=== PATIENT | male | born 1975 | race Caucasian/White ===

== ENCOUNTER 2021-11-26 07:38 | Outpatient (REF) | payer OTHER, SELFPAY ==
[2021-11-26 11:39] LABS: Appearance Urine CLEAR; Color Urine YELLOW; Glucose Urine UA NEG (NEG); Leukocyte Esterase Urine NEG (NEG); Nitrite Urine NEG (NEG); Specific Gravity - Urine 1.015 (1.005-1.025); Urine Blood 1+ (NEG); Urine Ketones NEG (NEG); Urine Protein NEG (NEG-TRACE)
[2021-11-26 11:51] LABS: Hematocrit 50.9 % (42.0-52.0); Hemoglobin 16.7 g/dl (14.0-18.0); Mean Corpuscular HGB Conc 32.8 g/dl (31.0-36.0); Mean Corpuscular Hemoglobin 29.3 pg (27.0-33.0); Mean Corpuscular Volume 89.5 fL (80.0-98.0); Mean Platelet Volume 9.4 fL (9.4-12.4); Platelet Count 309 X10*3/uL (160-400); Red Blood Count 5.69 X10*6/uL (4.60-5.80); Red Cell Distribution Width 13.2 % (11.0-16.0); White Blood Count 8.3 X10*3/uL (4.8-10.8)
[2021-11-26 11:56] LABS: Estimated Average Glucose 128 mg/dL; Hemoglobin A1c % 6.1 %
[2021-11-26 12:00] LABS: WBC Urine 0 /HPF (0-4)
[2021-11-26 12:15] LABS: Alanine Aminotransferase 37 U/L (0-40); Albumin Level 4.2 g/dL (3.5-5.0); Alkaline Phosphatase 84 U/L (39-117); Anion Gap 12 (12-20); Aspartate Amino Transferase 23 U/L (5-37); Bilirubin Total 0.4 mg/dL (0.0-1.0); Blood Urea Nitrogen 10 mg/dL (9-16); Calcium 9.5 mg/dL (8.4-10.2); Carbon Dioxide 28 mmol/L (22-29); Chloride 105 mmol/L (96-108); Cholesterol 123 mg/dL; Estimated Glomerular Filt Rate > 60; Glucose Fasting 121 mg/dL (60-99); HDL Cholesterol 37 mg/dL; LDL Cholesterol Calculated 66 mg/dl; Potassium 5.4 mmol/L (3.3-5.1); Sodium 140 mmol/L (135-145); Total Protein 7.1 g/dL (6.5-8.0); Triglycerides 104 mg/dL
[2021-11-26 12:20] LABS: Prostate Specific Antigen Scr 0.28 ng/mL (<0.05-4.0)
== END 2021-11-26 07:39 | disposition home or self-care (01) ==
LOC: HO.HMGCLDS 07:38
PROVIDERS: Visit Provider Internal Medicine
DX: Z00.00 Encounter for general adult medical examination without abnormal findings (principal)
CPT/HCPCS: 36415; 80053; 80061; 81001; 83036; 84153; 85027

== ENCOUNTER 2021-12-08 09:07 | Outpatient (REF) | payer OTHER, SELFPAY ==
[2021-12-08 11:18] LABS: Appearance Urine CLEAR; Color Urine STRAW; Glucose Urine UA NEG (NEG); Leukocyte Esterase Urine NEG (NEG); Nitrite Urine NEG (NEG); Urine Blood 2+ (NEG); Urine Ketones NEG (NEG); Urine Protein NEG (NEG-TRACE)
[2021-12-08 11:36] LABS: WBC Urine 0 /HPF (0-4)
[2021-12-08 11:37] LABS: Alanine Aminotransferase 42 U/L (0-40); Albumin Level 4.2 g/dL (3.5-5.0); Alkaline Phosphatase 86 U/L (39-117); Anion Gap 13 (12-20); Aspartate Amino Transferase 25 U/L (5-37); Bilirubin Total 0.4 mg/dL (0.0-1.0); Blood Urea Nitrogen 9 mg/dL (9-16); Calcium 10.1 mg/dL (8.4-10.2); Carbon Dioxide 26 mmol/L (22-29); Chloride 104 mmol/L (96-108); Cholesterol 134 mg/dL; Estimated Glomerular Filt Rate > 60; Glucose Fasting 99 mg/dL (60-99); HDL Cholesterol 35 mg/dL; LDL Cholesterol Calculated 69 mg/dl; Potassium 4.8 mmol/L (3.3-5.1); Sodium 138 mmol/L (135-145); Total Protein 7.1 g/dL (6.5-8.0); Triglycerides 150 mg/dL
[2021-12-08 11:47] LABS: Estimated Average Glucose 128 mg/dL; Hemoglobin A1c % 6.1 %
== END 2021-12-08 09:08 | disposition home or self-care (01) ==
LOC: HO.HMGCLDS 09:07
PROVIDERS: Visit Provider Internal Medicine
DX: Z00.00 Encounter for general adult medical examination without abnormal findings (principal); E11.9 Type 2 diabetes mellitus without complications; G56.00 Carpal tunnel syndrome, unspecified upper limb; I10 Essential (primary) hypertension; E87.5 Hyperkalemia
CPT/HCPCS: 36415; 80048; 80053; 80061; 81001; 83036

== ENCOUNTER 2021-12-14 10:57 | Emergency (ER) | payer OTHER, SELFPAY ==
--- NOTE | ~2021-12-14 | CT_ITS ---
EXAMINATION: CT ABDOMEN AND PELVIS WITHOUT CONTRAST CLINICAL INFORMATION: Right flank pain COMPARISON: None TECHNIQUE: Multidetector volumetric imaging was performed from the superior aspect of the liver through the pubic symphysis. Sagittal and coronal reformatted images were obtained on the technologist's workstation. This CT examination was performed using dose optimization techniques as appropriate, variously including the following: *Automated exposure control *Adjustment of mA and/or kV according to patient size (this includes techniques or standardized protocols for targeted exams where dose is matched to indication/reason for exam; i.e. extremities or head) *Use of iterative reconstruction technique DLP: 1254 mGy-cm FINDINGS: LUNG BASES: The visualized lung bases are unremarkable. LIVER, GALLBLADDER, AND BILIARY TREE: The liver is normal in size, shape, and attenuation. No focal hepatic lesion or biliary ductal dilatation is present. The gallbladder is unremarkable with no evidence of radiopaque gallstones, gallbladder wall thickening, or obvious pericholecystic inflammatory changes. PANCREAS: Unremarkable. SPLEEN: Unremarkable. ADRENAL GLANDS: Unremarkable. KIDNEYS AND URETERS: The kidneys are normal in size, shape, and attenuation. No hydronephrosis, hydroureter, or calculi seen. No perinephric stranding. BLADDER: Unremarkable. GASTROINTESTINAL TRACT: There is scattered stool, diverticuli and gas seen throughout the colon without distention. There is a small appendicolith within a normal caliber appendix. The stomach is nondistended and appears unremarkable. No inflammatory process seen in the abdomen. ABDOMINAL WALL: No significant hernia is appreciated. LYMPH NODES: Normal. VASCULAR: Unremarkable. PELVIC VISCERA: Unremarkable. OSSEOUS STRUCTURES: There are degenerative disc changes, vacuum disc phenomena and spinal spondylosis at the L5-S1 disc level. No aggressive lytic or sclerotic process seen. CT/CT abdomen pelvis wo con IMPRESSION: No acute intra-abdominal process seen. Scattered colonic diverticulosis without diverticulitis. Small appendicolith in a normal caliber appendix. There is no radiopaque urolith or hydroureteronephrosis in either side. Fleischner guidelines were followed.
[2021-12-14 11:03] VITALS: BP 118/59; BP 133/79; PULSE 79; PULSE 88; RESP 20; TEMP 36.8; O2SAT 95; O2SAT 97; BMI 42.3
--- NOTE | 2021-12-14 11:21 | ED_ITS ---
HPI - Male Genitourinary General Chief complaint: Urogenital-Male Stated complaint: left side pain Time Seen by Provider: 12/14/21 11:21 Source: patient and EMS Mode of arrival: EMS Limitations: no limitations History of Present Illness HPI Narrative: 46-year-old male came in for evaluation of right flank pain. Sudden onset of right flank pain started about an hour ago, the pain was described to be severe 10/10, constant, associated with nausea and diaphoresis, no aggravating factor, no relieving factor. Had a normal urination with no bloody or dark urine. Normal bowel movement. Never had this pain before. No history of kidney stones. No history of abdominal surgery. No recent back trauma or strenuous activity. Related Data Previous Rx's Medication Instructions Recorded olmesartan 20 mg tablet 20 mg PO DAILY #30 tab 12/07/20 tadalafil 20 mg tablet 20 mg PO DAILY #30 tab 01/02/21 metformin 1,000 mg tablet 1,000 mg PO BID #180 tab 07/19/21 atorvastatin 20 mg tablet 20 mg PO DAILY #90 tab 11/22/21 tamsulosin 0.4 mg capsule 0.4 mg PO BEDTIME #90 cap 11/22/21 oxycodone 5 mg tablet 5 mg PO Q8H PRN #10 tab 12/14/21 Allergies Allergy/AdvReac Type Severity Reaction Status Date / Time acetaminophen [Acetaminophen] Allergy Unknown BAD RASH Verified 12/14/21 11:08 AFTER TAKING FOR LONG TIME barium sulfate Allergy Unknown confusion Verified 12/14/21 11:08 lisinopril Allergy Cough Verified 12/14/21 11:08 Review of Systems Review of Systems: All other systems are reviewed and are negative Constitutional: Reports as per HPI and Reports no additional constitutional complaints Eyes: Reports as per HPI and Reports no additional eye complaints Reports system reviewed and no additional complaints, except as documented Cardiovascular: Reports as per HPI and Reports no additional cardiovascular complaints Respiratory: Reports as per HPI and Reports no additional respiratory complaints Gastrointestinal: Reports as per HPI and Reports no additional gastrointestinal complaints Genitourinary: Reports no additional female genitourinary complaints Musculoskeletal: Reports no additional musculoskeletal complaints Skin/Breast: Reports system reviewed and no additional complaints, except as docu Psychiatric: Reports no additional psychiatric complaints Endocrine: Reports no additional endocrine complaints Hematologic/Lymphatic: Reports no additional hematologic/lymphatic complaints Allergic/Immunologic: Reports no additional allergic/immunologic complaints Reports system reviewed and no additional complaints, except as documented and Reports Abnormal speech present [facility] Past Medical History Medical History Ankle fracture, left Annual physical exam BPH (benign prostatic hyperplasia) Carpal tunnel syndrome Cervical spine degeneration Chronic foot ulcer Hematuria Hyperkalemia Hyperlipidemia Overweight Peripheral neuropathy SVT (supraventricular tachycardia) Type 2 diabetes mellitus Family History Family History Father Lung cancer Mother No problems noted. Social History Social History Housing: House Patient Tobacco Use Status: Current everyday Tobacco user Tobacco use type: Cigarette Cigarettes Per Day: 15 e-Cigarette/Vaping Use: Never Used Advance Directives: No Advance Directives Information Provided: No Current occupational status: employed Physical Exam Vital Signs: Vital Signs: Last Vital Signs Temp 98.2 F 12/14/21 11:03 Pulse 79 12/14/21 11:03 Resp 18 12/14/21 12:06 BP 133/79 12/14/21 11:03 Pulse Ox 95 12/14/21 11:03 BMI result Body Mass Index 42.3 Vital signs have been reviewed as appeared to be correct. Blood pressure normal. Heart rate normal. Respiration rate normal. Temperature normal. Oxygen saturation normal. Appearance: Alert. Oriented X3. No acute distress. Head: Normal external exam. Normocephalic. Atraumatic. No Saenz signs noted. No raccoon eyes noted Eyes: PERRLA. EOMI. Conjunctiva and sclera normal. Eyelids normal. ENT: TM's Normal. Pharynx normal. Uvula midline. Moist mucous membranes. No trismus noted. No drooling noted. No muffled voice noted. Neck: Normal inspection. Neck supple. FROM. No adenopathy. Thyroid Normal. No meningeal signs. No neck mass noted. CVS: Normal heart rate and rhythm. Heart sound normal. No murmurs noted. Pulses normal throughout. Respiratory: No respiratory distress. Painless inspiration. Breath sounds normal. No wheezes/rales/rhonchi noted. Chest nontender. No accessory muscle usage noted or decreased air movement noted. Abdomen: Soft and nontender. Bowel sounds normal in all 4 quadrants. No distention noted. No organomegaly noted. No visible injury noted. Back: Right CVA tenderness. Full range of motion noted. Skin: Skin warm and dry. Normal skin color. Normal skin turgor. No rod hes/lesions/lacerations noted. Extremities: No lower extremity edema. Extremities exhibit normal range of motion. Extremities nontender. Neuro: Oriented X 3. Cranial nerve exam: II-XII are grossly intact No motor deficit. No sensory deficit. Reflexes normal. Course Course Course Narrative: Assessment and plan. 46-year-old male came in with sudden onset of right flank pain, CT of the abdom en showed appendicoliths with normal size appendix with leukocytosis consult from Dr. Hebert who examined the patient at the bedside appendicitis is not likely in this case Dr. Hebert's input is appreciated no CT finding of right hydronephrosis or hydroureter or obstructing stone however could have been passed. Patient's symptoms under better control with morphine in the ED will discharge the patient home with oxycodone and follow-up with urologist. [facility] - Male Genitourinary Lab Data Attestation: I reviewed the patient's lab results. Result diagrams: 12/14/21 12:17 12/14/21 12:17 Labs: Lab Results 12/14/21 12/14/21 12/14/21 Range/Units 12:17 12:17 15:14 WBC 12.1 H (4.8-10.8) X10*3/uL RBC 5.18 (4.60-5.80) X10*6/uL Hgb 15.4 (14.0-18.0) g/dl Hct 44.4 (42.0-52.0) % MCV 85.7 (80.0-98.0) fL MCH 29.7 (27.0-33.0) pg MCHC 34.7 (31.0-36.0) g/dl RDW 13.2 (11.0-16.0) % Plt Count 264 (160-400) X10*3/uL MPV 8.8 L (9.4-12.4) fL Immature Gran % (Auto) 0.3 (0.0-0.4) % Neut % (Auto) 85.3 H (45-73) % Lymph % (Auto) 8.8 L (20-40) % [place] % (Auto) 5.1 (2-11) % Eos % (Auto) 0.3 (0-4) % Baso % (Auto) 0.2 (0-2) % Lymph # (Auto) 1.1 L (1.2-4.9) X10*3/uL [place] # (Auto) 0.6 (0.1-1.2) X10*3/uL Eos # (Auto) 0.0 (0.0-0.4) X10*3/uL Baso # (Auto) 0.0 (0.0-0.2) X10*3/uL Abs Immat Gran (auto) 0.04 H (0.00-0.03) X10*3/uL Absolute Neuts (auto) 10.3 H (2.0-8.3) x10*3/uL Absolute Nucleated RBC 0.000 (0.0-0.012) X10*3/uL Nucleated RBC % (auto) 0.0 (0.0-0.2) /100WBC Sodium 137 (135-145) mmol/L Potassium 4.3 (3.3-5.1) mmol/L Chloride 104 (96-108) mmol/L Carbon Dioxide 25 (22-29) mmol/L Anion Gap 12 (12-20) BUN 8 L (9-16) mg/dL Creatinine 0.75 (0.5-1.4) mg/dL Estim Creat Clear Calc 205.8 Estimated GFR > 60 Random Glucose 140 H (60-115) mg/dL Calcium 9.2 D (8.4-10.2) mg/dL Total Bilirubin 0.4 (0.0-1.0) mg/dL Direct Bilirubin 0.2 (0.0-0.5) mg/dL AST 19 (5-37) U/L ALT 33 (0-40) U/L Alkaline Phosphatase 78 (39-117) U/L Total Protein 6.7 (6.5-8.0) g/dL Albumin 4.1 (3.5-5.0) g/dL Lipase 16 (8-78) U/L Urine Color YELLOW Urine Appearance CLEAR Urine pH 6.5 (5.0-8.0) Ur Specific [place] 1.020 (1.005-1.025) Urine Protein NEG (NEG-TRACE) MG/DL Urine Glucose (UA) NEG (NEG) MG/DL Urine Ketones NEG (NEG) MG/DL Urine Blood 1+ H (NEG) Urine Nitrite NEG (NEG) Ur Leukocyte Esterase NEG (NEG) Urine RBC 10-14 H (0) /HPF Urine WBC 0 (0-4) /HPF Ur Squamous Epith Cells NONE /LPF Urine Bacteria NONE /LPF Imaging Data CT scan - pelvis: Attestation: I personally reviewed and interpreted this imaging study as follows: Radiologist's impression: No acute intra-abdominal process seen. ?Scattered colonic diverticulosis without diverticulitis. ?Small appendicolith in a normal caliber appendix. ?There is no radiopaque urolith or hydroureteronephrosis in either side. ? ? Discharge Plan Discharge Clinical Impression: Right flank pain Patient Disposition: Home, Self-Care Instructions: Flank Pain (ED) Prescriptions: New oxycodone 5 mg tablet 5 mg PO Q8H PRN (Reason: pain) Qty: 10 0RF No Action olmesartan 20 mg tablet 20 mg PO DAILY Qty: 30 0RF tadalafil 20 mg tablet 20 mg PO DAILY Qty: 30 0RF metformin 1,000 mg tablet 1,000 mg PO BID Qty: 180 3RF atorvastatin 20 mg tablet 20 mg PO DAILY Qty: 90 3RF tamsulosin 0.4 mg capsule 0.4 mg PO BEDTIME Qty: 90 1RF Referrals: Rahul Hemphill MD [Physician] - 2 days Stand Alone Forms: Work/School Release
[2021-12-14 12:06] VITALS: RESP 18
[2021-12-14] MEDS: Ketorolac Tromethamine 30 MG/ML VIAL IVPUSH (12:06)
[2021-12-14] MEDS: Morphine Sulfate 2 MG/ML CARTRIDGE 1 MG IVPUSH (12:06)
[2021-12-14] MEDS: 0.9 % Sodium Chloride 1,000 ML 999 ML IV (12:07)
[2021-12-14 12:23] LABS: MANUAL DIFF FLAG NO
[2021-12-14 12:25] LABS: Basophils Percent Auto 0.2 % (0-2); Eosinophils Percent Auto 0.3 % (0-4); Hematocrit 44.4 % (42.0-52.0); Hemoglobin 15.4 g/dl (14.0-18.0); Imm Gran Abs Auto 0.04 X10*3/uL (0.00-0.03); Imm Gran Pct Auto 0.3 % (0.0-0.4); Lymphocytes Absolute Auto 1.1 X10*3/uL (1.2-4.9); Lymphocytes Percent Auto 8.8 % (20-40); Mean Corpuscular HGB Conc 34.7 g/dl (31.0-36.0); Mean Corpuscular Hemoglobin 29.7 pg (27.0-33.0); Mean Corpuscular Volume 85.7 fL (80.0-98.0); Mean Platelet Volume 8.8 fL (9.4-12.4); Monocytes Absolute Auto 0.6 X10*3/uL (0.1-1.2); Monocytes Percent Auto 5.1 % (2-11); Neutrophils Absolute Auto 10.3 x10*3/uL (2.0-8.3); Neutrophils Percent Auto 85.3 % (45-73); Platelet Count 264 X10*3/uL (160-400); Red Blood Count 5.18 X10*6/uL (4.60-5.80); Red Cell Distribution Width 13.2 % (11.0-16.0); White Blood Count 12.1 X10*3/uL (4.8-10.8)
[2021-12-14 12:47] LABS: Alanine Aminotransferase 33 U/L (0-40); Albumin Level 4.1 g/dL (3.5-5.0); Alkaline Phosphatase 78 U/L (39-117); Anion Gap 12 (12-20); Aspartate Amino Transferase 19 U/L (5-37); Bilirubin Direct 0.2 mg/dL (0.0-0.5); Bilirubin Total 0.4 mg/dL (0.0-1.0); Blood Urea Nitrogen 8 mg/dL (9-16); Calcium 9.2 mg/dL (8.4-10.2); Carbon Dioxide 25 mmol/L (22-29); Chloride 104 mmol/L (96-108); Creatinine Clr Calc Pharmacy 205.8; Estimated Glomerular Filt Rate > 60; Glucose Random 140 mg/dL (60-115); Lipase 16 U/L (8-78); Potassium 4.3 mmol/L (3.3-5.1); Sodium 137 mmol/L (135-145); Total Protein 6.7 g/dL (6.5-8.0)
--- NOTE | 2021-12-14 13:57 | PM.CNGS ---
History of Present Illness Consult details Consult date: 12/14/21 Requesting physician: Jolly Walker Narrative: 46-year-old male patient presenting with complaints of pain in the right flank. The pain started suddenly this morning while at work soon after going to the bathroom to urinate. Pain started in the right flank and stated in this location. He developed some nausea vomiting after the pain began. He describes the pain as sharp and nonradiating, 10/10 severity. He never had similar pain in the past. He reports 2 episodes of microscopic hematuria noted by his primary care provider. He is actually scheduled for an ultrasound 01/24/2022. He presented to the emergency department and was noted to have tenderness in the right flank. Laboratories revealed WBC of 12. A CT abdomen and pelvis was negative for nephrolithiasis. A fecalith was noted at the tip of the appendix but no inflammatory changes were found. Surgical consultation was requested for evaluation for appendicitis. Review of Systems Constitutional: Constitutional: Denies chills, Denies fever(s), Denies headache(s) and Denies poor appetite ENT: Denies dizziness and Denies headache(s) Cardiovascular: Cardiovascular: Denies chest pain, Denies rapid heart rate, Denies palpitations and Denies slow heart rate Respiratory: Respiratory: Denies chest congestion, Denies cough, Denies pain on inspiration and Denies wheezing Gastrointestinal: Gastrointestinal: Reports abdominal pain (Right flank), Denies bloating, Denies change in stool character, Denies constipation, Denies diarrhea, Reports nausea, Reports vomiting and Denies hematemesis Genitourinary: Genitourinary: Reports as per HPI and Reports difficulty urinating Musculoskeletal: Musculoskeletal: Reports back pain, Denies arthralgias, Denies joint swelling and Denies numbness Integumentary/Breasts: Skin/Breast: Denies change in pigmentation, Denies erythema and Denies rash Neurologic: Denies dizziness, Denies headache(s) and Denies numbness Psychiatric: Psychiatric: Denies anxiety and Denies depression Endocrine: Endocrine: Denies palpitations Hematologic/Lymphatic: Hematologic/Lymphatic: Denies easy bleeding, Denies easy bruising and Denies lymphadenopathy Allergic/Immunologic: Allergic/Immunologic: Denies wheezing PMFSH Past Medical History Medical History Ankle fracture, left Annual physical exam BPH (benign prostatic hyperplasia) Carpal tunnel syndrome Cervical spine degeneration Chronic foot ulcer Hematuria Hyperkalemia Hyperlipidemia Overweight Peripheral neuropathy SVT (supraventricular tachycardia) Type 2 diabetes mellitus Family History Family History Father Lung cancer Mother No problems noted. Social History Social History Housing: House Patient Tobacco Use Status: Current everyday Tobacco user Tobacco use type: Cigarette Cigarettes Per Day: 15 e-Cigarette/Vaping Use: Never Used Advance Directives: No Advance Directives Information Provided: No Current occupational status: employed Meds Allergies Allergy/AdvReac Type Severity Reaction Status Date / Time acetaminophen [Acetaminophen] Allergy Unknown BAD RASH Verified 12/14/21 11:08 AFTER TAKING FOR LONG TIME barium sulfate Allergy Unknown confusion Verified 12/14/21 11:08 lisinopril Allergy Cough Verified 12/14/21 11:08 Physical Exam Vital Signs: Vital Signs: Last Vital Signs Temp 98.2 F 12/14/21 11:03 Pulse 79 12/14/21 11:03 Resp 18 12/14/21 12:06 BP 133/79 12/14/21 11:03 Pulse Ox 95 12/14/21 11:03 BMI result Body Mass Index 42.3 Const: General: cooperative, comfortable and well developed Nutritional Appearance: well nourished Orientation/consciousness: patient oriented x3 Eyes: Sclerae: sclerae normal EOM: EOMs intact bilaterally Neck: Neck: Yes normal visual inspection Resp: Effort & Inspection: normal respiratory effort, no cough, no respiratory distress and no stridor Cardio: Jugular venous distension: no JVD GI: Other: Tenderness noted in the left flank. No anterior abdominal pain is noted in the right upper quadrant or right lower quadrant. There is no rebound, guarding, or rigidity. Inspection: Yes normal to inspection Palpation (GI): Soft to palpation, nontender, no guarding and not rigid Percussion: Yes normal to percussion Auscultation: normal bowel sounds Rectal Exam - Male: Yes deferred Skin: General skin exam: dry skin Rashes: no rashes Neuro: General: patient oriented x3 and no focal motor deficits Extrem: General: Yes full ROM and Yes no clubbing, cyanosis or edema Psych: Appearance: grossly normal Results Labs Result diagrams: 12/14/21 12:17 12/14/21 12:17 Labs: Abnormal lab results 12/14/21 12/14/21 Range/Units 12:17 12:17 WBC 12.1 H (4.8-10.8) X10*3/uL MPV 8.8 L (9.4-12.4) fL Neut % (Auto) 85.3 H (45-73) % Lymph % (Auto) 8.8 L (20-40) % Lymph # (Auto) 1.1 L (1.2-4.9) X10*3/uL Abs Immat Gran (auto) 0.04 H (0.00-0.03) X10*3/uL Absolute Neuts (auto) 10.3 H (2.0-8.3) x10*3/uL BUN 8 L (9-16) mg/dL Random Glucose 140 H (60-115) mg/dL Short CBC 12/14/21 Range/Units 12:17 WBC 12.1 H (4.8-10.8) X10*3/uL Hgb 15.4 (14.0-18.0) g/dl Hct 44.4 (42.0-52.0) % Plt Count 264 (160-400) X10*3/uL BMP 12/14/21 12:17 Sodium 137 Potassium 4.3 Chloride 104 Carbon Dioxide 25 BUN 8 L Creatinine 0.75 Calcium 9.2 D Liver Function 12/14/21 Range/Units 12:17 Total Bilirubin 0.4 (0.0-1.0) mg/dL Direct Bilirubin 0.2 (0.0-0.5) mg/dL AST 19 (5-37) U/L ALT 33 (0-40) U/L Alkaline Phosphatase 78 (39-117) U/L Albumin 4.1 (3.5-5.0) g/dL All other labs normal. Assessment and Plan (1) Right flank pain: Status: Acute (2) Hematuria: Status: Acute Plan 46-year-old male patient with a sudden onset of abdominal pain located mainly in the right flank. Pain is nonradiating and not associated with motion. Patient has a prior history of microscopic hematuria. Workup today revealed an elevated WBC and CT with a fecalith within the appendix but no inflammatory changes. No nephrolithiasis was identified as well. Abdominal examination is very benign with no right lower quadrant or right upper quadrant tenderness. There is mild CVA tenderness to palpation. Procedures Date of Service Date of Service: 12/14/21
--- NOTE | 2021-12-14 13:59 | PC.NURSE ---
patient reports feeling improved overall, but symptoms are starting to increase at this time. patient in no obvious distress, family at bedside.
[2021-12-14 15:20] LABS: Appearance Urine CLEAR; Color Urine YELLOW; Glucose Urine UA NEG (NEG); Leukocyte Esterase Urine NEG (NEG); Nitrite Urine NEG (NEG); PH 6.5 (5.0-8.0); UACC Culture Trigger NO; Urine Blood 1+ (NEG); Urine Ketones NEG (NEG); Urine Protein NEG (NEG-TRACE)
[2021-12-14 15:41] LABS: WBC Urine 0 /HPF (0-4)
== END 2021-12-14 16:06 | disposition home or self-care (01) ==
PROVIDERS: Emergency Provider Emergency Medicine; PCP Internal Medicine
DX: R10.9 Unspecified abdominal pain (principal); D72.829 Elevated white blood cell count, unspecified; E11.9 Type 2 diabetes mellitus without complications; E78.5 Hyperlipidemia, unspecified; F17.200 Nicotine dependence, unspecified, uncomplicated; Z79.02 Long term (current) use of antithrombotics/antiplatelets
CPT/HCPCS: 36415; 74176; 80048; 80076; 81001; 83690; 85025; 96361; 96374; 96375; 99283; 99284; J1885; J2270

== ENCOUNTER 2022-01-24 08:08 | Outpatient (REF) | payer OTHER, SELFPAY ==
--- NOTE | 2022-01-24 08:00 | EMG_ITS ---
Bilateral median and ulnar motor and sensory studies were performed. Bilateral radial sensory studies were performed and paraspinal muscles were tested with a needle. IMPRESSION: This study revealed [id number] bilateral median neuropathy across carpal tunnel, mild ulnar neuropathy across cubital tunnel, and underlying demyelinating and axonal sensorimotor peripheral neuropathy. MD JOEY Vega/EMILY / [id number]
== END 2022-01-24 08:09 | disposition home or self-care (01) ==
LOC: HO.NEURO 08:08
PROVIDERS: Visit Provider Internal Medicine
DX: G56.03 Carpal tunnel syndrome, bilateral upper limbs (principal)
CPT/HCPCS: 95886; 95911

== ENCOUNTER 2022-04-01 08:49 | Outpatient (REF) | payer OTHER, SELFPAY ==
--- NOTE | ~2022-04-01 | US_ITS ---
EXAMINATION: US RETROPERITONEAL COMPLETE (RENAL) CLINICAL INFORMATION: Hematuria, unspecified. COMPARISON: CT abdomen and pelvis without contrast 12/14/2021. TECHNIQUE: Real-time imaging of the kidneys and bladder. FINDINGS: RIGHT KIDNEY: 13.6 x 5.4 x 6.9 cm (SAG x AP x TRV). The kidney is normal in size, contour, and echogenicity. Renal cortical thickness is normal. No calculi or focal parenchymal lesions. No hydronephrosis. LEFT KIDNEY: 13.3 x 6.0 x 6.2 cm (SAG x AP x TRV). The kidney is normal in size, contour, and echogenicity. Renal cortical thickness is normal. No calculi or focal parenchymal lesions. No hydronephrosis. BLADDER: Well distended and normal. Bilateral ureteral jets are demonstrated. Prevoid bladder volume is 481 mL. Postvoid bladder volume is 11 mL. PROSTATE VOLUME: 23 mL. US/US retroperitoneal comp IMPRESSION: Unremarkable renal ultrasound. Tiny postvoid residual bladder volume. Normal bilateral ureteral jets.
== END 2022-04-01 08:50 | disposition home or self-care (01) ==
LOC: HO.HMGCX 08:49
PROVIDERS: Visit Provider Internal Medicine
DX: R31.9 Hematuria, unspecified (principal)
CPT/HCPCS: 76770

== ENCOUNTER → 2022-05-09 09:59 | Outpatient (BNVA) | payer OTHER, SELFPAY | PROVIDERS: PCP Internal Medicine; Visit Provider Urology | DX: N40.0 Benign prostatic hyperplasia without lower urinary tract symptoms (principal); N52.1 Erectile dysfunction due to diseases classified elsewhere; E11.69 Type 2 diabetes mellitus with other specified complication | CPT/HCPCS: 51798 ==

== ENCOUNTER 2022-08-26 06:26 | Outpatient (REF) | payer OTHER, SELFPAY ==
[2022-08-26 11:58] LABS: Hematocrit 48.1 % (42.0-52.0); Hemoglobin 16.2 g/dl (14.0-18.0); Mean Corpuscular HGB Conc 33.7 g/dl (31.0-36.0); Mean Corpuscular Hemoglobin 29.8 pg (27.0-33.0); Mean Corpuscular Volume 88.6 fL (80.0-98.0); Mean Platelet Volume 9.5 fL (9.4-12.4); Platelet Count 299 X10*3/uL (160-400); Red Blood Count 5.43 X10*6/uL (4.60-5.80); Red Cell Distribution Width 13.3 % (11.0-16.0); White Blood Count 7.8 X10*3/uL (4.8-10.8)
[2022-08-26 12:15] LABS: Alanine Aminotransferase 33 U/L (0-40); Albumin Level 4.2 g/dL (3.5-5.0); Alkaline Phosphatase 77 U/L (39-117); Anion Gap 15 (12-20); Aspartate Amino Transferase 20 U/L (5-37); Bilirubin Total 0.3 mg/dL (0.0-1.0); Blood Urea Nitrogen 9 mg/dL (9-16); Calcium 9.6 mg/dL (8.4-10.2); Carbon Dioxide 25 mmol/L (22-29); Chloride 105 mmol/L (96-108); Cholesterol 125 mg/dL; Estimated Glomerular Filt Rate > 60; Glucose Fasting 115 mg/dL (60-99); HDL Cholesterol 36 mg/dL; LDL Cholesterol Calculated 59 mg/dl; Potassium 5.1 mmol/L (3.3-5.1); Sodium 140 mmol/L (135-145); Triglycerides 150 mg/dL
[2022-08-26 12:31] LABS: Estimated Average Glucose 120 mg/dL; Hemoglobin A1c % 5.8 %
[2022-08-26 12:43] LABS: Folate 6.7 ng/mL (> or = 4.0); Vitamin B12 197 pg/mL (200-900)
== END 2022-08-26 06:27 | disposition home or self-care (01) ==
LOC: HO.HMGCLDS 06:26
PROVIDERS: PCP Internal Medicine; Visit Provider Internal Medicine
DX: E11.9 Type 2 diabetes mellitus without complications (principal); E87.5 Hyperkalemia; I10 Essential (primary) hypertension
CPT/HCPCS: 36415; 80053; 80061; 82607; 82746; 83036; 85027

== ENCOUNTER 2023-02-10 06:41 | Outpatient (REF) | payer OTHER, SELFPAY ==
[2023-02-10 12:07] LABS: Alanine Aminotransferase 35 U/L (0-40); Alkaline Phosphatase 79 U/L (39-117); Anion Gap 13 (12-20); Aspartate Amino Transferase 18 U/L (5-37); Bilirubin Total 0.4 mg/dL (0.0-1.0); Blood Urea Nitrogen 8 mg/dL (9-16); Calcium 9.1 mg/dL (8.4-10.2); Carbon Dioxide 25 mmol/L (22-29); Chloride 107 mmol/L (96-108); Cholesterol 133 mg/dL; Estimated Glomerular Filt Rate > 60; Glucose Fasting 117 mg/dL (60-99); HDL Cholesterol 34 mg/dL; LDL Cholesterol Calculated 70 mg/dl; Potassium 5.2 mmol/L (3.3-5.1); Sodium 140 mmol/L (135-145); Total Protein 6.5 g/dL (6.5-8.0); Triglycerides 146 mg/dL
[2023-02-10 12:14] LABS: Creatinine Urine 70.73 mg/dL; Microalbumin Urine < 5.0 mg/L
[2023-02-10 12:17] LABS: Estimated Average Glucose 131 mg/dL; Hemoglobin A1c % 6.2 %
[2023-02-10 12:39] LABS: Folate 4.2 ng/mL (> or = 4.0); Vitamin B12 1381 pg/mL (200-900)
== END 2023-02-10 06:42 | disposition home or self-care (01) ==
LOC: HO.HMGCLDS 06:41
PROVIDERS: PCP Internal Medicine; Visit Provider Internal Medicine
DX: E53.8 Deficiency of other specified B group vitamins (principal); I10 Essential (primary) hypertension; G56.00 Carpal tunnel syndrome, unspecified upper limb; E78.5 Hyperlipidemia, unspecified
CPT/HCPCS: 36415; 80053; 80061; 82043; 82607; 82746; 83036

== ENCOUNTER → 2023-03-26 08:12 | Outpatient (BNVA) | payer OTHER, SELFPAY | PROVIDERS: PCP Internal Medicine; Visit Provider Orthopaedic Surgery ==

== ENCOUNTER 2023-04-24 07:07 | Day surgery (SDC) | payer OTHER, SELFPAY ==
[2023-04-21 13:33] VITALS: BMI 41.1
--- NOTE | 2023-04-23 09:15 | HO.ANESPROP2 ---
Documented by User: Valery Mccall NP 04/23/23 09:16 HPI - Anesthesia Eval Consult details Narrative: 48yo M for Right Carpal Tunnel Release, Cubital Tunnel Release vs transposition PMFSH Active Problems Active Problems: All Active Problems (Updated 04/21/23 @ 13:28 by Zaira Vickers, RN) HTN (hypertension) (Acute) Male erectile dysfunction, unspecified (Acute) Right flank pain (Acute) Cervical radiculopathy (Acute) Erectile dysfunction associated with type 2 diabetes mellitus (Acute) Vitamin B12 deficiency (Acute) Carpal tunnel syndrome on both sides (Acute) Cubital tunnel syndrome, bilateral (Acute) Overweight (Acute) Hyperlipidemia (Acute) Hematuria (Acute) Hyperkalemia (Acute) BPH (benign prostatic hyperplasia) (Acute) Carpal tunnel syndrome (Acute) Type 2 diabetes mellitus (Acute) Annual physical exam (Acute) Past Medical History Medical History (Updated 04/21/23 @ 13:28 by Zaira Vickers RN) Ankle fracture, left Annual physical exam BPH (benign prostatic hyperplasia) Carpal tunnel syndrome Cervical spine degeneration Chronic foot ulcer Hematuria History of snoring Hyperkalemia Hyperlipidemia Overweight Peripheral neuropathy SVT (supraventricular tachycardia) Type 2 diabetes mellitus Family History Family History Father Lung cancer Mother No problems noted. Sister Substance use disorder Sister Substance use disorder Surgical History Surgical History (Updated 04/24/23 @ 07:52 by Isabella Back) H/O cardiac radiofrequency ablation H/O foot surgery [place] teeth extracted Social History Social History (Updated 03/26/23 @ 08:29 by DEEP Payton) Housing: House Patient Tobacco Use Status: Current everyday Tobacco user Tobacco use type: Cigarette Cigarettes Per Day: 10 Years Smoked: 32 Smoked in Last 30 Days: Yes e-Cigarette/Vaping Use: Never Used Use of substances other than those prescribed or required for medical reasons: No Are you DNR?: No Advance Directives: No Advance Directives Information Provided: Yes Current occupational status: employed 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 Cognitive needs: No Hearing needs: No Vision needs: No Meds Allergies Allergy/AdvReac Type Severity Reaction Status Date / Time acetaminophen [Acetaminophen] Allergy Unknown BAD RASH Verified 04/24/23 07:52 AFTER TAKING FOR LONG TIME lisinopril Allergy Cough Verified 04/24/23 07:52 Exam Exam Date and Time: April 23, 2023 0915 Height,Weight and Vital Signs: Height 6 ft 5 in Weight 157.397 kg Pertinent Lab Results Pertinent Lab Results: Laboratory Tests 08/26/22 02/10/23 06:30 06:46 WBC 7.8 Hgb 16.2 Hct 48.1 Plt Count 299 Sodium 140 Potassium 5.2 H Chloride 107 Carbon Dioxide 25 BUN 8 L Creatinine 0.79 Assessment and Plan Assessment Anesthesia Assessment: Chart Reviewed Documented by User: Judith Prescott MD 04/24/23 10:00 [facility] Past Medical History Medical History (Updated 04/21/23 @ 13:28 by Zaira Vickers RN) Ankle fracture, left Annual physical exam BPH (benign prostatic hyperplasia) Carpal tunnel syndrome Cervical spine degeneration Chronic foot ulcer Hematuria History of snoring Hyperkalemia Hyperlipidemia Overweight Peripheral neuropathy SVT (supraventricular tachycardia) Type 2 diabetes mellitus Family History Family History Father Lung cancer Mother No problems noted. Sister Substance use disorder Sister Substance use disorder Family history of problems with anesthesia: No Surgical History Surgical History (Updated 04/24/23 @ 07:52 by Isabella Back) H/O cardiac radiofrequency ablation H/O foot surgery [place] teeth extracted History of Problems with Anesthesia: No Social History Social History (Updated 03/26/23 @ 08:29 by DEEP Payton) Housing: House Patient Tobacco Use Status: Current everyday Tobacco user Tobacco use type: Cigarette Cigarettes Per Day: 10 Years Smoked: 32 Smoked in Last 30 Days: Yes e-Cigarette/Vaping Use: Never Used Use of substances other than those prescribed or required for medical reasons: No Are you DNR?: No Advance Directives: No Advance Directives Information Provided: Yes Current occupational status: employed 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 Cognitive needs: No Hearing needs: No Vision needs: No Meds Allergies Allergy/AdvReac Type Severity Reaction Status Date / Time acetaminophen [Acetaminophen] Allergy Unknown BAD RASH Verified 04/24/23 07:52 AFTER TAKING FOR LONG TIME lisinopril Allergy Cough Verified 04/24/23 07:52 Exam Airway Mallampati Class: II TM Dist: >3cm Neck ROM: Full Assessment and Plan Assessment Anesthesia Assessment: Anesthesia Plan Discussed Final Anesthetic Review Family History of Problems with Anesthesia: No History of Problems with Anesthesia: No NPO: Yes ASA Class: III Final Preanesthetic Review: No Changes in Pt Med Stat, Meds/Allgs Chart Reviewed, Consent Obtained/Reviewed and Anes Risks/Benef Reviewed Patient Risk: Intermediate Procedure Risk: Low Anesthetic Plan Anesthetic Plan: GA Disposition: Standard PACU
[2023-04-24] VITALS (7 sets, daily range): BP systolic 133–158; BP diastolic 83–97; PULSE 81–97; RESP 12–16; TEMP 36.6–36.8; O2SAT 94–97; BMI 39.1
[2023-04-24 08:07] LABS: Glucose, Whole Blood 134 mg/dL (60-115)
[2023-04-24] MEDS: Lactated Ringers 1,000 ML 100 ML IVCONT (08:10)
--- NOTE | 2023-04-24 09:51 | MHC.SHP ---
Pre-Procedural Eval Section A Date of Service: 04/24/23 The patient is an INPATIENT: No Changes since office visit: No Cold of Flu in the past 2 weeks, No New Medical Problems, No Changes in Medication and No Patient answered all questions The History & Physical has been completed within 30 days and I have reviewed it.: Yes Section B Chief Complaint: Lesion of ulnar nerve, right upper limb,carpal suhail Allergies: Allergies Allergy/AdvReac Type Severity Reaction Status Date / Time acetaminophen [Acetaminophen] Allergy Unknown BAD RASH Verified 04/24/23 07:52 AFTER TAKING FOR LONG TIME lisinopril Allergy Cough Verified 04/24/23 07:52 Plan I have reviewed the history and physical and performed a pertinent physical examination on my patient. No changes have occurred unless specified. Time Spent With Patient Time: Total time managing care of this patient today ____ minutes.
--- NOTE | 2023-04-24 09:51 | W.PM.OPN ---
Operative Note Operative Note Date of Service: 04/24/23 Narrative: Operative Note Narrative: Preop diagnosis: 1. Right Cubital tunnel syndrome 2. Right carpal tunnel syndrome Postop diagnosis: Same Procedure: 1. Right Cubital Tunnel Release 2. Right carpal tunnel release Surgeon: Missy Flores MD Anesthesia: General Anesthesia Findings: Thickening and fibrosis about the ulnar nerve at the cubital tunnel Implants: none Tourniquet time: 35 minutes EBL: 5.0 ml Specimen: none Drains: None Complications: None Disposition: Brought to the recovery room in stable condition Plan: Follow-up in 10-14 days for wound check, and suture removal Indications: The patient is 48 years old with right carpal tunnel syndrome and right cubital tunnel syndrome . The risks and benefits of operative treatment, including but not limited to risk of damage to blood vessels, nerves, tendons, infection, recurrence, persistent pain or numbness, incomplete resolution of preoperative symptoms, or need for further surgery were discussed with the patient and they wished to proceed with surgery. Procedure: Once consent was obtained patient was brought back to the operating suite and placed in the operating table in a supine position. Perioperative antibiotics and anesthesia was administered by the anesthesia team. The limb was prepped and draped in a standard surgical fashion, and a sterile tourniquet applied to the proximal aspect of the right upper extremity. The limb was elevated exsanguinated with Esmarch bandage and the tourniquet inflated to 250 mm of mercury for a total tourniquet time of 35 minutes. Once assured that we had a good block, a 2.0 cm longitudinal incision was made centered over the right carpal tunnel. The incision was made through the skin to the subcutaneous tissues using a #15 blade. Dissection was made down to the level of the transverse carpal ligament with care being taken to protect the palmar cutaneous nerve. Once the transverse carpal ligament was clearly visualized, a longitudinal incision was made in the transverse carpal ligament 1st using a #15 blade, then using tenotomy scissors under direct visualization. Care was taken to look for and protect the motor branch of the median nerve when seen in this area. Once satisfied with our carpal tunnel release the wound was irrigated with normal saline. A 6 cm gently curved but longitudinally oriented incision was made centered over the cubital tunnel of the right upper extremity. Incision was made through the skin to the subcutaneous tissues using a # 15 Blade. I then dissected down to the level of the medial epicondyle and the cubital tunnel using tenotomy scissors. Care was taken to protect the lateral antebrachial cutaneous nerve. The ulnar nerve was identified just posterior to the medial intermuscular septum. The ulnar nerve was released in a proximal to distal direction using tenotomy in iris scissors while directly visualizing and protecting the ulnar nerve. Thickening and fibrosis was appreciated about the ulnar nerve as it passed through the cubital tunnel. The ulnar nerve was assessed as I passed the elbow through full flexion and extension and was found to remain stable within its groove. At this point the tourniquet was deflated and hemostasis obtained with a brief period of local pressure and bipolar electrocautery. The wound was copiously irrigated with normal saline. The subcutaneous layer was closed with 4-0 Vicryl suture, and the skin edges were reapproximated using a subcuticular closure with 4-0 Monocryl suture. Mastisol and Steri-Strips were applied.. The wound was infiltrated with some 0.5% plain ropivacaine for postop pain control and sterile dressings were applied. The patient appears to have tolerated the procedure well and with no complications. All digits were well vascularized conclusion of the case.
== END 2023-04-24 12:45 | disposition home or self-care (01) ==
PROVIDERS: PCP Internal Medicine; Visit Provider Orthopaedic Surgery
PROC: (CPT 64721; principal; 2023-04-24 08:50)
PROC: (CPT 64718; 2023-04-24 08:50)
DX: G56.01 Carpal tunnel syndrome, right upper limb (principal); G56.21 Lesion of ulnar nerve, right upper limb; E11.9 Type 2 diabetes mellitus without complications
CPT/HCPCS: 64721; 64718; 82947; J0690; J1100; J2250; J2405; J2795; J3010

== ENCOUNTER 2023-05-07 13:36 | Outpatient (AMB) | payer OTHER, SELFPAY ==
--- NOTE | 2023-05-07 13:46 | A.OFFVIS_ITS ---
Intake Intake Visit Reasons: PO R Cubital & CTR 04/24/23 AR Intake Note: Woody 48 yr old male presents today for his P/O visit for his right CTS and Cubital release from 04/24/23. Sutures removed and steri strips applied. States his numbness is some what better but still has numbness. Allergies acetaminophen [Acetaminophen] Allergy (Unknown, Verified 05/07/23 14:02) BAD RASH AFTER TAKING FOR LONG TIME lisinopril Allergy (Verified 05/07/23 14:02) Cough HPI PO R Cubital & CTR 04/24/23 AR HPI Details Woody is a 48 year old right hand dominant man who presents S/P right carpal tunnel release & cubital tunnel release, DOS: 04/24/23. He says he is doing well and denies any pain. He says his sensation has sli ghtly improved but he continues to have numbness in all fingers of his right hand. He continues to have dense numbness in all digits of his left hand. He would like to schedule surgery sooner for his left side as he is remaining out of work until his surgeries are completed [facility] Medical History Ankle fracture, left Annual physical exam BPH (benign prostatic hyperplasia) Carpal tunnel syndrome Cervical spine degeneration Chronic foot ulcer Hematuria History of snoring Hyperkalemia Hyperlipidemia Overweight Peripheral neuropathy SVT (supraventricular tachycardia) Type 2 diabetes mellitus Surgical History H/O cardiac radiofrequency ablation H/O foot surgery [place] teeth extracted Family History Father Lung cancer Mother No problems noted. 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 Sutures removed and Steri-Strips applied He can make a fist and extend all his digits Sensation is slightly improved, but still with dense numbness to the tips of all digits of the right hand Cap refill is brisk Nerve Conduction Study: IMPRESSION:? This study revealed [id number] bilateral median neuropathy across carpal tunnel, mild ulnar neuropathy across cubital tunnel, and underlying demyelinating and axonal sensorimotor peripheral neuropathy. ? Adria Donahue MD 01/24/2022 Psych Appearance: grossly normal Affect: normal affect Attitude: cooperative Assessment & Plan Assessment & Plan (1) Carpal tunnel syndrome on both sides: Code(s): G56.03 - Carpal tunnel syndrome, bilateral upper limbs (2) Cubital tunnel syndrome, bilateral: Code(s): G56.23 - Lesion of ulnar nerve, bilateral upper limbs (3) Type 2 diabetes mellitus: Code(s): E11.9 - Type 2 diabetes mellitus without complications Plan Assessment & Plan: 1. Right Carpal tunnel syndrome, S/P release DOS: 04/24/23 Pre-operatively with dense numbness 2. Right Cubital tunnel syndrome, S/P release DOS: 04/24/23 Pre-operatively with dense numbness No thenar or intrinsic wasting The patient appears to be doing well post-operatively I educated him about the post-operative course I discussed activity modifications, he is to lift nothing heavier than a cellphone for the next two weeks He will perform gentle ROM exercises at home He should avoid any underwater activities for the next 5 days He should gently massage about the incision site to reduce the risk of hype rsensitivity 3. Left Carpal tunnel syndrome, mild-moderate With dense numbness 4. Left Cubital tunnel syndrome, mild With dense numbness No thenar or intrinsic wasting I educated him about this condition I discussed treatment options The patient would like to proceed with surgery The risks and benefits of operative treatment were discussed with the patient and the patient wishes to proceed with surgery. These risks include, but are not limited to risk of damage to blood vessels, nerves, tendons, infection, recurrence, incomplete relief of preoperative symptoms, persistent pain, possible need for further surgery and the risks associated with regional blocks and anesthesia. The plan is to take the patient to the operating room sometime in the next few weeks for the following procedures: 1. Left carpal tunnel release, under general 2. Left cubital tunnel release vs transposition, under general All of the preoperative paperwork including the consent was filled out today. All the patient's questions were answered. The patient understands that they will be contacted by our dental scheduler soon to schedule this procedure He denies blood thinners, asthma, heart, lung, kidney issues He says he is Diabetic, is taking metformin and his most recent HgA1c was 6.2% on 02/10/23 Scribed for Missy Flores MD by Rubio Ayala, chief medical officer, on 05/07/23 at 2:05 PM, EST. Coding Level of Care Code Est Pt Level 4 (01226) Diagnoses Carpal tunnel syndrome on both sides G56.03 Cubital tunnel syndrome, bilateral G56.23 Type 2 diabetes mellitus E11.9
== END 2023-05-07 14:15 | disposition home or self-care (01) ==
PROVIDERS: Visit Provider Orthopaedic Surgery
DX: G56.03 Carpal tunnel syndrome, bilateral upper limbs (principal); G56.23 Lesion of ulnar nerve, bilateral upper limbs; E11.9 Type 2 diabetes mellitus without complications
CPT/HCPCS: 99214

== ENCOUNTER → 2023-05-07 13:36 | Outpatient (BNVA) | payer OTHER, SELFPAY | PROVIDERS: Visit Provider Orthopaedic Surgery ==

== ENCOUNTER 2023-05-12 11:00 | Outpatient (AMB) | payer OTHER, SELFPAY ==
--- NOTE | 2023-05-12 11:21 | A.OFFVIS_ITS ---
Intake Vital Signs 05/12/23 11:23 Height 6 ft 5 in Weight 337 lb BMI 40.0 BP 119/73 Blood Pressure Location Lt brachial Position Sitting Pulse 91 Intake Visit Reasons: Colonoscopy screening Intake Note: Patient 1st pre colonoscopy screening. Patient cc: diarrhea on ad off. Denies any other GI issues. Digital Assistant Required: No Accompanied by: Spouse Allergies acetaminophen [Acetaminophen] Allergy (Unknown, Verified 05/12/23 11:21) BAD RASH AFTER TAKING FOR LONG TIME lisinopril Allergy (Verified 05/12/23 11:21) Cough Medication List - Last Reconciled 05/12/23 by Kinga Salcedo PA-C atorvastatin 20 mg PO DAILY cyanocobalamin (vitamin B-12) 1,000 mcg PO DAILY metformin 1,000 mg PO BID olmesartan 20 mg PO DAILY oxycodone-acetaminophen 5-325 mg 1 tab PO Q6H PRN tadalafil 10 mg PO DAILY 90 days tamsulosin 0.4 mg PO BEDTIME HPI HPI Comments History of Present Illness Details A 48 y/o male referred for index screening colonoscopy-he has no GI or general complaints Normal bowel pattern, good appetite No family history of GI cancer No respiratory or cardiac issues Recent carpal tunnel surgery doing well No nausea, vomiting, hematemesis, hematochezia fever or chills PFSH Medical History Ankle fracture, left Annual physical exam BPH (benign prostatic hyperplasia) Carpal tunnel syndrome Cervical spine degeneration Chronic foot ulcer Hematuria History of snoring Hyperkalemia Hyperlipidemia Overweight Peripheral neuropathy SVT (supraventricular tachycardia) Type 2 diabetes mellitus Surgical History H/O cardiac radiofrequency ablation H/O foot surgery [place] teeth extracted Family History Father Lung cancer Mother No problems noted. 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 Cognitive needs: No Hearing needs: No Vision needs: No Review of Systems Const All systems reviewed & are unremarkable except as noted in HPI and below Card Denies chest pain and Denies dyspnea Resp Denies dyspnea GI Denies abdominal pain, Denies nausea and Denies vomiting Physical Exam Vital Signs: Last Vital Signs Pulse 91 05/12/23 11:23 BP 119/73 05/12/23 11:23 BMI result Body Mass Index 40.0 Const General: cooperative, healthy appearing and comfortable Nutritional Appearance: overweight Orientation/consciousness: patient oriented x3 Limitations: no limitations Eyes Sclerae: sclerae normal Resp Effort & Inspection: normal respiratory effort and able to speak in complete sentences Auscultation: clear to auscultation bilaterally Cardio Rate: regular rate Rhythm: regular rhythm Heart sounds: S1 normal heart sound present and S2 normal heart sound present GI Palpation (GI): Soft to palpation and nontender Auscultation: normal bowel sounds Skin General skin exam: no rashes or lesions noted Neuro General: patient oriented x3 Extrem General: Yes full ROM Psych Appearance: grossly normal and well kempt Mental Status: mental status grossly normal Speech and movement: Normal speech and movement present Affect: normal affect Attitude: cooperative Thought process: Normal thought process present Thought content: Normal thought content present Insight: Good insight present (Psych) Judgement: Good judgement present (Psych) Assessment & Plan Assessment & Plan (1) Encounter for screening colonoscopy: Comment: Shanika Orourke index screening colonoscopy-no GI complaints Code(s): Z12.11 - Encounter for screening for malignant neoplasm of colon Plan Index screening colonoscopy MG omit metformin tatiana before as well morning of Bariatric bed Orders: Orders Colonoscopy - GI Use Only Today Z12.11 - Encounter for screening for malignant neoplasm of colon Medications: New bisacodyl (Dulcolax (bisacodyl)) Take 4 tablets by mouth at 12:00pm the day before your procedure. 20 mg (4 x 5 mg) PO ONCE 4 tabs 0RF colonoscopy prep 1 day Z12.11 - Encounter for screening for malignant neoplasm of colon polyethylene glycol 3350 (Miralax) Take as directed by mouth the day before your procedure. 238 grams PO ONCE PRN 238 grams 0RF laxative effect 1 day Patient Instructions: A 48 y/o male index screening colonoscopy no GI complaint Discussed procedure, risks, need for escorted due to anesthesia MiraLax Gatorade split prep Omit metformin evening before as well as morning of procedure Literature given Encouraged to call questions or concerns Appreciate the opportunity assist in the care the patient Coding Level of Care Code New Pt Level 3 (26215) Diagnoses Encounter for screening colonoscopy Z12.11 Time Spent (min) 25
[2023-05-12 11:23] VITALS: BP 119/73; PULSE 91; BMI 40.0
== END 2023-05-12 13:00 | disposition home or self-care (01) ==
PROVIDERS: PCP Internal Medicine; Visit Provider Physician Assistant
DX: Z01.818 Encounter for other preprocedural examination (principal); Z12.11 Encounter for screening for malignant neoplasm of colon
CPT/HCPCS: 99203

== ENCOUNTER → 2023-05-12 11:00 | Outpatient (BNVA) | payer OTHER, SELFPAY | PROVIDERS: PCP Internal Medicine; Visit Provider Physician Assistant ==

== ENCOUNTER 2023-06-04 12:51 | Outpatient (AMB) | payer OTHER, SELFPAY ==
--- NOTE | 2023-06-04 12:58 | MHC.OFFVIS ---
Intake Vital Signs 06/04/23 13:03 Height 7 ft 5 in Weight 337 lb BMI 29.9 Handedness Right Intake Visit Reasons: Postop-R Cubital & CTR 04/24/23 AR Follow up Intake Note: Woody is a 48 year old right hand dominant male presents today for his P/O visit for his right CTS and Cubital release from 04/24/23. Patient reports strength is feeling a little bit better than before. He states that his numbness is a little bit better after the surgery. Allergies acetaminophen [Acetaminophen] Allergy (Unknown, Verified 06/04/23 13:02) BAD RASH AFTER TAKING FOR LONG TIME lisinopril Allergy (Verified 06/04/23 13:02) Cough HPI Postop-R Cubital & CTR 04/24/23 AR Follow up HPI Details Woody is a 48 year old right hand dominant man who presents to discuss his left carpal & cubital tunnel syndrome. He is scheduled for surgery on 06/16/23 In regards to his right hand he says his sensation has improved more since his last appointment, but he continues to have numbness in all fingers of his right hand. He continues to have dense numbness in all digits of his left hand. [facility] Medical History Ankle fracture, left Annual physical exam BPH (benign prostatic hyperplasia) Carpal tunnel syndrome Cervical spine degeneration Chronic foot ulcer Hematuria History of snoring Hyperkalemia Hyperlipidemia Overweight Peripheral neuropathy SVT (supraventricular tachycardia) Type 2 diabetes mellitus Surgical History H/O cardiac radiofrequency ablation H/O foot surgery [place] teeth extracted Family History Father Lung cancer Mother No problems noted. 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 Cognitive needs: No Hearing needs: No Vision needs: No Physical Exam Vital Signs: BMI result Body Mass Index 29.9 Const General: no acute distress and alert Orientation/consciousness: patient oriented x3 Neuro General: patient oriented x3 Extrem Other: The patient was alert oriented and in no acute distress He can make a fist and extend all his digits Sensation is slightly improved compared to last appointment, but still with dense numbness to the tips of all digits of the right hand Dense numbness to the tips of all digits of the left hand Cap refill is brisk Nerve Conduction Study: IMPRESSION:? This study revealed [id number] bilateral median neuropathy across carpal tunnel, mild ulnar neuropathy across cubital tunnel, and underlying demyelinating and axonal sensorimotor peripheral neuropathy. ? Adria Donahue MD 01/24/2022 Psych Appearance: grossly normal Affect: normal affect Attitude: cooperative Assessment & Plan Assessment & Plan (1) Carpal tunnel syndrome on both sides: Code(s): G56.03 - Carpal tunnel syndrome, bilateral upper limbs (2) Cubital tunnel syndrome, bilateral: Code(s): G56.23 - Lesion of ulnar nerve, bilateral upper limbs (3) Type 2 diabetes mellitus: Code(s): E11.9 - Type 2 diabetes mellitus without complications Plan Assessment & Plan: 1. Left Carpal tunnel syndrome, mild-moderate With dense numbness 2. Left Cubital tunnel syndrome, mild With dense numbness No thenar or intrinsic wasting I educated him about this condition I discussed treatment options The patient would like to proceed with surgery The risks and benefits of operative treatment were discussed with the patient and the patient wishes to proceed with surgery. These risks include, but are not limited to risk of damage to blood vessels, nerves, tendons, infection, recurrence, incomplete relief of preoperative symptoms, persistent pain, possible need for further surgery and the risks associated with regional blocks and anesthesia. The plan is to take the patient to the operating room sometime on 06/16/23 for the following procedures: 1. Left carpal tunnel release, under general 2. Left cubital tunnel release vs transposition, under general All of the preoperative paperwork including the consent was filled out today. All the patient's questions were answered. He denies blood thinners, asthma, heart, lung, kidney issues He says he is Diabetic, is taking metformin and his most recent HgA1c was 6.2% on 02/10/23 3. Right Carpal tunnel syndrome, S/P release DOS: 04/24/23 Pre-operatively with dense numbness Now with improved but not normal sensation 4. Right Cubital tunnel syndrome, S/P release DOS: 04/24/23 Pre-operatively with dense numbness No thenar or intrinsic wasting Now with improved but not normal sensation Scribed for Missy Flores MD by Rubio Ayala, medical lab technician, on 06/04/23 at 2:00 PM, EST. Coding Level of Care Code Est Pt Level 3 (39800) Diagnoses Carpal tunnel syndrome on both sides G56.03 Cubital tunnel syndrome, bilateral G56.23 Type 2 diabetes mellitus E11.9
[2023-06-04 13:03] VITALS: BMI 29.9
== END 2023-06-04 14:02 | disposition home or self-care (01) ==
PROVIDERS: PCP Internal Medicine; Visit Provider Orthopaedic Surgery
DX: G56.03 Carpal tunnel syndrome, bilateral upper limbs (principal); G56.23 Lesion of ulnar nerve, bilateral upper limbs
CPT/HCPCS: 99214

== ENCOUNTER → 2023-06-04 12:51 | Outpatient (BNVA) | payer OTHER, SELFPAY | PROVIDERS: PCP Internal Medicine; Visit Provider Orthopaedic Surgery ==

== ENCOUNTER 2023-06-16 06:01 | Day surgery (SDC) | payer OTHER, SELFPAY ==
[2023-06-11 14:53] VITALS: BMI 40.0
--- NOTE | 2023-06-12 12:13 | HO.ANESPROP2 ---
Documented by User: Valery Mccall NP 06/12/23 12:14 HPI - Anesthesia Eval Consult details Narrative: 48yo M for Left Cubital Tunnel Release VS Transposition, Left Carpal Tunnel Release s/p right side 03/2023 with GA-LMA 5 PMFSH Active Problems Active Problems: All Active Problems (Updated 05/12/23 @ 13:02 by Kinga Salcedo PA-C) HTN (hypertension) (Acute) Male erectile dysfunction, unspecified (Acute) Right flank pain (Acute) Cervical radiculopathy (Acute) Erectile dysfunction associated with type 2 diabetes mellitus (Acute) Vitamin B12 deficiency (Acute) Carpal tunnel syndrome on both sides (Acute) Cubital tunnel syndrome, bilateral (Acute) Encounter for screening colonoscopy (Acute) Overweight (Acute) Hyperlipidemia (Acute) Hematuria (Acute) Hyperkalemia (Acute) BPH (benign prostatic hyperplasia) (Acute) Carpal tunnel syndrome (Acute) Type 2 diabetes mellitus (Acute) Annual physical exam (Acute) Past Medical History Medical History Ankle fracture, left Annual physical exam BPH (benign prostatic hyperplasia) Carpal tunnel syndrome Cervical spine degeneration Chronic foot ulcer Hematuria History of snoring Hyperkalemia Hyperlipidemia Overweight Peripheral neuropathy SVT (supraventricular tachycardia) Type 2 diabetes mellitus Family History Family History Father Lung cancer Mother No problems noted. 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 Cognitive needs: No Hearing needs: No Vision needs: No Meds Allergies Allergy/AdvReac Type Severity Reaction Status Date / Time acetaminophen [Acetaminophen] Allergy Intermediate rash from Verified 06/16/23 06:34 liquid form after prolonged use lisinopril AdvReac Intermediate Cough Verified 06/16/23 06:34 Exam Exam Date and Time: June 12, 2023 1213 Height,Weight and Vital Signs: Height 6 ft 5 in Weight 152.861 kg Pertinent Lab Results Pertinent Lab Results: Laboratory Tests 08/26/22 02/10/23 06:30 06:46 WBC 7.8 Hgb 16.2 Hct 48.1 Plt Count 299 Sodium 140 Potassium 5.2 H Chloride 107 Carbon Dioxide 25 BUN 8 L Creatinine 0.79 Assessment and Plan Assessment Anesthesia Assessment: Chart Reviewed Final Anesthetic Review Family History of Problems with Anesthesia: No History of Problems with Anesthesia: No Documented by User: Hussein Argueta MD 06/16/23 18:10 HPI - Anesthesia Eval Consult details Narrative: 48yo M for Left Cubital Tunnel Release VS Transposition, Left Carpal Tunnel Release h/o SVT s/p ablation s/p right side 03/2023 with GA-LMA 5 PMFSH Past Medical History Medical History Ankle fracture, left Annual physical exam BPH (benign prostatic hyperplasia) Carpal tunnel syndrome Cervical spine degeneration Chronic foot ulcer Hematuria History of snoring Hyperkalemia Hyperlipidemia Overweight Peripheral neuropathy SVT (supraventricular tachycardia) Type 2 diabetes mellitus Functional capacity: independent ambulation Family History Family History Father Lung cancer Mother No problems noted. 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 Cognitive needs: No Hearing needs: No Vision needs: No Meds Allergies Allergy/AdvReac Type Severity Reaction Status Date / Time acetaminophen [Acetaminophen] Allergy Intermediate rash from Verified 06/16/23 06:34 liquid form after prolonged use lisinopril AdvReac Intermediate Cough Verified 06/16/23 06:34 Exam Airway Mallampati Class: III Neck ROM: Limited Loose/Missing/Broken Teeth: Yes (poor dentition ) Assessment and Plan Assessment Anesthesia Assessment: Anesthesia Plan Discussed Final Anesthetic Review NPO: Yes ASA Class: III Final Preanesthetic Review: Meds/Allgs Chart Reviewed, Consent Obtained/Reviewed and Anes Risks/Benef Reviewed Patient Risk: Intermediate Procedure Risk: Intermediate Anesthetic Plan Anesthetic Plan: GA Disposition: Standard PACU
[2023-06-16 06:33] VITALS: BP 160/92; PULSE 86; RESP 16; TEMP 36.6; O2SAT 95
[2023-06-16] MEDS: Lactated Ringers 1,000 ML 100 ML IVCONT (06:35)
[2023-06-16 06:36] LABS: Glucose, Whole Blood 117 mg/dL (60-115)
--- NOTE | 2023-06-16 07:55 | MHC.SHP ---
Pre-Procedural Eval Section A Date of Service: 06/16/23 The patient is an INPATIENT: No Changes since office visit: No Cold of Flu in the past 2 weeks, No New Medical Problems, No Changes in Medication and No Patient answered all questions The History & Physical has been completed within 30 days and I have reviewed it.: Yes Section B Chief Complaint: Carpal tunnel syndrome,Lesion of ulnar nerve Allergies: Allergies Allergy/AdvReac Type Severity Reaction Status Date / Time acetaminophen [Acetaminophen] Allergy Intermediate rash from Verified 06/16/23 06:34 liquid form after prolonged use lisinopril AdvReac Intermediate Cough Verified 06/16/23 06:34 Plan I have reviewed the history and physical and performed a pertinent physical examination on my patient. No changes have occurred unless specified. Time Spent With Patient Time: Total time managing care of this patient today ____ minutes.
--- NOTE | 2023-06-16 08:03 | P.OP_ITS ---
Operative Note Operative Note Date of Service: 06/16/23 Narrative: Operative Note Narrative: Preop diagnosis: 1. left Cubital tunnel syndrome 2. Left carpal tunnel syndrome Postop diagnosis: Same Procedure: 1. left Cubital Tunnel Release 2. Left carpal tunnel release Surgeon: Missy Flores MD Anesthesia: General Anesthesia Findings: Thickening and fibrosis about the ulnar nerve at the cubital tunnel Implants: none Tourniquet time: 33 minutes EBL: 5.0 ml Specimen: none Drains: None Complications: None Disposition: Brought to the recovery room in stable condition Plan: Follow-up in 10-14 days for wound check, and suture removal Indications: The patient is 48 years old with left cubital tunnel syndrome and left carpal tunnel syndrome . The risks and benefits of operative treatment, including but not limited to risk of damage to blood vessels, nerves, tendons, infection, recurrence, persistent pain or numbness, incomplete resolution of preoperative symptoms, or need for further surgery were discussed with the patient and they wished to proceed with surgery. Procedure: Once consent was obtained patient was brought back to the operating suite and placed in the operating table in a supine position. Perioperative antibiotics and anesthesia was administered by the anesthesia team. The limb was prepped and draped in a standard surgical fashion, and a sterile tourniquet applied to the proximal aspect of the left upper extremity. The limb was elevated exsanguinated with Esmarch bandage and the tourniquet inflated to 250 mm of mercury for a total tourniquet time of 33 minutes. el syndrome Once assured that we had a good block, a 2.0 cm longitudinal incision was made centered over the left carpal tunnel. The incision was made through the skin to the subcutaneous tissues using a #15 blade. Dissection was made down to the level of the transverse carpal ligament with care being taken to protect the palmar cutaneous nerve. Once the transverse carpal ligament was clearly visualized, a longitudinal incision was made in the transverse carpal ligament 1st using a #15 blade, then using tenotomy scissors under direct visualization. Care was taken to look for and protect the motor branch of the median nerve when seen in this area. Once satisfied with our carpal tunnel release the wound was irrigated with normal saline. A 6 cm gently curved but longitudinally oriented incision was made centered over the cubital tunnel of the left upper extremity. Incision was made through the skin to the subcutaneous tissues using a # 15 Blade. I then dissected down to the level of the medial epicondyle and the cubital tunnel using tenotomy scissors. Care was taken to protect the lateral antebrachial cutaneous nerve. The ulnar nerve was identified just posterior to the medial intermuscular s eptum. The ulnar nerve was released in a proximal to distal direction using tenotomy in iris scissors while directly visualizing and protecting the ulnar nerve. Thickening and fibrosis was appreciated about the ulnar nerve as it passed through the cubital tunnel. The ulnar nerve was assessed as I passed the elbow through full flexion and extension and was found to remain stable within its groove. At this point the tourniquet was deflated and hemostasis obtained with a brief period of local pressure and bipolar electrocautery. The wound was copiously irrigated with normal saline. The subcutaneous layer was closed with 4-0 Vicryl suture, and the skin edges were reapproximated with 5-0 nylon suture. The wound was infiltrated with some 0.25% plain Marcaine for postop pain control and sterile dressings and a posterior splint was applied. The patient appears to have tolerated the procedure well and with no complications. All digits were well vascularized conclusion of the case.
[2023-06-16 09:45] VITALS: BP 130/81; PULSE 103; RESP 17; TEMP 36.1; O2SAT 94
[2023-06-16 09:50] VITALS: BP 129/81; PULSE 98; RESP 18; O2SAT 93
[2023-06-16 09:55] VITALS: BP 127/73; PULSE 103; RESP 18; O2SAT 93
[2023-06-16 10:00] VITALS: BP 120/60; PULSE 101; RESP 18; O2SAT 94
[2023-06-16 10:15] VITALS: BP 128/77; PULSE 91; RESP 18; O2SAT 94
== END 2023-06-16 11:12 | disposition home or self-care (01) ==
PROVIDERS: PCP Internal Medicine; Visit Provider Orthopaedic Surgery
PROC: (CPT 64718; principal; 2023-06-16 07:30)
PROC: (CPT 64721; 2023-06-16 07:30)
DX: G56.02 Carpal tunnel syndrome, left upper limb (principal); G56.22 Lesion of ulnar nerve, left upper limb; R20.0 Anesthesia of skin; E11.9 Type 2 diabetes mellitus without complications; E87.5 Hyperkalemia; E78.5 Hyperlipidemia, unspecified; F17.210 Nicotine dependence, cigarettes, uncomplicated; Z88.8 Allergy status to other drugs, medicaments and biological substances
CPT/HCPCS: 64721; 64718; 82947; J0690; J1100; J2250; J2371; J2405; J3010

== ENCOUNTER → 2023-06-16 06:01 | Outpatient (BNV) | payer OTHER, SELFPAY | PROVIDERS: PCP Internal Medicine; Visit Provider Orthopaedic Surgery | DX: G56.22 Lesion of ulnar nerve, left upper limb (principal); G56.02 Carpal tunnel syndrome, left upper limb | CPT/HCPCS: 64718; 64721 ==

== ENCOUNTER 2023-06-19 07:31 | Outpatient (AMB) | payer OTHER, SELFPAY ==
[2023-06-19 07:35] VITALS: BP 122/76; PULSE 75; O2SAT 97; BMI 40.3
--- NOTE | 2023-06-19 07:35 | MHC.PC.OV ---
Vital Signs 06/19/23 07:35 Height 6 ft 5 in Weight 340 lb BMI 40.3 BP 122/76 Blood Pressure Location Rt brachial Position Sitting Pulse 75 Pulse Source Pulse Oximeter Pulse Oximetry (%) 97 Oxygen Delivery Method Room Air Intake Visit Reasons: 4 month follow up DM Intake Note: Pt is here today for 4 months follow up visit. Allergies acetaminophen [Acetaminophen] Allergy (Intermediate, Verified 06/19/23 07:38) rash from liquid form after prolonged use lisinopril Adverse Reaction (Intermediate, Verified 06/19/23 07:38) Cough Medication List - Last Reconciled 06/19/23 by Leonarda Gandhi MD atorvastatin 20 mg PO DAILY bisacodyl (Dulcolax (bisacodyl)) 20 mg (4 x 5 mg) PO ONCE 1 day cyanocobalamin (vitamin B-12) 1,000 mcg PO DAILY metformin 1,000 mg PO BID olmesartan 20 mg PO DAILY oxycodone-acetaminophen 5-325 mg 1 tab PO Q6H PRN polyethylene glycol 3350 (Miralax) 238 grams PO ONCE PRN 1 day tadalafil 10 mg PO DAILY 90 days tamsulosin 0.4 mg PO BEDTIME Tobacco use date assessed: 06/19/23 Dental Screening Dental Screen Date: 06/19/23 Did you have a dental visit in the last 12 months?: No Did you have a dental problem in the last 6 months where you did not have access to dental care?: No Was dental information given to patient?: Patient declined HPI 4 month follow up DM HPI Details Patient presents for the follow-up of hypertension hyperlipidemia type 2 diabetes. Patient had left elbow and wrist surgery 4 days ago and is recovering. FOR[facility]LY [facility] Medical History Ankle fracture, left Annual physical exam BPH (benign prostatic hyperplasia) Carpal tunnel syndrome Cervical spine degeneration Chronic foot ulcer Hematuria History of snoring Hyperkalemia Hyperlipidemia Overweight Peripheral neuropathy SVT (supraventricular tachycardia) Type 2 diabetes mellitus Surgical History H/O cardiac radiofrequency ablation H/O foot surgery History of carpal tunnel surgery of right wrist [place] teeth extracted Family History Father Lung cancer Mother No problems noted. 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 How often do you have a drink containing alcohol?: Monthly or less 2. How many drinks containing alcohol do you have on a typical day when you are drinking?: 1 or 2 3. How often do you have six or more drinks on one occasion?: Less than monthly Total Score: 2 HAIDER-7 AMB Questionnaire HAIDER-7 Date HAIDER - 7 assessed: 02/17/23 Feeling nervous, anxious, or on edge: 0 = Not at all Not being able to stop or control worryin = Not at all Worrying too much about different things: 0 = Not at all Trouble relaxin = Not at all Being so restless that it is hard to sit still: 0 = Not at all Becoming easily annoyed or irritable: 0 = Not at all Feeling afraid as if something awful might happen: 0 = Not at all Total HAIDER-7 score (0-4 normal; 5-9 mild; 10-14 moderate; 15-21 severe): 0 Source: Developed by Drs. Woody Rocha, Franny Pruitt, Luis Christianson and colleagues, with an educational cathleen from [employer]. Review of Systems Const All systems reviewed & are unremarkable except as noted in HPI and below Reports no additional complaints ENT Reports no additional complaints Card Reports no additional complaints Resp Reports no additional complaints GI Reports no additional complaints Physical exam (Primary Care) Vital Signs: Last Vital Signs Pulse 75 06/19/23 07:35 BP 122/76 06/19/23 07:35 Pulse Ox 97 06/19/23 07:35 Oxygen Delivery Method Room Air 06/19/23 07:35 BMI result Body Mass Index 40.3 Tobacco/Smoking Status: Tobacco use Status Tobacco use date assessed 06/19/23 06/19/23 07:41 Patient Tobacco Use Status Current everyday Tobacco 06/19/23 07:36 Tobacco use type Cigarette 06/19/23 07:36 e-Cigarette/Vaping Use Never Used 06/19/23 07:36 Thrive Assessment: Date of Thrive Assessment Date Thrive assessed 02/17/23 06/19/23 07:36 Const General: no acute distress HENMT Head: Yes normal to inspection Ears: hearing grossly normal bilaterally General nose exam: Normal external nose present Neck Neck: Yes supple Resp Effort & Inspection: normal respiratory effort Auscultation: clear to auscultation bilaterally Cardio Rhythm: regular rhythm Heart sounds: S1 normal heart sound present and S2 normal heart sound present Assessment and Plan Assessment & Plan (1) Type 2 diabetes mellitus: Code(s): E11.9 - Type 2 diabetes mellitus without complications Plan: Patient have a labs today including A1c. ADA diet increase exercise weight loss discussed with the patient. If A1c is more than 6 Ozempic will be added. (2) Annual physical exam: Code(s): Z00.00 - Encounter for general adult medical examination without abnormal findings (3) Hyperlipidemia: Code(s): E78.5 - Hyperlipidemia, unspecified Plan: Continue statin (4) HTN (hypertension): Code(s): I10 - Essential (primary) hypertension Plan: Continue olmesartan, follow-up in 4 months with a fasting labs before Orders: Orders Comprehensive [place]. Panel Fast 4 Months E11.9 - Type 2 diabetes mellitus without complications, E78.5 - Hyperlipidemia, unspecified, I10 - Essential (primary) hypertension Hemoglobin A1c 4 Months E11.9 - Type 2 diabetes mellitus without complications, E78.5 - Hyperlipidemia, unspecified, I10 - Essential (primary) hypertension Microalbumin, Random (w Creat) 4 Months E11.9 - Type 2 diabetes mellitus without complications, E78.5 - Hyperlipidemia, unspecified, I10 - Essential (primary) hypertension Complete Blood Count Auto Diff 4 Months E11.9 - Type 2 diabetes mellitus without complications, E78.5 - Hyperlipidemia, unspecified, I10 - Essential (primary) hypertension Referrals Podiatry Referral E11.9 - Type 2 diabetes mellitus without complications, E78.5 - Hyperlipidemia, unspecified, Z00.00 - Encounter for general adult medical examination without abnormal findings Coding Level of Care Code Est Pt Level 4 (46396) Diagnoses Type 2 diabetes mellitus E11.9 Annual physical exam Z00.00 Hyperlipidemia E78.5 HTN (hypertension) I10
== END 2023-06-19 08:15 | disposition home or self-care (01) ==
PROVIDERS: PCP Internal Medicine; Visit Provider Internal Medicine
DX: E11.9 Type 2 diabetes mellitus without complications (principal); Z00.00 Encounter for general adult medical examination without abnormal findings; E78.5 Hyperlipidemia, unspecified; I10 Essential (primary) hypertension
CPT/HCPCS: 99214

== ENCOUNTER 2023-06-19 08:07 | Outpatient (REF) | payer OTHER, SELFPAY ==
[2023-06-19 11:25] LABS: MANUAL DIFF FLAG NO
[2023-06-19 11:46] LABS: Basophils Absolute Auto 0.1 X10*3/uL (0.0-0.2); Basophils Percent Auto 0.7 % (0-2); Eosinophils Absolute Auto 0.4 X10*3/uL (0.0-0.4); Eosinophils Percent Auto 4.3 % (0-4); Hematocrit 47.7 % (42.0-52.0); Hemoglobin 16.3 g/dl (14.0-18.0); Imm Gran Abs Auto 0.04 X10*3/uL (0.00-0.03); Imm Gran Pct Auto 0.4 % (0.0-0.4); Lymphocytes Absolute Auto 2.4 X10*3/uL (1.2-4.9); Lymphocytes Percent Auto 27.2 % (20-40); Mean Corpuscular HGB Conc 34.2 g/dl (31.0-36.0); Mean Corpuscular Hemoglobin 29.9 pg (27.0-33.0); Mean Corpuscular Volume 87.5 fL (80.0-98.0); Mean Platelet Volume 9.2 fL (9.4-12.4); Monocytes Absolute Auto 0.6 X10*3/uL (0.1-1.2); Monocytes Percent Auto 6.7 % (2-11); Neutrophils Absolute Auto 5.4 x10*3/uL (2.0-8.3); Neutrophils Percent Auto 60.7 % (45-73); Platelet Count 311 X10*3/uL (160-400); Red Blood Count 5.45 X10*6/uL (4.60-5.80); Red Cell Distribution Width 13.5 % (11.0-16.0)
[2023-06-19 12:00] LABS: Alanine Aminotransferase 35 U/L (0-40); Albumin Level 4.2 g/dL (3.5-5.0); Alkaline Phosphatase 69 U/L (39-117); Anion Gap 11 (12-20); Aspartate Amino Transferase 20 U/L (5-37); Bilirubin Total 0.4 mg/dL (0.0-1.0); Blood Urea Nitrogen 11 mg/dL (9-16); Calcium 9.6 mg/dL (8.4-10.2); Carbon Dioxide 27 mmol/L (22-29); Chloride 105 mmol/L (96-108); Cholesterol 141 mg/dL (<200); Estimated Average Glucose 114 mg/dL; Estimated Glomerular Filt Rate > 60; Glucose Fasting 107 mg/dL (60-99); Glucose Random 107 mg/dL (60-115); HDL Cholesterol 41 mg/dL (>40); Hemoglobin A1c % 5.6 % (<6.0); LDL Cholesterol Calculated 72 mg/dL (<100); Potassium 4.5 mmol/L (3.3-5.1); Sodium 138 mmol/L (135-145); Total Protein 7.2 g/dL (6.5-8.0); Triglycerides 143 mg/dL (<150)
[2023-06-19 13:09] LABS: Creatinine Urine 81.21 mg/dL; Microalbumin Urine < 5.0 mg/L
== END 2023-06-19 08:08 | disposition home or self-care (01) ==
LOC: HO.HMGCLDS 08:07
PROVIDERS: PCP Internal Medicine; Visit Provider Internal Medicine
DX: E11.9 Type 2 diabetes mellitus without complications (principal); I10 Essential (primary) hypertension; E66.3 Overweight
CPT/HCPCS: 36415; 80048; 80053; 80061; 82043; 83036; 85025

== ENCOUNTER 2023-07-01 09:18 | Outpatient (AMB) | payer OTHER, SELFPAY ==
--- NOTE | 2023-07-01 09:34 | A.OFFVIS_ITS ---
Intake Vital Signs 07/01/23 09:35 Height 6 ft 5 in Weight 340 lb BMI 40.3 Intake Visit Reasons: PO LT Cubital TR vs. trans, DIRECTOR OF OUTPATIENT SERVICES 06/16/23AR Intake Note: Woody 48 yr old male presents today for his P/O left hand cubital tunnel release from 06/16/[address] Flores. States he cont's to have numbness in his index finger. Sutures removed and steri strips applied. Allergies acetaminophen [Acetaminophen] Allergy (Intermediate, Verified 07/01/23 09:44) rash from liquid form after prolonged use lisinopril Adverse Reaction (Intermediate, Verified 07/01/23 09:44) Cough HPI PO LT Cubital TR vs. trans, DIRECTOR OF OUTPATIENT SERVICES 06/16/23AR HPI Details Woody is a 48 year old right hand dominant man who presents S/P left carpal & cubital tunnel release, DOS 06/16/23. He is S/P right carpal & cubital tunnel release, DOS: 04/24/23. In regards to his left hand he says his sensation has started to improve in his thumb, middle, ring, and small finger. He still has numbness in his index finger, unchanged from prior. In regards to his right hand he says his sensation has improved more since his last appointment. He says he now has normal sensation in his thumb, middle, ring, and small fingers. He continues to have numbness to the tip of his index finger. He reports having dense numbness in his feet and had questions about Tarsal tunnel vs neuropathy. 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 He has been shooting since surgery on his right hand, but before the surgery on his left hand, and says this went well. He says he is out of work until 07/27/23, and will need clearance to return to work. [facility]LY [facility] Medical History Ankle fracture, left Annual physical exam BPH (benign prostatic hyperplasia) Carpal tunnel syndrome Cervical spine degeneration Chronic foot ulcer Hematuria History of snoring Hyperkalemia Hyperlipidemia Overweight Peripheral neuropathy SVT (supraventricular tachycardia) Type 2 diabetes mellitus Surgical History H/O cardiac radiofrequency ablation H/O foot surgery History of carpal tunnel surgery of right wrist [place] teeth extracted Family History Father Lung cancer Mother No problems noted. 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 Sutures removed and Steri-Strips applied He can make a fist and extend all his digits He has normal sensation to the thumb, and improved but not yet normal sensation to the middle, ring, and small fingers of the left hand. He continues to have numbness to the tip of the index finger Sensation is improved compared to last appointment and now feels normal in the thumb, middle, ring and small fingers, but still with dense numbness to the tips of the index finger of the right hand Cap refill is brisk Nerve Conduction Study: IMPRESSION:? This study revealed [id number] bilateral median neuropathy across carpal tunnel, mild ulnar neuropathy across cubital tunnel, and underlying demyelinating and axonal sensorimotor peripheral neuropathy. ? Adria Donahue MD 01/24/2022 Psych Appearance: grossly normal Affect: normal affect Attitude: cooperative Assessment & Plan Assessment & Plan (1) Carpal tunnel syndrome on both sides: Code(s): G56.03 - Carpal tunnel syndrome, bilateral upper limbs (2) Cubital tunnel syndrome, bilateral: Code(s): G56.23 - Lesion of ulnar nerve, bilateral upper limbs (3) Type 2 diabetes mellitus: Code(s): E11.9 - Type 2 diabetes mellitus without complications Plan Assessment & Plan: 1. Left Carpal tunnel syndrome, S/P release Pre-operatively with dense numbness 2. Left Cubital tunnel syndrome, S/P release Pre-operatively with dense numbness He now has normal sensation to the thumb, and improved sensation to the middle, ring, and small fingers He still has dense numbness to the index finger The patient appears to be doing well post-operatively I educated him about the post-operative course I discussed activity modifications, he is to lift nothing heavier than a cellphone for the next two weeks He will perform gentle ROM exercises at home He should avoid any underwater activities for the next 5 days He should gently massage about the incision site to reduce the risk of hypersensitivity 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 He has already been to a firing range and was able to use a firearm with his right, dominant, hand. However he is not able to perform all functions with his left hand at this time. He will follow up in 3 weeks to discuss his RTW status, this can be with me or a PA. 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 Right Carpal tunnel syndrome, S/P release DOS: 04/24/23 Pre-operatively with dense numbness 4. Right Cubital tunnel syndrome, S/P release DOS: 04/24/23 Pre-operatively with dense numbness He now has normal sensation to his thumb, middle, ring, and small fingers He continues to have numbness to the tip of the index finger Scribed for Missy Flores MD by Rubio Ayala, medical laboratory technologist, on 07/01/23 at 10:00 AM, EST. Coding Level of Care Code Global (78222) Diagnoses Carpal tunnel syndrome on both sides G56.03 Cubital tunnel syndrome, bilateral G56.23 Type 2 diabetes mellitus E11.9
[2023-07-01 09:35] VITALS: BMI 40.3
== END 2023-07-01 10:08 | disposition home or self-care (01) ==
PROVIDERS: PCP Internal Medicine; Visit Provider Orthopaedic Surgery
DX: G56.03 Carpal tunnel syndrome, bilateral upper limbs (principal); G56.23 Lesion of ulnar nerve, bilateral upper limbs; E11.9 Type 2 diabetes mellitus without complications
CPT/HCPCS: 99024

== ENCOUNTER → 2023-07-01 09:18 | Outpatient (BNVA) | payer OTHER, SELFPAY | PROVIDERS: PCP Internal Medicine; Visit Provider Orthopaedic Surgery ==

== ENCOUNTER 2023-07-22 11:18 | Outpatient (AMB) | payer OTHER, SELFPAY ==
--- NOTE | 2023-07-22 11:24 | MHC.OFFVIS ---
Intake Vital Signs 07/22/23 11:27 Height 6 ft 5 in Weight 340 lb BMI 40.3 Handedness Right Intake Visit Reasons: PO LT Cubital TR vs. 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 Flores. Patient reports still having pain. He states that he was playing tug a war with his dog and he thinks it made it worse. Patient informs me that his sensation is coming back and feeling better than before. Allergies acetaminophen [Acetaminophen] Allergy (Intermediate, Verified 07/22/23 11:24) rash from liquid form after prolonged use lisinopril Adverse Reaction (Intermediate, Verified 07/22/23 11:24) Cough HPI PO LT Cubital TR vs. 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 Flores. The patient reports no pain while in the office today. He confirms he was playing tug of war with his dog which he feel caused him some increased pain. He states he had dense numbness along the radial and ulnar digital nerve in the index finger at the last appointment, which has since resolved. However, he reports numbness in the tips of all his digits. He claims when he bends or straighten his arm he feels something ?slip off? in the left elbow. He states he feels he is 100% with his right hand and can make a full fist. He works for [email or web address] and states he might have to ?grapple? with someone. [facility], LATER [facility] Medical History History of snoring Hematuria Hyperkalemia BPH (benign prostatic hyperplasia) Carpal tunnel syndrome Annual physical exam Type 2 diabetes mellitus Cervical spine degeneration Hyperlipidemia Overweight Ankle fracture, left SVT (supraventricular tachycardia) Peripheral neuropathy Chronic foot ulcer Surgical History History of carpal tunnel surgery of right wrist H/O cardiac radiofrequency ablation H/O foot surgery [place] teeth extracted Family History Father Lung cancer Mother No problems noted. 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 No signs of infection. Full ROM. Left hand: Carpal tunnel incision sites is clean, dry, and intact. Able to perform full finger flexion, extension, abduction, adduction, finger cross, okay sign, and thumbs up without deficit. Able to make a closed fist. He reports dense numbness along the radial and ulnar digital nerve in the index finger at the last appointment, which has since resolved. However, he reports numbness in the tips of all his digits. Capillary refill is brisk. Radial pulse intact. Assessment & Plan Assessment & Plan (1) Carpal tunnel syndrome on both sides: Code(s): G56.03 - Carpal tunnel syndrome, bilateral upper limbs (2) Cubital tunnel syndrome, bilateral: Code(s): G56.23 - Lesion of ulnar nerve, bilateral upper limbs (3) Type 2 diabetes mellitus: Code(s): E11.9 - Type 2 diabetes mellitus without complications Plan Mr. Davila is a 48-year-old right hand dominant male who presents in the office today 1 month status post left cubital tunnel and left carpal tunnel release, which was performed on 06/16/[address] Flores. The patient reports no pain while in the office today. He confirms he was playing tug of war with his dog which he feel caused him some increased pain. He states he had dense numbness along the radial and ulnar digital nerve in the index finger at the last appointment, which has since resolved. However, he reports numbness in the tips of all his digits. He claims when he bends or straighten his arm he feels something ?slip off? in the left elbow. He states he feels he is 100% with his right hand and can make a full fist. He works for [email or web address] and states he might have to ?grapple? with someone. The patient will be referred for occupational therapy to work on ROM and strengthening of the left upper extremity. He would like a note stating he will remain out of work until follow up. He stated he might send [facility] paperwork to the office through the portal. Follow up will be in 4-6 weeks, or sooner if needed. Orders: Orders OT Evaluation and Treatment Today G56.03 - Carpal tunnel syndrome, bilateral upper limbs, G56.23 - Lesion of ulnar nerve, bilateral upper limbs Patient Instructions: Scribed for Dionne Cortes PA-C by Jenn Rollins medical referral coordinator, on 07/22/2023 at 11:21 am, EST. Coding Level of Care Code Global (13993) Diagnoses Carpal tunnel syndrome on both sides G56.03 Cubital tunnel syndrome, bilateral G56.23 Type 2 diabetes mellitus E11.9
[2023-07-22 11:27] VITALS: BMI 40.3
== END 2023-07-22 11:42 | disposition home or self-care (01) ==
PROVIDERS: PCP Internal Medicine; Visit Provider Physician Assistant
DX: G56.03 Carpal tunnel syndrome, bilateral upper limbs (principal); G56.23 Lesion of ulnar nerve, bilateral upper limbs; E11.9 Type 2 diabetes mellitus without complications
CPT/HCPCS: 99024

== ENCOUNTER → 2023-07-22 11:18 | Outpatient (BNVA) | payer OTHER, SELFPAY | PROVIDERS: PCP Internal Medicine; Visit Provider Physician Assistant ==

== ENCOUNTER 2023-08-12 08:30 | Outpatient (RCR) | payer OTHER, SELFPAY ==
--- NOTE | 2023-07-30 10:40 | MHC.OT.EP ---
[address] [phone] Occupational Therapy Plan of Care Patient Name: Woody Davila Date of Evaluation: 07/30/23 Diagnosis: Left cubital tunnel transposition and carpal tunnel release Pain Location: Pain bilateral elbows 0/10 Primary c/o is numbness in fingertips Pain Score: 0 Pain Scale Used: Numeric (0 - 10) Aggravating Factors: Full elbow extension, feels as though the tendon is slipping on the bone Alleviating Factors: Stretching, ice Assessment: Pt is a 48 y/o male referred to OT following left ulnar nerve transposition and carpal tunnel release by Dr. Flores on 06/16/23. Pt reports decreased supervisor rides and digit strength is his primary concern, as well as decreased sensation in all fingertips. 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 Pt denies pain. Demonstrated understanding of scar massage and ulnar nerve glides this visit. Woody would benefit from short term skilled OT to address noted barriers and assist in return to full duty at work. 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 Thank you once again for your referral.
--- NOTE | 2023-08-12 09:15 | MHC.OT.DC ---
[address] [phone] F: [phone] Occupational Therapy Discharge Note Patient Name: Woody Davila Provider: Dionne Cortes Diagnosis: Left cubital tunnel transposition and carpal tunnel release Date of Surgery: 06/16/23 Date of Evaluation: 07/30/23 Date of Discharge: 08/12/23 Treatments to Date: 3 Discharge Status: Achieved Goals Improved Function Independent with HEP Discharge Summary: Woody is approx 8 weeks s/p L cubital tunnel transposition and CTR. He is pain free with ADL's/IADL's and demonstrates IND with progression of HEP and scar management. Gross grasp strength improved on the left from 50# to 92#. No limitations in elbow or wrist ROM. At this time, pt. has met all goals set on admission and is in agreement with d/c. Electronically Signed By: Lizy Portillo, OTR/L Reviewed/agree with student documentation: Therapist: Please Sign and return to therapist, thank you for your referral.
== END 2023-08-12 09:16 | disposition home or self-care (01) ==
LOC: HO.OT 08:30
PROVIDERS: PCP Internal Medicine; Visit Provider Physician Assistant
DX: G56.03 Carpal tunnel syndrome, bilateral upper limbs (principal); G56.23 Lesion of ulnar nerve, bilateral upper limbs
CPT/HCPCS: 97110; 97140; 97165

== ENCOUNTER 2023-08-19 13:02 | Outpatient (AMB) | payer OTHER, SELFPAY ==
[2023-08-19 13:07] VITALS: BMI 40.3
--- NOTE | 2023-08-19 13:07 | A.OFFVIS_ITS ---
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 Flores. Patient reports he is doing great. He states that he finished his sessions with OT and that he exceeded his goals. Allergies acetaminophen [Acetaminophen] Allergy (Intermediate, Verified 08/19/23 13:07) rash from liquid form after prolonged use lisinopril Adverse Reaction (Intermediate, Verified 08/19/23 13:07) Cough HPI PO LT Cubital TR vs. 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 Flores. The patient reports he is doing great. He confirms completion of occupational therapy and states he has exceeded his goals. [facility] Medical History History of snoring Hematuria Hyperkalemia BPH (benign prostatic hyperplasia) Carpal tunnel syndrome Annual physical exam Type 2 diabetes mellitus Cervical spine degeneration Hyperlipidemia Overweight Ankle fracture, left SVT (supraventricular tachycardia) Peripheral neuropathy Chronic foot ulcer Surgical History History of carpal tunnel surgery of right wrist H/O cardiac radiofrequency ablation H/O foot surgery [place] teeth extracted Family History Father Lung cancer Mother No problems noted. 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 No signs of infection. Full ROM. Left hand: Carpal tunnel incision sites is clean, dry, and intact. Able to perform full finger flexion, extension, abduction, adduction, finger cross, okay sign, and thumbs up without deficit. Able to make a closed fist. He reports dense numbness along the radial and ulnar digital nerve in the index finger at the last appointment, which has since resolved. He reports mild numbness and tingling in the index and middle fingers. Capillary refill is brisk. Radial pulse intact. Assessment & Plan Assessment & Plan (1) Carpal tunnel syndrome on both sides: Code(s): G56.03 - Carpal tunnel syndrome, bilateral upper limbs (2) Cubital tunnel syndrome, bilateral: Code(s): G56.23 - Lesion of ulnar nerve, bilateral upper limbs (3) Type 2 diabetes mellitus: Code(s): E11.9 - Type 2 diabetes mellitus without complications Plan Mr. Davila is a 48-year-old right hand dominant male who presents in the office today 2 month status post left cubital tunnel and left carpal tunnel release, which was performed on 06/16/[address] Flores. The patient reports he is doing great. He confirms completion of occupational therapy and states he has exceeded his goals. 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 He was given a note excusing him from push ups and sit-ups for his fitness test. He is able run for his fitness test. Follow up will be PRN, or sooner if needed. Patient Instructions: Scribed for Dionne Cortes PA-C by Jenn Rollins medical equipment repair technician, on 08/19/2023 at 1:10 pm, EST. Coding Level of Care Code Global (57249) Diagnoses Carpal tunnel syndrome on both sides G56.03 Cubital tunnel syndrome, bilateral G56.23 Type 2 diabetes mellitus E11.9
== END 2023-08-19 13:22 | disposition home or self-care (01) ==
PROVIDERS: PCP Internal Medicine; Visit Provider Physician Assistant
DX: G56.03 Carpal tunnel syndrome, bilateral upper limbs (principal); G56.23 Lesion of ulnar nerve, bilateral upper limbs; E11.9 Type 2 diabetes mellitus without complications
CPT/HCPCS: 99024

== ENCOUNTER → 2023-08-19 13:02 | Outpatient (BNVA) | payer OTHER, SELFPAY | PROVIDERS: PCP Internal Medicine; Visit Provider Physician Assistant ==

== ENCOUNTER 2023-10-11 06:32 | Outpatient (REF) | payer OTHER, SELFPAY ==
[2023-10-11 11:01] LABS: MANUAL DIFF FLAG NO
[2023-10-11 11:03] LABS: Basophils Percent Auto 0.5 % (0-2); Eosinophils Absolute Auto 0.2 X10*3/uL (0.0-0.4); Eosinophils Percent Auto 2.7 % (0-4); Hematocrit 47.9 % (42.0-52.0); Hemoglobin 16.5 g/dl (14.0-18.0); Imm Gran Abs Auto 0.03 X10*3/uL (0.00-0.03); Imm Gran Pct Auto 0.4 % (0.0-0.4); Lymphocytes Absolute Auto 1.9 X10*3/uL (1.2-4.9); Lymphocytes Percent Auto 23.4 % (20-40); Mean Corpuscular HGB Conc 34.4 g/dl (31.0-36.0); Mean Corpuscular Hemoglobin 30.2 pg (27.0-33.0); Mean Corpuscular Volume 87.6 fL (80.0-98.0); Mean Platelet Volume 9.4 fL (9.4-12.4); Monocytes Absolute Auto 0.7 X10*3/uL (0.1-1.2); Monocytes Percent Auto 8.2 % (2-11); Neutrophils Absolute Auto 5.1 x10*3/uL (2.0-8.3); Neutrophils Percent Auto 64.8 % (45-73); Platelet Count 300 X10*3/uL (160-400); Red Blood Count 5.47 X10*6/uL (4.60-5.80); Red Cell Distribution Width 13.3 % (11.0-16.0); White Blood Count 7.9 X10*3/uL (4.8-10.8)
[2023-10-11 11:16] LABS: Estimated Average Glucose 114 mg/dL; Hemoglobin A1c % 5.6 % (<6.0)
[2023-10-11 11:19] LABS: Alanine Aminotransferase 23 U/L (0-40); Albumin Level 4.1 g/dL (3.5-5.0); Alkaline Phosphatase 81 U/L (39-117); Anion Gap 16 (12-20); Aspartate Amino Transferase 20 U/L (5-37); Bilirubin Total 0.4 mg/dL (0.0-1.0); Blood Urea Nitrogen 9 mg/dL (9-16); Calcium 9.3 mg/dL (8.4-10.2); Carbon Dioxide 23 mmol/L (22-29); Chloride 105 mmol/L (96-108); Estimated Glomerular Filt Rate > 60; Glucose Fasting 116 mg/dL (60-99); Potassium 4.7 mmol/L (3.3-5.1); Sodium 139 mmol/L (135-145); Total Protein 7.2 g/dL (6.5-8.0)
[2023-10-11 12:13] LABS: Creatinine Urine 30.75 mg/dL; Microalbumin Urine < 5.0 mg/L
== END 2023-10-11 06:33 | disposition home or self-care (01) ==
LOC: HO.HMGCLDS 06:32
PROVIDERS: PCP Internal Medicine; Visit Provider Internal Medicine
DX: I10 Essential (primary) hypertension (principal); E78.5 Hyperlipidemia, unspecified; E11.9 Type 2 diabetes mellitus without complications
CPT/HCPCS: 36415; 80053; 82043; 82570; 83036; 85025

== ENCOUNTER 2023-10-13 12:22 | Outpatient (AMB) | payer OTHER, SELFPAY ==
--- NOTE | 2023-10-13 12:23 | MHC.PC.OV ---
Vital Signs 10/13/23 12:25 Height 6 ft 5 in Weight 334 lb BMI 39.6 BP 118/64 Blood Pressure Location Rt brachial Position Sitting Pulse 99 Pulse Source Pulse Oximeter Pulse Oximetry (%) 97 Oxygen Delivery Method Room Air Intake Visit Reasons: 4 month fu Allergies acetaminophen [Acetaminophen] Allergy (Intermediate, Verified 10/13/23 12:25) rash from liquid form after prolonged use lisinopril Adverse Reaction (Intermediate, Verified 10/13/23 12:25) Cough Tobacco use date assessed: 06/19/23 HPI 4 month fu HPI Details Patient presents for the follow-up of hypertension hyperlipidemia type 2 diabetes controlled on current medications. [facility] Medical History History of snoring Hematuria Hyperkalemia BPH (benign prostatic hyperplasia) Carpal tunnel syndrome Annual physical exam Type 2 diabetes mellitus Cervical spine degeneration Hyperlipidemia Overweight Ankle fracture, left SVT (supraventricular tachycardia) Peripheral neuropathy Chronic foot ulcer Surgical History History of carpal tunnel surgery of right wrist H/O cardiac radiofrequency ablation H/O foot surgery [place] teeth extracted Family History Father Lung cancer Mother No problems noted. 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 Woody Rocha, Franny Pruitt, Luis Christianson and colleagues, with an educational cathleen from [employer]. Review of Systems Const All systems reviewed & are unremarkable except as noted in HPI and below Reports no additional complaints Eyes Reports no additional complaints ENT Reports no additional complaints Card Reports no additional complaints Resp Reports no additional complaints GI Reports no additional complaints Physical exam (Primary Care) Vital Signs: Last Vital Signs Pulse 99 10/13/23 12:25 BP 118/64 10/13/23 12:25 Pulse Ox 97 10/13/23 12:25 Oxygen Delivery Method Room Air 10/13/23 12:25 BMI result Body Mass Index 39.6 Tobacco/Smoking Status: Tobacco use Status Tobacco use date assessed 06/19/23 10/13/23 12:24 Patient Tobacco Use Status Current everyday Tobacco 10/13/23 12:24 Tobacco use type Cigarette 10/13/23 12:24 e-Cigarette/Vaping Use Never Used 10/13/23 12:24 Thrive Assessment: Date of Thrive Assessment Date Thrive assessed 02/17/23 10/13/23 12:24 Const General: no acute distress HENMT Head: Yes normal to inspection Eyes General: appearance normal, both eyes and all related structures Resp Effort & Inspection: normal respiratory effort Auscultation: clear to auscultation bilaterally Cardio Rhythm: regular rhythm Heart sounds: S1 normal heart sound present and S2 normal heart sound present GI Inspection: Yes normal to inspection Palpation (GI): Soft to palpation Percussion: Yes normal to percussion Assessment and Plan Assessment & Plan (1) HTN (hypertension): Code(s): I10 - Essential (primary) hypertension Plan: Continue olmesartan (2) Hyperlipidemia: Code(s): E78.5 - Hyperlipidemia, unspecified Plan: Continue statin (3) Type 2 diabetes mellitus: Code(s): E11.9 - Type 2 diabetes mellitus without complications Plan: A1c is 5.6 continue ADA diet regular exercise weight loss discussed with the patient, he will continue metformin Orders: Orders Comprehensive [place]. Panel Fast 4 Months E11.9 - Type 2 diabetes mellitus without complications, E78.5 - Hyperlipidemia, unspecified, I10 - Essential (primary) hypertension Hemoglobin A1c 4 Months E11.9 - Type 2 diabetes mellitus without complications, E78.5 - Hyperlipidemia, unspecified, I10 - Essential (primary) hypertension Lipid Panel 4 Months E11.9 - Type 2 diabetes mellitus without complications, E78.5 - Hyperlipidemia, unspecified, I10 - Essential (primary) hypertension Complete Blood Count Auto Diff 4 Months E11.9 - Type 2 diabetes mellitus without complications, E78.5 - Hyperlipidemia, unspecified, I10 - Essential (primary) hypertension Vitamin B12 and Folate 4 Months E11.9 - Type 2 diabetes mellitus without complications, E78.5 - Hyperlipidemia, unspecified, I10 - Essential (primary) hypertension Microalbumin, Random (w Creat) 4 Months E11.9 - Type 2 diabetes mellitus without complications, E78.5 - Hyperlipidemia, unspecified, I10 - Essential (primary) hypertension Coding Level of Care Code Est Pt Level 4 (42908) Diagnoses HTN (hypertension) I10 Hyperlipidemia E78.5 Type 2 diabetes mellitus E11.9
[2023-10-13 12:25] VITALS: BP 118/64; PULSE 99; O2SAT 97; BMI 39.6
== END 2023-10-13 13:35 | disposition home or self-care (01) ==
PROVIDERS: PCP Internal Medicine; Visit Provider Internal Medicine
DX: I10 Essential (primary) hypertension (principal); E78.5 Hyperlipidemia, unspecified; E11.9 Type 2 diabetes mellitus without complications
CPT/HCPCS: 99214

== ENCOUNTER 2023-11-10 06:52 | Day surgery (SDC) | payer OTHER, SELFPAY ==
[2023-11-06 07:40] VITALS: BMI 39.6
--- NOTE | 2023-11-07 09:28 | HO.ANESPROP2 ---
Documented by User: Valery Mccall NP 11/07/23 09:42 HPI - Anesthesia Eval Consult details Narrative: 48yo M for Colonoscopy s/p carpal tunnel 05/2023 with [facility] PMFSH Active Problems Active Problems: All Active Problems (Updated 05/12/23 @ 13:02 by Kinga Salcedo PA-C) Encounter for screening colonoscopy (Acute) Cubital tunnel syndrome, bilateral (Acute) Carpal tunnel syndrome on both sides (Acute) Vitamin B12 deficiency (Acute) Erectile dysfunction associated with type 2 diabetes mellitus (Acute) Cervical radiculopathy (Acute) Right flank pain (Acute) Male erectile dysfunction, unspecified (Acute) HTN (hypertension) (Acute) Overweight (Acute) Hyperlipidemia (Acute) Hematuria (Acute) Hyperkalemia (Acute) BPH (benign prostatic hyperplasia) (Acute) Carpal tunnel syndrome (Acute) Type 2 diabetes mellitus (Acute) Annual physical exam (Acute) Past Medical History Medical History History of snoring Hematuria Hyperkalemia BPH (benign prostatic hyperplasia) Carpal tunnel syndrome Annual physical exam Type 2 diabetes mellitus Cervical spine degeneration Hyperlipidemia Overweight Ankle fracture, left SVT (supraventricular tachycardia) Peripheral neuropathy Chronic foot ulcer Family History Family History Father Lung cancer Mother No problems noted. Sister Substance use disorder Sister Substance use disorder Family history of problems with anesthesia: No Surgical History Surgical History History of carpal tunnel surgery of right wrist H/O cardiac radiofrequency ablation H/O foot surgery [place] teeth extracted History of Problems with Anesthesia: No Social History Social History Housing: House Patient Tobacco Use Status: Current everyday Tobacco user Tobacco use type: Cigarette Cigarettes Per Day: 15 Years Smoked: 32 e-Cigarette/Vaping Use: Never Used Use of substances other than those prescribed or required for medical reasons: No Are you DNR?: No Advance Directives: No Advance Directives Information Provided: Yes Current occupational status: employed 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 needs: No Hearing needs: No Vision needs: No Meds Allergies Allergy/AdvReac Type Severity Reaction Status Date / Time acetaminophen [Acetaminophen] Allergy Intermediate rash from Verified 11/10/23 07:05 liquid form after prolonged use lisinopril AdvReac Intermediate Cough Verified 11/10/23 07:05 Exam Height,Weight and Vital Signs: Height 6 ft 5 in Weight 151.5 kg Pertinent Lab Results Pertinent Lab Results: Laboratory Tests 10/11/23 06:43 WBC 7.9 Hgb 16.5 Hct 47.9 Plt Count 300 Sodium 139 Potassium 4.7 Chloride 105 Carbon Dioxide 23 BUN 9 Creatinine 0.77 Assessment and Plan Assessment Anesthesia Assessment: Chart Reviewed Final Anesthetic Review Family History of Problems with Anesthesia: No History of Problems with Anesthesia: No Documented by User: Demetra Matthews MD 11/10/23 07:56 PMFSH Past Medical History Medical History History of snoring Hematuria Hyperkalemia BPH (benign prostatic hyperplasia) Carpal tunnel syndrome Annual physical exam Type 2 diabetes mellitus Cervical spine degeneration Hyperlipidemia Overweight Ankle fracture, left SVT (supraventricular tachycardia) Peripheral neuropathy Chronic foot ulcer Family History Family History Father Lung cancer Mother No problems noted. Sister Substance use disorder Sister Substance use disorder Surgical History Surgical History History of carpal tunnel surgery of right wrist H/O cardiac radiofrequency ablation H/O foot surgery [place] teeth extracted Social History Social History Housing: House Patient Tobacco Use Status: Current everyday Tobacco user Tobacco use type: Cigarette Cigarettes Per Day: 15 Years Smoked: 32 e-Cigarette/Vaping Use: Never Used Use of substances other than those prescribed or required for medical reasons: No Are you DNR?: No Advance Directives: No Advance Directives Information Provided: Yes Current occupational status: employed 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 needs: No Hearing needs: No Vision needs: No Meds Allergies Allergy/AdvReac Type Severity Reaction Status Date / Time acetaminophen [Acetaminophen] Allergy Intermediate rash from Verified 11/10/23 07:05 liquid form after prolonged use lisinopril AdvReac Intermediate Cough Verified 11/10/23 07:05 Exam Airway Mallampati Class: II Neck ROM: Full Heart: rrr Lungs: cta Assessment and Plan Assessment Anesthesia Assessment: Anesthesia Plan Discussed Final Anesthetic Review NPO: Yes ASA Class: III Final Preanesthetic Review: No Changes in Pt Med Stat, Meds/Allgs Chart Reviewed, Consent Obtained/Reviewed and Anes Risks/Benef Reviewed Patient Risk: Intermediate Procedure Risk: Low Anesthetic Plan Anesthetic Plan: MAC: Disposition: Standard PACU
[2023-11-10 06:57] VITALS: BMI 39.1
[2023-11-10 07:18] VITALS: BP 167/100; PULSE 83; RESP 16; TEMP 36.1; O2SAT 96
[2023-11-10] MEDS: Lactated Ringers 1,000 ML 100 ML IVCONT (07:20)
[2023-11-10 07:42] LABS: Glucose, Whole Blood 116 mg/dL (60-115)
--- NOTE | 2023-11-10 07:51 | P.HPSUR_ITS ---
Pre-Procedural Eval Section A Date of Service: 11/10/23 The patient is an INPATIENT: No The History & Physical has been completed within 30 days and I have reviewed it.: No Section B Chief Complaint: Colon cancer screening Relevant Family History (Specify if Yes): No Relevant Social History: Tobacco Use Present Medications: see Short Stay Collaborative assessment Medical History: Significant History (BPH (benign prostatic hyperplasia) Carpal tunnel syndrome Cervical spine degeneration Chronic foot ulcer Hematuria History of snoring Hyperkalemia Hyperlipidemia Overweight Peripheral neuropathy SVT (supraventricular tachycardia) Type 2 diabetes mellitus) History of Previous Operations: Relevant previous surgery/procedure and date(s) (H/O cardiac radiofrequency ablation H/O foot surgery [place] teeth extracted) Allergies: Allergies Allergy/AdvReac Type Severity Reaction Status Date / Time acetaminophen [Acetaminophen] Allergy Intermediate rash from Verified 11/10/23 07:05 liquid form after prolonged use lisinopril AdvReac Intermediate Cough Verified 11/10/23 07:05 Review of Systems Sugical H&P ROS: Negative: Constitution, Cardiovascular, Respiratory and Gastrointestinal Exam Surgical H&P Exam: Normal: Heart, Normal: Lungs, Normal: Extremities and Normal: Abdomen Plan Diagnosis/Plan: Unchanged I have reviewed the history and physical and performed a pertinent physical examination on my patient. No changes have occurred unless specified. Time Spent With Patient Time: Total time managing care of this patient today ____ minutes.
--- NOTE | 2023-11-10 09:09 | W.PM.OPN ---
Operative Note Operative Note Date of Service: 11/10/23 Narrative: COLONOSCOPY TILL CECUM WITH BIOPSIES Pre-op diagnosis: Colon cancer screening (1st colonoscopy), intermittent diarrhea Post-op diagnosis:? Colon polyp, diverticulosis, hemorrhoids Endoscopist:? Torie Potts MD Anesthesia:?MAC Consent: Indications for the procedure and potential complications of bleeding, perforation, reaction to medications and missed diagnosis were discussed with the patient and informed consent was obtained. Instrument: Olympus CF H 190 L variable stiffness adult colonoscope Monitoring: Vital signs and clinical assessment, intermittent blood pressure monitoring, continuous EKG monitoring, Pulse oximetry and Carbon Dioxide monitoring were done throughout the procedure. Please see anesthesia flowsheet. Colon withdrawl time was 15 minutes. Procedure: The patient was placed in the left lateral decubitis position and pre-procedure medications were administered. After a digital rectal examination of the ano-rectum, the video colonoscope was inserted into the rectum and advanced through the colon to the cecum. The colonoscope was slowly withdrawn in a retrograde panoramic fashion and the colon mucosa was carefully examined including a retroflexed view of the rectum. Findings and interventions are described below. Procedure Difficulty: Without difficulty Findings: Terminal Ileum: Not evaluated Cecum: Normal Ascending Colon: Normal Transverse Colon: Normal Descending Colon: Normal Sigmoid Colon: A 4-5 mm diminutive appearing polyp - removed with a cold biopsy. Moderate diverticulosis Rectum: Normal Ano-rectum: Small internal hemorrhoids Colon preparation: Good after some irrigation [place] Bowel Preparation Scale Right colon; 2 Transverse colon: 2 Left colon; 2 (0 = Unprepared colon segment with mucosa not seen due to solid stool that cannot be cleared. 1 = Portion of mucosa of the colon segment seen, but other areas of the colon segment not well seen due to staining, residual stool and/or opaque liquid. 2 = Minor amount of residual staining, small fragments of stool and/or opaque liquid, but mucosa of colon segment seen well. 3 = Entire mucosa of colon segment seen well with no residual staining, small fragments of stool or opaque liquid) Impression and Post Procedure Diagnosis: Colonoscopy Findings: One small polyp removed Random biopsies were obtained from the colon to check for microscopic colitis Moderate diverticulosis seen in the sigmoid colon Small hemorrhoids on retroflexed exam. Plan: Await pathology results Patient has an appointment on 12/03/23 in the GI Clinic with BRANDI Price. Repeat Colonoscopy interval based on path results - in 5 years if polyps are adenomatous and 10 years if polyps are hyperplastic. Above findings were reviewed with the patient and colon polyps and diverticulosis handouts were given in the discharge area
[2023-11-10 09:10] VITALS: BP 115/56; PULSE 76; RESP 16; TEMP 36.1; O2SAT 93
[2023-11-10 09:25] VITALS: BP 129/89; PULSE 82; RESP 18; TEMP 36.2; O2SAT 97
== END 2023-11-10 10:05 | disposition home or self-care (01) ==
PROVIDERS: PCP Internal Medicine; Visit Provider Internal Medicine Gastroenterology
PROC: 0DJD8ZZ Inspection of Lower Intestinal Tract, Via Natural or Artificial Opening Endoscopic (ICD-10-PCS; CPT 45378; principal; 2023-11-10 08:30)
DX: Z12.11 Encounter for screening for malignant neoplasm of colon (principal); K63.5 Polyp of colon; K57.30 Diverticulosis of large intestine without perforation or abscess without bleeding; K64.8 Other hemorrhoids; R19.7 Diarrhea, unspecified; E78.5 Hyperlipidemia, unspecified; E11.9 Type 2 diabetes mellitus without complications; G62.9 Polyneuropathy, unspecified; Z79.84 Long term (current) use of oral hypoglycemic drugs; Z79.899 Other long term (current) drug therapy; Z88.8 Allergy status to other drugs, medicaments and biological substances
CPT/HCPCS: 45380; 82947; 88305; J2704

== ENCOUNTER → 2023-11-10 06:52 | Outpatient (BNV) | payer OTHER, SELFPAY | PROVIDERS: PCP Internal Medicine; Visit Provider Internal Medicine Gastroenterology | DX: Z12.11 Encounter for screening for malignant neoplasm of colon (principal); R19.7 Diarrhea, unspecified; K63.5 Polyp of colon; K57.30 Diverticulosis of large intestine without perforation or abscess without bleeding | CPT/HCPCS: 45380 ==

== ENCOUNTER 2023-12-03 08:15 | Outpatient (AMB) | payer OTHER, SELFPAY ==
[2023-12-03 08:32] VITALS: BP 141/84; PULSE 80; O2SAT 95; BMI 39.6
--- NOTE | 2023-12-03 08:32 | A.OFFVIS_ITS ---
Intake Vital Signs 12/03/23 08:32 Height 6 ft 5 in Weight 333 lb 12.478 oz BMI 39.6 BP 141/84 H Blood Pressure Location Lt brachial Position Sitting Pulse 80 Pulse Oximetry (%) 95 Intake Visit Reasons: S/P [place]; Intake Note: Patient is seen in office for post op assessment post colonoscopy. Pt c/o: denies any concerns at the time of visit Op:11/10/23 [employer] Operator Required: No Accompanied by: Spouse Allergies acetaminophen [Acetaminophen] Allergy (Intermediate, Verified 12/03/23 08:34) rash from liquid form after prolonged use lisinopril Adverse Reaction (Intermediate, Verified 12/03/23 08:34) Cough Medication List - Last Reconciled 12/03/23 by Kinga Salcedo PA-C atorvastatin 20 mg PO DAILY cyanocobalamin (vitamin B-12) 1,000 mcg PO DAILY metformin 1,000 mg PO BID olmesartan 20 mg PO DAILY tadalafil 10 mg PO DAILY 90 days HPI HPI Comments History of Present Illness Details A 48 y/o male f/u after index screening colonoscopy- Bowels alternate-he is stressed out-he is going to school, as well as working. He says he has not complaining because he is going to be graduating college this spring he is very happy about. Appetite is good no issues there He is here today with his , very pleasant Reviewed procedure, pathology and recommendations- Opportunity for questions No nausea, vomiting, hematemesis, hematochezia fever chills PFSH Medical History (Updated 12/03/23 @ 09:09 by Kinga Salcedo PA-C) History of snoring Hematuria Hyperkalemia BPH (benign prostatic hyperplasia) Carpal tunnel syndrome Annual physical exam Type 2 diabetes mellitus Cervical spine degeneration Hyperlipidemia Overweight Ankle fracture, left SVT (supraventricular tachycardia) Peripheral neuropathy Chronic foot ulcer Surgical History Hx of colonoscopy History of carpal tunnel surgery of right wrist H/O cardiac radiofrequency ablation H/O foot surgery [place] teeth extracted Family History Father Lung cancer Mother No problems noted. 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 Cognitive needs: No Hearing needs: No Vision needs: No Review of Systems Const Details: Alternating stool pattern,-associates with stress All systems reviewed & are unremarkable except as noted in HPI and below Card Denies chest pain and Denies dyspnea Resp Denies dyspnea GI Denies abdominal pain Psych Reports anxiety Physical Exam Vital Signs: Last Vital Signs Pulse 80 12/03/23 08:32 BP 141/84 H 12/03/23 08:32 Pulse Ox 95 12/03/23 08:32 BMI result Body Mass Index 39.6 Const General: cooperative, healthy appearing, comfortable and no acute distress Orientation/consciousness: patient oriented x3 Limitations: no limitations Eyes Conjunctivae: conjunctivae normal Sclerae: sclerae normal Resp Effort & Inspection: normal respiratory effort and able to speak in complete sentences Skin General skin exam: no rashes or lesions noted Neuro General: patient oriented x3 Extrem General: Yes full ROM Psych Appearance: grossly normal and well kempt Mental Status: mental status grossly normal Speech and movement: Normal speech and movement present and Clear speech present Affect: normal affect Attitude: cooperative Thought process: Normal thought process present Thought content: Normal thought content present Insight: Good insight present (Psych) Judgement: Good judgement present (Psych) Results Reviewed Results Reviewed: Findings: Terminal Ileum: Not evaluated Cecum: Normal Ascending Colon: Normal Transverse Colon: Normal Descending Colon: Normal Sigmoid Colon: A 4-5 mm diminutive appearing polyp - removed with a cold biopsy. Moderate diverticulosis Rectum: Normal Ano-rectum: Small internal hemorrhoids marely: Woody Davila Age/Sex: 48/M Attending: Torie Potts MD : 1975 Submitted by: Torie Potts MD Copies to: Leonarda Gandhi MD MR #: [id number] Status: [facility] Collected: 11/10/23 Location: [facility] Received: 11/10/23 Diagnosis A. Colon, random, biopsy: Colonic mucosa within normal limits; negative for microscopic colitis. B. Colon, sigmoid, polypectomy: Colonic mucosa with mild surface hyperplastic changes; multiple additional levels examined. Clinical History Pre-Op Dx: Screening Post-Op Dx: Colon polyps, diverticulosis, hemorrhoids Microscopic Description A, B. Microscopic sections reviewed. Material Received A. Bx random colon (r/o microscopic colitis) B. Polyp sigmoid colon Gross Description Received in 2 parts. Part A: Received in formalin labeled ?bx random colon, rule out microscopic colitis? are 6 keyes irregular and rectangular tissue fragments ranging from 0.1-0.35 cm, submitted in toto in a cassette labeled A. Part B: Received in formalin labeled ?polyp sigmoid colon? is a 0.25 cm keyes-pink papular tissue fragment, submitted in toto in a cassette labeled B. CEDS Copies To Leonarda Gandhi MD [address] [place] [address] [place] [address] Torie Potts MD [address] [place] [address] [place] [address] Patient: Woody Davila Age/Sex: 48/M MR#: [id number] Page 1 of 2 Assessment & Plan Assessment & Plan (1) Diverticulosis of colon: Comment: Very pleasant Gent-alternating stool pattern most likely cause IBS-discussed stress reduction Code(s): K57.30 - Diverticulosis of large intestine without perforation or abscess without bleeding Plan: Maintain high-fiber diet fiber supplements Diverticulosis/diverticulitis ER protocol (2) Hyperplastic colon polyp: Comment: Benign Code(s): K63.5 - Polyp of colon Plan: Repeat asymptomatic colonoscopy 10 years (3) Hemorrhoids: Code(s): K64.9 - Unspecified hemorrhoids Plan: Avoid straining Maintain high-fiber diet Plan 10 year asymptomatic colonoscopy please place reminder Patient Instructions: Very pleasant 48-year-old Gent follows up after index screening colonoscopy Alternating stool pattern likely IBS he will increase fiber-stress reduction 10 year asymptomatic screening colonoscopy Diverticulosis/diverticulitis ER protocol review Reviewed dietary modifications/foods to avoid Maintain high-fiber diet Encouraged to call with any questions or concerns Coding Level of Care Code Est Pt Level 3 (66938) Diagnoses Diverticulosis of colon K57.30 Hyperplastic colon polyp K63.5 Hemorrhoids K64.9 Time Spent (min) 20
== END 2023-12-03 09:45 | disposition home or self-care (01) ==
PROVIDERS: PCP Internal Medicine; Visit Provider Physician Assistant
DX: K57.30 Diverticulosis of large intestine without perforation or abscess without bleeding (principal); K63.5 Polyp of colon; K64.9 Unspecified hemorrhoids
CPT/HCPCS: 99213

== ENCOUNTER → 2023-12-03 08:15 | Outpatient (BNVA) | payer OTHER, SELFPAY | PROVIDERS: PCP Internal Medicine; Visit Provider Physician Assistant ==

== ENCOUNTER 2024-02-16 07:42 | Outpatient (REF) | payer SELFPAY ==
[2024-02-16 10:26] LABS: MANUAL DIFF FLAG NO
[2024-02-16 10:31] LABS: Basophils Percent Auto 0.4 % (0-2); Eosinophils Absolute Auto 0.3 X10*3/uL (0.0-0.4); Hematocrit 49.7 % (42.0-52.0); Hemoglobin 16.8 g/dl (14.0-18.0); Imm Gran Abs Auto 0.05 X10*3/uL (0.00-0.03); Imm Gran Pct Auto 0.6 % (0.0-0.4); Lymphocytes Absolute Auto 2.1 X10*3/uL (1.2-4.9); Lymphocytes Percent Auto 23.4 % (20-40); Mean Corpuscular HGB Conc 33.8 g/dl (31.0-36.0); Mean Corpuscular Hemoglobin 29.5 pg (27.0-33.0); Mean Corpuscular Volume 87.3 fL (80.0-98.0); Mean Platelet Volume 9.3 fL (9.4-12.4); Monocytes Absolute Auto 0.6 X10*3/uL (0.1-1.2); Monocytes Percent Auto 6.8 % (2-11); Neutrophils Absolute Auto 5.9 x10*3/uL (2.0-8.3); Neutrophils Percent Auto 65.8 % (45-73); Platelet Count 312 X10*3/uL (160-400); Red Blood Count 5.69 X10*6/uL (4.60-5.80); Red Cell Distribution Width 13.6 % (11.0-16.0)
[2024-02-16 10:36] LABS: Estimated Average Glucose 123 mg/dL; Hemoglobin A1c % 5.9 % (<6.0)
[2024-02-16 10:52] LABS: Alanine Aminotransferase 32 U/L (0-40); Albumin Level 4.2 g/dL (3.5-5.0); Alkaline Phosphatase 89 U/L (39-117); Anion Gap 10 (12-20); Aspartate Amino Transferase 19 U/L (5-37); Bilirubin Total 0.3 mg/dL (0.0-1.0); Blood Urea Nitrogen 8 mg/dL (9-16); Calcium 9.6 mg/dL (8.4-10.2); Carbon Dioxide 28 mmol/L (22-29); Chloride 106 mmol/L (96-108); Cholesterol 129 mg/dL (<200); Estimated Glomerular Filt Rate > 60; Glucose Fasting 118 mg/dL (60-99); HDL Cholesterol 35 mg/dL (>40); LDL Cholesterol Calculated 71 mg/dL (<100); Potassium 4.8 mmol/L (3.3-5.1); Sodium 139 mmol/L (135-145); Total Protein 7.3 g/dL (6.5-8.0); Triglycerides 116 mg/dL (<150)
[2024-02-16 10:59] LABS: Creatinine Urine 93.47 mg/dL; Microalbumin Urine < 5.0 mg/L
[2024-02-16 11:17] LABS: Folate 4.2 ng/mL (> or = 4.0); Vitamin B12 538 pg/mL (200-900)
== END 2024-02-16 07:43 | disposition home or self-care (01) ==
LOC: HO.HMGCLDS 07:42
PROVIDERS: PCP Internal Medicine; Visit Provider Internal Medicine
DX: E78.5 Hyperlipidemia, unspecified (principal); E11.9 Type 2 diabetes mellitus without complications; I10 Essential (primary) hypertension
CPT/HCPCS: 36415; 80053; 80061; 82570; 82607; 82746; 83036; 85025

== ENCOUNTER 2024-02-19 11:15 | Outpatient (AMB) | payer OTHER, SELFPAY ==
[2024-02-19 11:46] VITALS: BP 120/74; PULSE 82; O2SAT 95; BMI 39.4
--- NOTE | 2024-02-19 11:46 | A.OFFPC_ITS ---
Vital Signs 02/19/24 11:46 Height 6 ft 5 in Weight 332 lb BMI 39.4 BP 120/74 Blood Pressure Location Rt brachial Position Sitting Pulse 82 Pulse Source Pulse Oximeter Pulse Oximetry (%) 95 Oxygen Delivery Method Room Air Intake Visit Reasons: Annual PE Intake Note: Pt is here today for PE. Allergies acetaminophen [Acetaminophen] Allergy (Intermediate, Verified 02/19/24 11:59) rash from liquid form after prolonged use lisinopril Adverse Reaction (Intermediate, Verified 02/19/24 11:59) Cough Medication List - Last Reconciled 02/19/24 by Leonarda Gandhi MD atorvastatin 20 mg PO DAILY cyanocobalamin (vitamin B-12) 1,000 mcg PO DAILY metformin ER 2,000 mg (2 x 1,000 mg) PO DAILY olmesartan 20 mg PO DAILY tadalafil 10 mg PO DAILY 90 days Tobacco use date assessed: 02/19/24 Dental Screening Dental Screen Date: 02/19/24 Did you have a dental visit in the last 12 months?: Yes Did you have a dental problem in the last 6 months where you did not have access to dental care?: No Was dental information given to patient?: Patient has dentist HPI Annual PE HPI Details Patient presents for physical PFSH Medical History (Updated 02/19/24 @ 15:16 by Leonarda Gandhi MD) History of snoring Hematuria Hyperkalemia BPH (benign prostatic hyperplasia) Carpal tunnel syndrome Annual physical exam Type 2 diabetes mellitus Cervical spine degeneration Hyperlipidemia Overweight Ankle fracture, left SVT (supraventricular tachycardia) Peripheral neuropathy Chronic foot ulcer Surgical History Hx of colonoscopy History of carpal tunnel surgery of right wrist H/O cardiac radiofrequency ablation H/O foot surgery [place] teeth extracted Family History Father Lung cancer Mother No problems noted. 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 1. Little interest or pleasure in doing things: not at all 2. Feeling down, depressed, or hopeless: not at all 3. Trouble falling or staying asleep, or sleeping too much: not at all 4. Feeling tired or having little energy: several days 5. Poor appetite or overeating: several days 6. Feeling bad about yourself - or that you are a failure or have let yourself or your family down: not at all 7. Trouble concentrating on things, such as reading the newspaper or watching television: not at all 8. Moving or speaking so slowly that other people could have noticed. Or the opposite - being so fidgety or restless that you have been moving around a lot more than usual: not at all 9. Thoughts that you would be better off or of hurting yourself in some way: not at all Total score: 2 Depression Screening Interpretation: Negative Depression Screening Done: Yes Source: Developed by Drs. Woody Rocha, Franny Pruitt, Luis Christianson and colleagues, with an educational cathleen from [employer]. Thrive Questionnaire Date Thrive assessed: 02/19/24 I am a: Patient What is your living situation today?: I have a steady place to live Within the past 12 months, did the food you bought not last and you didn't have the money to get more?: Sometimes True Within the past 12 months, did you worry whether your food would run out before you got money to buy more?: Sometimes True THRIVE Score: 2 AUDIT C Alcohol Use Questionnaire (AUDIT-C) 1. How often do you have a drink containing alcohol?: Monthly or less 2. How many drinks containing alcohol do you have on a typical day when you are drinking?: 1 or 2 3. How often do you have six or more drinks on one occasion?: Never Total Score: 1 HAIDER-7 AMB Questionnaire HAIDER-7 Date HAIDER - 7 assessed: 02/19/24 Feeling nervous, anxious, or on edge: 0 = Not at all Not being able to stop or control worryin = Not at all Worrying too much about different things: 0 = Not at all Trouble relaxin = Several days Being so restless that it is hard to sit still: 0 = Not at all Becoming easily annoyed or irritable: 0 = Not at all Feeling afraid as if something awful might happen: 0 = Not at all Total HAIDER-7 score (0-4 normal; 5-9 mild; 10-14 moderate; 15-21 severe): 1 Source: Developed by Drs. Woody Rocha, Franny Pruitt, Luis Christianson and colleagues, with an educational cathleen from [employer]. Review of Systems Const All systems reviewed & are unremarkable except as noted in HPI and below Eyes Reports no additional complaints ENT Reports no additional complaints Card Reports no additional complaints Resp Reports no additional complaints GI Reports no additional complaints Reports no additional complaints Physical exam (Primary Care) Vital Signs: Last Vital Signs Pulse 82 02/19/24 11:46 BP 120/74 02/19/24 11:46 Pulse Ox 95 02/19/24 11:46 Oxygen Delivery Method Room Air 02/19/24 11:46 BMI result Body Mass Index 39.4 Tobacco/Smoking Status: Tobacco use Status Tobacco use date assessed 02/19/24 02/19/24 12:00 Patient Tobacco Use Status Current everyday Tobacco 02/19/24 11:47 Tobacco use type Cigarette 02/19/24 11:47 e-Cigarette/Vaping Use Never Used 02/19/24 11:47 PHQ-9: PHQ-9 Score PHQ-9: Total score 2 02/19/24 12:15 Depression Screening Interpretation: Negative Thrive Assessment: Date of Thrive Assessment Date Thrive assessed 02/19/24 02/19/24 12:02 Const General: no acute distress HENMT Head: Yes normal to inspection Ears: hearing grossly normal bilaterally Mouth: Normal oral and palatal mucosa present Eyes General: appearance normal, both eyes and all related structures Neck Neck: Yes no lymphadenopathy and Yes supple Resp Effort & Inspection: normal respiratory effort Auscultation: clear to auscultation bilaterally Cardio Rhythm: regular rhythm Heart sounds: S1 normal heart sound present and S2 normal heart sound present GI Inspection: Yes normal to inspection Palpation (GI): Soft to palpation Percussion: Yes normal to percussion Auscultation: normal bowel sounds Assessment and Plan Assessment & Plan (1) HTN (hypertension): Code(s): I10 - Essential (primary) hypertension Plan: Continue olmesartan (2) Type 2 diabetes mellitus: Code(s): E11.9 - Type 2 diabetes mellitus without complications Plan: A1c is 5.9, ADA diet regular physical activity weight loss discussed with the patient continue metformin follow-up in 6 months with a fasting labs before (3) Annual physical exam: Code(s): Z00.00 - Encounter for general adult medical examination without abnormal findings Plan: Well-balanced diet regular exercise weight loss discussed with the patient he is up-to-date with colonoscopy (4) Overweight: Code(s): E66.3 - Overweight (5) Hyperlipidemia: Code(s): E78.5 - Hyperlipidemia, unspecified Plan: Continue statin Orders: Orders Hemoglobin A1c 6 Months E11.9 - Type 2 diabetes mellitus without complications, I10 - Essential (primary) hypertension, Z00.00 - Encounter for general adult medical examination without abnormal findings Comprehensive [place]. Panel Fast 6 Months E11.9 - Type 2 diabetes mellitus without complications, I10 - Essential (primary) hypertension, Z00.00 - Encounter for general adult medical examination without abnormal findings Complete Blood Count Auto Diff 6 Months E11.9 - Type 2 diabetes mellitus without complications, I10 - Essential (primary) hypertension, Z00.00 - Encounter for general adult medical examination without abnormal findings Microalbumin, Random (w Creat) 6 Months E11.9 - Type 2 diabetes mellitus without complications, I10 - Essential (primary) hypertension, Z00.00 - Encounter for general adult medical examination without abnormal findings Lipid Panel 6 Months E11.9 - Type 2 diabetes mellitus without complications, I10 - Essential (primary) hypertension, Z00.00 - Encounter for general adult medical examination without abnormal findings Medications: New metformin ER 2,000 mg (2 x 1,000 mg) PO DAILY 180 tabs 3RF Discontinued metformin Discontinued Reason: Doctor's Order 1,000 mg PO BID 180 tabs 3RF Coding Level of Care Code Est Pt Prev Care 40-64y(62991) Diagnoses HTN (hypertension) I10 Type 2 diabetes mellitus E11.9 Annual physical exam Z00.00 Overweight E66.3 Hyperlipidemia E78.5
== END 2024-02-19 13:09 | disposition home or self-care (01) ==
PROVIDERS: Visit Provider Internal Medicine
DX: I10 Essential (primary) hypertension (principal); E11.9 Type 2 diabetes mellitus without complications; Z00.00 Encounter for general adult medical examination without abnormal findings; E66.3 Overweight; E78.5 Hyperlipidemia, unspecified
CPT/HCPCS: 99396

== ENCOUNTER 2024-07-26 10:08 | Outpatient (AMB) | payer OTHER, SELFPAY ==
--- NOTE | 2024-07-26 10:14 | A.OFFPC_ITS ---
Vital Signs 07/26/24 10:22 Height 6 ft 5 in Weight 330 lb BMI 39.1 BP 118/74 Blood Pressure Location Rt brachial Position Sitting Pulse 81 Pulse Source Pulse Oximeter Pulse Oximetry (%) 96 Oxygen Delivery Method Room Air Intake Visit Reasons: ER follow up Intake Note: Pt is here today for ER follow up visit. Allergies acetaminophen [Acetaminophen] Allergy (Intermediate, Verified 07/26/24 10:25) rash from liquid form after prolonged use lisinopril Adverse Reaction (Intermediate, Verified 07/26/24 10:25) Cough Medication List - Last Reconciled 07/26/24 by Leonarda Gandhi MD atorvastatin 20 mg PO DAILY cyanocobalamin (vitamin B-12) 1,000 mcg PO DAILY metformin ER 2,000 mg (2 x 1,000 mg) PO DAILY olmesartan 20 mg PO DAILY tadalafil 10 mg PO DAILY 90 days Tobacco use date assessed: 07/26/24 Dental Screening Dental Screen Date: 07/26/24 Did you have a dental visit in the last 12 months?: Yes Did you have a dental problem in the last 6 months where you did not have access to dental care?: No Was dental information given to patient?: Patient has dentist HPI ER follow up HPI Details Patient presents for the follow-up visit after ER visit for right lower extremity cellulitis after a bug bite. Patient completed course of doxycycline and the infection resolved. Patient has not been taking metformin for 1 month because did not refill it at the pharmacy. He has not been monitoring his blood glucose. Hypertension and hyperlipidemia are stable on current medications. [facility] Medical History (Updated 02/19/24 @ 15:16 by Leonarda Gandhi MD) History of snoring Hematuria Hyperkalemia BPH (benign prostatic hyperplasia) Carpal tunnel syndrome Annual physical exam Type 2 diabetes mellitus Cervical spine degeneration Hyperlipidemia Overweight Ankle fracture, left SVT (supraventricular tachycardia) Peripheral neuropathy Chronic foot ulcer Surgical History Hx of colonoscopy History of carpal tunnel surgery of right wrist H/O cardiac radiofrequency ablation H/O foot surgery [place] teeth extracted Family History Father Lung cancer Mother No problems noted. 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 How often do you have a drink containing alcohol?: Monthly or less 2. How many drinks containing alcohol do you have on a typical day when you are drinking?: 1 or 2 3. How often do you have six or more drinks on one occasion?: Never Total Score: 1 HAIDER-7 AMB Questionnaire HAIDER-7 Date HAIDER - 7 assessed: 02/19/24 Source: Developed by Drs. Woody Rocha, Franny Pruitt, Luis Christianson and colleagues, with an educational cathleen from [employer]. Review of Systems Const All systems reviewed & are unremarkable except as noted in HPI and below Card Reports no additional complaints Resp Reports no additional complaints GI Reports no additional complaints Reports no additional complaints Physical exam (Primary Care) Vital Signs: Last Vital Signs Pulse 81 07/26/24 10:22 BP 118/74 07/26/24 10:22 Pulse Ox 96 07/26/24 10:22 Oxygen Delivery Method Room Air 07/26/24 10:22 BMI result Body Mass Index 39.1 Tobacco/Smoking Status: Tobacco use Status Tobacco use date assessed 07/26/24 07/26/24 10:26 Patient Tobacco Use Status Current everyday Tobacco 07/26/24 10:15 Tobacco use type Cigarette 07/26/24 10:15 e-Cigarette/Vaping Use Never Used 07/26/24 10:15 Thrive Assessment: Date of Thrive Assessment Date Thrive assessed 02/19/24 07/26/24 10:15 Const General: no acute distress HENMT Face and sinus: Yes normal facial exam Resp Effort & Inspection: normal respiratory effort Auscultation: clear to auscultation bilaterally Cardio Rhythm: regular rhythm Heart sounds: S1 normal heart sound present and S2 normal heart sound present GI Palpation (GI): Soft to palpation Extrem Other: 1+ pitting edema and chronic venous stasis change in both lower extremities. No erythema warmth and skin is inact Assessment and Plan Assessment & Plan (1) HTN (hypertension): Code(s): I10 - Essential (primary) hypertension Plan: Continue current medications (2) Hyperlipidemia: Code(s): E78.5 - Hyperlipidemia, unspecified Plan: Continue statin (3) Type 2 diabetes mellitus: Code(s): E11.9 - Type 2 diabetes mellitus without complications Plan: A1c diet and medication compliance discussed with the patient. He will restart metformin and follow-up in 2 months with a fasting labs before Medications: Refilled metformin ER 2,000 mg (2 x 1,000 mg) PO DAILY 180 tabs 3RF Coding Level of Care Code Est Pt Level 4 (68381) Diagnoses HTN (hypertension) I10 Hyperlipidemia E78.5 Type 2 diabetes mellitus E11.9
[2024-07-26 10:22] VITALS: BP 118/74; PULSE 81; O2SAT 96; BMI 39.1
== END 2024-07-26 15:11 | disposition home or self-care (01) ==
PROVIDERS: PCP Internal Medicine; Visit Provider Internal Medicine
DX: I10 Essential (primary) hypertension (principal); E78.5 Hyperlipidemia, unspecified; E11.9 Type 2 diabetes mellitus without complications

== ENCOUNTER → 2024-07-26 10:08 | Outpatient (BNVA) | payer OTHER, SELFPAY | PROVIDERS: PCP Internal Medicine; Visit Provider Internal Medicine ==

== ENCOUNTER 2024-09-13 09:12 | Outpatient (AMB) | payer OTHER, SELFPAY ==
[2024-09-13 09:29] VITALS: BP 110/70; PULSE 87; O2SAT 95; BMI 39.7
--- NOTE | 2024-09-13 09:29 | MHC.PC.OV ---
Vital Signs 09/13/24 09:29 Height 6 ft 5 in Weight 335 lb BMI 39.7 BP 110/70 Blood Pressure Location Rt brachial Position Sitting Pulse 87 Pulse Source Pulse Oximeter Pulse Oximetry (%) 95 Oxygen Delivery Method Room Air Intake Visit Reasons: 6M F/U Intake Note: Pt is here today for 6 months follow up visit on HTN and DM. Allergies acetaminophen [Acetaminophen] Allergy (Intermediate, Verified 09/13/24 09:30) rash from liquid form after prolonged use lisinopril Adverse Reaction (Intermediate, Verified 09/13/24 09:30) Cough Medication List - Last Reconciled 09/13/24 by Leonarda Gandhi MD atorvastatin 20 mg PO DAILY cyanocobalamin (vitamin B-12) 1,000 mcg PO DAILY metformin ER 2,000 mg (2 x 1,000 mg) PO DAILY olmesartan 20 mg PO DAILY tadalafil 10 mg PO DAILY 90 days Tobacco use date assessed: 09/13/24 Dental Screening Dental Screen Date: 07/26/24 HPI 6M F/U HPI Details Patient presents for the follow-up of hypertension hyperlipidemia type 2 diabetes. He has not been taking metformin for few months because metformin 1000 mg slow-release is not covered by his insurance. Patient has been follow ADA diet and being physically active. He does not check his glucose level regularly [facility] Medical History History of snoring Hematuria Hyperkalemia BPH (benign prostatic hyperplasia) Carpal tunnel syndrome Annual physical exam Type 2 diabetes mellitus Cervical spine degeneration Hyperlipidemia Overweight Ankle fracture, left SVT (supraventricular tachycardia) Peripheral neuropathy Chronic foot ulcer Surgical History Hx of colonoscopy History of carpal tunnel surgery of right wrist H/O cardiac radiofrequency ablation H/O foot surgery [place] teeth extracted Family History Father Lung cancer Mother No problems noted. 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 1. Little interest or pleasure in doing things: not at all 2. Feeling down, depressed, or hopeless: not at all 3. Trouble falling or staying asleep, or sleeping too much: not at all 4. Feeling tired or having little energy: not at all 5. Poor appetite or overeating: not at all 6. Feeling bad about yourself - or that you are a failure or have let yourself or your family down: not at all 7. Trouble concentrating on things, such as reading the newspaper or watching television: not at all 8. Moving or speaking so slowly that other people could have noticed. Or the opposite - being so fidgety or restless that you have been moving around a lot more than usual: not at all 9. Thoughts that you would be better off or of hurting yourself in some way: not at all Total score: 0 Depression Screening Interpretation: Negative Depression Screening Done: Yes 17518 - PHQ-9 Billing: Yes Source: Developed by Drs. Woody Rocha, Franny Pruitt, Luis Christianson and colleagues, with an educational cathleen from [email or web address]. Thrive Questionnaire Date Thrive assessed: 09/06/24 I am a: Patient What is your living situation today?: I have a steady place to live Within the past 12 months, did the food you bought not last and you didn't have the money to get more?: Never true Within the past 12 months, did you worry whether your food would run out before you got money to buy more?: Never true Do you have trouble paying for medicines?: No Do you have trouble getting transportation to medical appointments?: No Do you have trouble paying your heating and electricity bill?: No Do you have trouble taking care of your child, family member or friend?: No Do you have trouble with day-to-day activities such as bathing, preparing meals, shopping, managing finances, etc.?: No Are you currently unemployed and looking for a job?: No Are you interested in more education?: No Please select the resources that you would like help with: None Currently or been in a relationship where the following occur: No concerns reported THRIVE Score: 0 AUDIT C Alcohol Use Questionnaire (AUDIT-C) 1. How often do you have a drink containing alcohol?: Monthly or less Total Score: 1 HAIDER-7 AMB Questionnaire HAIDER-7 Date HAIDER - 7 assessed: 02/19/24 Feeling nervous, anxious, or on edge: 0 = Not at all Not being able to stop or control worryin = Not at all Worrying too much about different things: 0 = Not at all Trouble relaxin = Not at all Being so restless that it is hard to sit still: 0 = Not at all Becoming easily annoyed or irritable: 0 = Not at all Feeling afraid as if something awful might happen: 0 = Not at all Total HAIDER-7 score (0-4 normal; 5-9 mild; 10-14 moderate; 15-21 severe): 0 Source: Developed by Drs. Woody Rocha, Franny Pruitt, Luis Christianson and colleagues, with an educational cathleen from [email or web address]. Review of Systems Const All systems reviewed & are unremarkable except as noted in HPI and below ENT Reports no additional complaints Card Reports no additional complaints Resp Reports no additional complaints GI Reports no additional complaints Reports no additional complaints Physical exam (Primary Care) Vital Signs: Last Vital Signs Pulse 87 09/13/24 09:29 BP 110/70 09/13/24 09:29 Pulse Ox 95 09/13/24 09:29 Oxygen Delivery Method Room Air 09/13/24 09:29 BMI result Body Mass Index 39.7 Tobacco/Smoking Status: Tobacco use Status Tobacco use date assessed 09/13/24 09/13/24 09:30 Patient Tobacco Use Status Current everyday Tobacco 09/13/24 09:29 Tobacco use type Cigarette 09/13/24 09:29 e-Cigarette/Vaping Use Never Used 09/13/24 09:29 PHQ-9: PHQ-9 Score PHQ-9: Total score 0 09/13/24 09:30 Depression Screening Interpretation: Negative Thrive Assessment: Date of Thrive Assessment Date Thrive assessed 09/06/24 09/13/24 09:29 Currently or been in a relationship where the following occur: No concerns reported Const General: no acute distress HENMT Mouth: Normal oral and palatal mucosa present Eyes General: appearance normal, both eyes and all related structures Resp Effort & Inspection: normal respiratory effort Auscultation: clear to auscultation bilaterally Cardio Rhythm: regular rhythm Heart sounds: S1 normal heart sound present and S2 normal heart sound present GI Inspection: Yes normal to inspection Palpation (GI): Soft to palpation Coding Level of Care Code Est Pt Level 4 (13166) Diagnoses Vitamin B12 deficiency E53.8 HTN (hypertension) I10 Hyperlipidemia E78.5 Type 2 diabetes mellitus E11.9 Additional Codes PHQ-9 - 32136 - PHQ-9 Billing: Yes ([id number]) Assessment & Plan Assessment & Plan (1) Vitamin B12 deficiency: Comment: po 2 x a week Code(s): E53.8 - Deficiency of other specified B group vitamins Category: Medical Plan: Check B12 level (2) HTN (hypertension): Code(s): I10 - Essential (primary) hypertension Category: Medical Plan: Continue olmesartan (3) Hyperlipidemia: Code(s): E78.5 - Hyperlipidemia, unspecified Category: Medical Plan: Continue atorvastatin (4) Type 2 diabetes mellitus: Code(s): E11.9 - Type 2 diabetes mellitus without complications Category: Medical Plan: Patient has been off metformin for few months check A1c today if it is elevated metformin 500 mg ER WILL BE RESTARTED FOLLOW-UP IN 6 MONTHS WITH A FASTING LABS BEFORE Orders: Orders Vitamin B12 and Folate Today E53.8 - Deficiency of other specified B group vitamins Lipid Panel 6 Months E11.9 - Type 2 diabetes mellitus without complications, E78.5 - Hyperlipidemia, unspecified, I10 - Essential (primary) hypertension Hemoglobin A1c 6 Months E11.9 - Type 2 diabetes mellitus without complications, E78.5 - Hyperlipidemia, unspecified, I10 - Essential (primary) hypertension Hemoglobin A1c Today E11.9 - Type 2 diabetes mellitus without complications Comprehensive [place]. Panel Fast 6 Months E11.9 - Type 2 diabetes mellitus without complications, E78.5 - Hyperlipidemia, unspecified, I10 - Essential (primary) hypertension Complete Blood Count Auto Diff 6 Months E11.9 - Type 2 diabetes mellitus without complications, E78.5 - Hyperlipidemia, unspecified, I10 - Essential (primary) hypertension Microalbumin, Random (w Creat) 6 Months E11.9 - Type 2 diabetes mellitus without complications, E78.5 - Hyperlipidemia, unspecified, I10 - Essential (primary) hypertension Medications: Refilled atorvastatin 20 mg PO DAILY 90 tabs 3RF olmesartan 20 mg PO DAILY 90 tabs 3RF I10 - Essential (primary) hypertension Discontinued tadalafil Discontinued Reason: Doctor's Order 10 mg PO DAILY 90 days 90 tabs 0RF N52.9 - Male erectile dysfunction, unspecified metformin ER Discontinued Reason: Doctor's Order 2,000 mg (2 x 1,000 mg) PO DAILY 180 tabs 3RF
== END 2024-09-13 10:47 | disposition home or self-care (01) ==
PROVIDERS: PCP Internal Medicine; Visit Provider Internal Medicine
DX: E53.8 Deficiency of other specified B group vitamins (principal); I10 Essential (primary) hypertension; E78.5 Hyperlipidemia, unspecified; E11.9 Type 2 diabetes mellitus without complications

== ENCOUNTER 2024-09-13 09:12 | Outpatient (REF) | payer OTHER, SELFPAY ==
[2024-09-13 13:17] LABS: MANUAL DIFF FLAG NO
[2024-09-13 13:34] LABS: Basophils Percent Auto 0.4 % (0-2); Eosinophils Absolute Auto 0.2 X10*3/uL (0.0-0.4); Eosinophils Percent Auto 2.3 % (0-4); Hemoglobin 16.8 g/dl (14.0-18.0); Imm Gran Abs Auto 0.04 X10*3/uL (0.00-0.03); Imm Gran Pct Auto 0.4 % (0.0-0.4); Lymphocytes Absolute Auto 2.5 X10*3/uL (1.2-4.9); Lymphocytes Percent Auto 24.9 % (20-40); Mean Corpuscular Hemoglobin 30.4 pg (27.0-33.0); Mean Corpuscular Volume 86.8 fL (80.0-98.0); Mean Platelet Volume 9.1 fL (9.4-12.4); Monocytes Absolute Auto 0.6 X10*3/uL (0.1-1.2); Monocytes Percent Auto 6.1 % (2-11); Neutrophils Absolute Auto 6.6 x10*3/uL (2.0-8.3); Neutrophils Percent Auto 65.9 % (45-73); Platelet Count 310 X10*3/uL (160-400); Red Blood Count 5.53 X10*6/uL (4.60-5.80); Red Cell Distribution Width 13.3 % (11.0-16.0)
[2024-09-13 13:40] LABS: Estimated Average Glucose 131 mg/dL; Hemoglobin A1C 188.9154 umol/L; Hemoglobin A1c % 6.2 % (<6.0); Total Hemoglobin (HGBA1C) 4274.6739 umol/L
[2024-09-13 14:08] LABS: Creatinine Urine 86.63 mg/dL; Microalbumin Urine < 5.0 mg/L
[2024-09-13 14:17] LABS: Alanine Aminotransferase 34 U/L (0-40); Albumin Level 4.3 g/dL (3.5-5.0); Alkaline Phosphatase 79 U/L (39-117); Anion Gap 10 (12-20); Aspartate Amino Transferase 24 U/L (5-37); Bilirubin Total 0.5 mg/dL (0.0-1.0); Blood Urea Nitrogen 10 mg/dL (9-16); Calcium 9.7 mg/dL (8.4-10.2); Carbon Dioxide 29 mmol/L (22-29); Chloride 106 mmol/L (96-108); Cholesterol 134 mg/dL (<200); Estimated Glomerular Filt Rate > 60; Glucose Fasting 119 mg/dL (60-99); HDL Cholesterol 37 mg/dL (>40); LDL Cholesterol Calculated 76 mg/dL (<100); Potassium 4.8 mmol/L (3.3-5.1); Sodium 140 mmol/L (135-145); Total Protein 7.5 g/dL (6.5-8.0); Triglycerides 106 mg/dL (<150)
[2024-09-13 14:39] LABS: Folate 7.4 ng/mL (> or = 4.0); Vitamin B12 403 pg/mL (200-900)
== END 2024-09-13 09:13 | disposition home or self-care (01) ==
LOC: HO.HMGCLDS 09:12
PROVIDERS: PCP Internal Medicine; Visit Provider Internal Medicine
DX: Z00.00 Encounter for general adult medical examination without abnormal findings (principal); E11.9 Type 2 diabetes mellitus without complications; I10 Essential (primary) hypertension; E53.8 Deficiency of other specified B group vitamins
CPT/HCPCS: 36415; 80053; 80061; 82043; 82570; 82607; 82746; 83036; 85025; 96127

== ENCOUNTER 2024-12-29 08:24 | Outpatient (AMB) | payer OTHER, SELFPAY ==
--- NOTE | 2024-12-29 08:25 | MHC.OFFVIS ---
Intake Visit Reasons: Night time bladder issues, ED.(set) Intake Note: Patient presents or night time bladder issues/ED Urology Medication: none Antibiotic Allergy: none Allergies acetaminophen [Acetaminophen] Allergy (Intermediate, Verified 12/29/24 08:26) rash from liquid form after prolonged use lisinopril Adverse Reaction (Intermediate, Verified 12/29/24 08:26) Cough HPI Comments Details: Woody is a pleasant male. He is a patient of Dr. Gandhi. He is seen for the following urologic conditions - erectile dysfunction - lower urinary tract symptoms Has not been seen for proximally 3 years Current HbA1c 6.2 Diabetes managed with metformin Discussed weight loss and use of Tirzepatide Urinary Symptoms Review - Nocturia with frequent nighttime urination, occurring sometimes several times in succession. - No significant issues with the force of the urinary stream reported. - Symptoms have been persistent for an unspecified duration. Previous treatment with Tamsulosin was ineffective. Erectile dysfunction related diabetes Has some urgency frequency Nocturia progressive Erectile dysfunction Has heartburn with high-dose tadalafil Trial of daily 5 mg tadalafil [facility] Medical History History of snoring Hematuria Hyperkalemia BPH (benign prostatic hyperplasia) Carpal tunnel syndrome Annual physical exam Type 2 diabetes mellitus Cervical spine degeneration Hyperlipidemia Overweight Ankle fracture, left SVT (supraventricular tachycardia) Peripheral neuropathy Chronic foot ulcer Surgical History Hx of colonoscopy History of carpal tunnel surgery of right wrist H/O cardiac radiofrequency ablation H/O foot surgery [place] teeth extracted Family History Father Lung cancer Mother No problems noted. 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 Cognitive needs: No Hearing needs: No Vision needs: No Review of Systems Const Denies chills and Denies fever(s) Card Reports no additional complaints and Denies syncope Resp Denies cough GI Denies abdominal pain and Denies heartburn Reports as per HPI and Denies change in libido Neuro Denies syncope Psych Denies change in libido Endo Denies change in libido Physical Exam Const General: cooperative, healthy appearing, comfortable and no acute distress Orientation/consciousness: patient oriented x3 HEENT Face and sinus: Yes normal facial exam Mouth: moist mucous membranes Neck Neck: Yes normal visual inspection, Yes full ROM and Yes trachea midline Chest Chest palpation & inspection: normal inspection of the chest Resp Effort & Inspection: normal respiratory effort, able to speak in complete sentences and no respiratory distress GI Inspection: Yes normal to inspection Back/Spine/Pelvis Cervical Spine: normal cervical lordosis Thoracic/Lumbar Spine: thoracic and lumbar spine normal to inspection Skin General skin exam: no rashes or lesions noted Neuro General: patient oriented x3, gait normal, tone normal and moves all extremities Extrem General: Yes normal to inspection and Yes capillary refill normal Results AMB Urinalysis, Automated UA Leukoctes 0 [place]/uL Last Edit by Jenniffer Thomas on 12/29/24 08:38 UA Nitrite Negative Last Edit by Jenniffer Thomas on 12/29/24 08:38 UA Urobilinogen 3.5 mg/dL Last Edit by Jenniffer Thomas on 12/29/24 08:38 UA Protein 1 mg/dL Last Edit by Jenniffer Thomas on 12/29/24 08:38 UA pH 6.0 Last Edit by Jenniffer Thomas on 12/29/24 08:38 UA Blood 80 [place]/uL Last Edit by Jenniffer Thomas on 12/29/24 08:38 UA Specific [place] 1.015 Last Edit by Jenniffer Thomas on 12/29/24 08:38 UA Ketone Negative Last Edit by Jenniffer Thomas on 12/29/24 08:38 UA Bilirubin 0 mg/dL Last Edit by Jenniffer Thomas on 12/29/24 08:38 UA Glucose 0 mg/dL Last Edit by Jenniffer Thomas on 12/29/24 08:38 Assessment & Plan Assessment & Plan (1) Erectile dysfunction associated with type 2 diabetes mellitus: Code(s): E11.69 - Type 2 diabetes mellitus with other specified complication; N52.1 - Erectile dysfunction due to diseases classified elsewhere Category: Medical (2) Nocturia associated with benign prostatic hyperplasia: Code(s): N40.1 - Benign prostatic hyperplasia with lower urinary tract symptoms; R35.1 - Nocturia Category: Medical Plan Trial low-dose tadalafil On demand sildenafil Three-month follow-up Plan Tadalafil 5 mg daily prescribed with instructions to use Sildenafil as needed for erectile dysfunction. Discussion of Ozempic or Mounjaro for diabetes and weight management. Emphasis on low-carbohydrate diet and protein breakfast. Advisement to consult primary care for potential new medication for diabetes. Monitor symptoms and adjust treatment as necessary. Discussion Notes During today's discussion, I emphasized the reduction of Tadalafil dosage to 5 mg to alleviate heartburn and improve tolerability for erectile dysfunction. Alternatives including Sildenafil were considered and prescriptions provided. I introduced the potential use of injectable medications Ozempic or Mounjaro, highlighting their benefits in aiding weight and glucose control in diabetics. The importance of a low 60g carbohydrate diet with a protein-focused breakfast was discussed to facilitate weight management and potentially improve nocturia symptoms. Risks of rapid weight loss and metabolism changes were thoroughly covered. Consent to these plans was given verbally by the patient, and he agreed to consult further with his primary care provider for diabetes-specific advice. Patient Instructions - Take Tadalafil 5 mg daily as prescribed. - Use Sildenafil as needed for erectile dysfunction management. - Discuss the potential use of Ozempic or Mounjaro with your primary care provider. - Follow a diet low in carbohydrates (60g per day) and start your day with a protein-rich breakfast. - Monitor symptoms and report any significant changes or concerns. - Contact the office if you have any new or worsening symptoms or if you need further clarification on medication use. - Schedule a follow-up with your primary care provider to discuss diabetes management options. Orders: Orders AMB Urinalysis Automated Today Z13.9 - Encounter for screening, unspecified Medications: New [facility]afil [facility] DR33 [id number] 5 mg PO DAILY 90 days 90 tabs 0RF sexual activity E11.69 - Type 2 diabetes mellitus with other specified complication, N52.1 - Erectile dysfunction due to diseases classified elsewhere sildenafil administer 60 minutes before intended activity [facility] [address]33 [id number] 100 mg PO ONCE 30 days PRN 30 tabs 1RF sexual activity E11.69 - Type 2 diabetes mellitus with other specified complication, N52.1 - Erectile dysfunction due to diseases classified elsewhere Patient Instructions: This note is constructed using voice recognition software. While every effort has been made to ensure accuracy doctor of medicine errors may have been included. Imaging studies, laboratory and physical exam results were discussed and reviewed in detail. No major barriers to patient understanding were identified. An opportunity to ask questions regarding the treatment plan was provided. All questions were answered. The patient expressed understanding and agreement with the above treatment plan. The patient is aware they should contact our office by phone for worsening of their current condition or the appearance of new urologic symptoms. Compliance is encouraged with any medications and followup testing that is ordered. It is a privilege to participate in the urologic care of your patient. If you have any questions or concerns regarding treatment for the above conditions, or other urologic issues, please do not hesitate to contact me. The office telephone contact is [phone]. Sincerely, Dr Rahul Hemphill MD, [facility] - Urology Compassionate Specialist Care for the Genitourinary System Coding Level of Care Code Est Pt Level 4 (63283) Diagnoses Erectile dysfunction associated with type 2 diabetes mellitus E11.69; N52.1 Nocturia associated with benign prostatic hyperplasia N40.1; R35.1
--- OUTSIDE RECORDS SUMMARY | 2024-12-29 08:55 | XMS_ITS | Patient Health Record ---
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 Name Role Phone Leonarda Gandhi MD Primary Care Provider Unavaila karen Black, Arlene Unavailable [phone] Allergies Allergen (clinical drug ingredient) Drug/Non Drug Allergy documented on EMR Reaction Allergy Type Onset Date Status acetaminophen Tylenol only liquid form, rash Drug Allergy Active lisinopril Lisinopril Unknown Drug Allergy Activ e Results Component Value Reference Range Notes HEMOGLOBIN A1C (GLYCOHEMOGLO BIN) Reviewed date:04/09/2024 08:24:53 AM Interpretation: Performing Lab: Notes/Report: TOTAL HEMOGLOBIN (HGBA1C) 5.9 HEMOGLOBIN A1C (GLYCOHEMOGLO BIN) Reviewed date:09/14/2024 09:32:56 AM Interpretation: Performing Lab: Notes/Report: TOTAL HEMOGLOBIN (HGBA1C) 6.2 HEMOGLOBIN A1C (GLYCOHEMOGLO BIN) Reviewed date:11/30/2024 08:54:12 AM Interpretation: Performing Lab: Notes/Report: HEMOGLOBIN A1C % (HH) 5.9 Reason For Referral No Information Medications Medication SIG (Take, Route, Frequency, Duration) Notes Start Date End Date Status Ciprofloxacin HCl 500 MG 1 tablet Orally every 12 hrs for 7 days 06/18/2024 Not-Taking Cephalexin 500 MG 1 capsule Orally tatiana ry 8 hrs for 10 days Not-Taking Extra Depth Orthopedic Shoes (1 Pair) with Customized Heat Molded Multidensity Innersoles (3 Pair) as directed Dx: NIDDM/Polyneuropathy (E11.42), Hammertoe Foot Deformity (M20.41,M20.42), Preulcerative Skin Lesion(s) (L85.1 06/29/2024 Active Olmesartan Medoxomil 20 MG 1 tablet Orally Once a day Active Ammonium Lactate 12 % 1 application Exte rnally Twice a day for 30 days Active metFORMIN HCl ER 750 MG Oral for 90 Days Active metFORMIN HCl 1000 MG 1 tablet with a me al Orally Once a day Not-Taking Atorvastatin Calcium 20 MG 1 tablet Orally Once a day Active Immunizations Vaccine Route Administration Date Status Comme nts Influenza Unknown 01/21/2024 Refused Social History Tobacco Use: Social History Observation Description Date Details (start date - stop date) Current Smoker NA - NA Tobacco use other than smoking: Question Answer Notes Are you an other tobacco user? No Tobacco Control (Standard) Question Answer Notes Tobacco use: Current smoker How often do you smoke cigarettes? Every day How many cigarettes a day do you smoke? 6-10 How soon after you wake up d o you smoke your first cigarette? 6-30 minutes Are you interested in quitting? Thinking about q uitting AUDIT-C (Standard) Question Answer Notes Did you have a drink contain ing alcohol in the past year? Yes How often did you have a dri nk containing alcohol in the past year? Monthly or less (1 point) How many drinks did you have on a typical day when you were drinking in the past year? Declined to specify (0 point) How often did you have six o r more drinks on one occasion in the past year? Less than monthly (1 point) Points 2 Interpretation Negative Problems Problem Type SNOMED Code ICD Code Onset Dates Problem Status W/U Status Risk Notes Problem Polyneuropathy due to type 2 diabetes mellitus (049462035) Type 2 diabetes mellitus with diabetic polyneuropathy (E11.42) Active confirmed Problem 129291561 Hammer toe of left foot (M20.42) Active confirmed Problem Localized, primary osteoarthritis of the ankle and/or foot (732542520) Osteoarthritis of left ankle and foot (M19.072) Active confirmed Problem 074357150 Hammertoe of right foot (M20.41) Active confirmed Problem 42217409420202412 Skin ulcer of toe of right foot, limited to breakdown of skin (L97.511) Active confirmed Problem Osteoarthritis of midtarsal joint of right foot (7584668934704241) Osteoarthritis of midtarsal joint of right foot (M19.071) Active confirmed Problem Neuropathic ulcer of left heel, limited to breakdown of skin (L97.421) Active confirmed Response to treatment Problem 46789974422710129 Neuropathic ulcer of left foot, limited to breakdown of skin (L97.521) Active confirmed Response to treatment, Nonapplica ble Vital Signs Blood pressure diastolic 71 mm Hg 11/30/2024 Height 6ft 5in in 11/30/2024 Blood pressure systolic 110 mm Hg 11/30/2024 Weight 320 lbs 11/30/2024 BMI 37.94 kg/m2 11/30/2024 Procedures Procedure Date Ordered Date Performed Result Body Sit e 37344-IQWVQOP NAIL, 6 OR MORE 01/21/2024 N/A 78164-FMKT SKIN LESIONS, OVER 4 01/21/2024 N/A 35687-JCDHWGL NAIL, 6 OR MORE 04/09/2024 N/A 85984-IJWN SKIN LESIONS, OVER 4 04/09/2024 N/A 09211-GSVKOQU NAIL, 6 OR MORE 06/15/2024 N/A 14668 I&D ABSCESS- SIMPLE,SINGLE 06/15/2024 N/A 97543-OXGR SKIN LESIONS, OVER 4 06/15/2024 N/A 82289- Debride <25 sq cm 06/29/2024 N/A 16109-MJOEAPY NAIL, 6 OR MORE 09/14/2024 N/A 68423-VEEK SKIN LESIONS, OVER 4 09/14/2024 N/A 30963-HAVCWXJ NAIL, 6 OR MORE 11/30/2024 N/A 70506-ZPQI SKIN LESIONS, OVER 4 11/30/2024 N/A Encounters Encounter Location Date Provider Diagnosis [facility] [address] [place] [address] 01/21/2024 Arlene Black Type 2 diabetes mellitus with diabetic polyneuropathy E11.42 ; Pain in left foot M79.672 ; Osteoarthritis of midtarsal joint of left foot M19.072 ; Pain in right foot M79.671 ; Osteoarthritis of midtarsal joint of right foot M19.071 ; Osteoarthritis of left ankle and foot M19.072 ; Hx of fracture Z87.81 ; Neuritis M79.2 and Tinea unguium B35.[address] [place] [address] 04/09/2024 Arlene Black Type 2 diabetes mellitus with diabetic polyneuropathy E11.42 and Tinea unguium B35.[address] [address] 06/15/2024 Arlene Black Type 2 diabetes mellitus with diabetic polyneuropathy E11.42 ; Tinea unguium B35.1 ; Cellulitis of toe of right foot L03.031 ; Cutaneous abscess of right foot L02.611 ; Hammertoe of right foot M20.41 and Medial crossover toe, right foot M20.5X1 [address] [address] 06/29/2024 Arlene Black Type 2 diabetes mellitus with diabetic polyneuropathy E11.42 ; Hammertoe of right foot M20.41 ; Cellulitis of toe of right foot L03.031 ; Cutaneous abscess of right foot L02.611 ; Medial crossover toe, right foot M20.5X1 ; Hammer toe of left foot M20.42 and Skin ulcer of toe of right foot, limited to breakdown of skin L97.[address] [address] 09/14/2024 Arlene Black Type 2 diabetes mellitus with diabetic polyneuropathy E11.42 and Tinea unguium B35.[address] [address] 11/30/2024 Arlene Black Type 2 diabetes mellitus with diabetic polyneuropathy E11.42 ; Tinea unguium B35.1 and Xerosis of skin L85.3 [facility] [address] [facility] [address] [place] [address] 06/15/2024 [facility] Jelani [address] [address] 06/15/2024 Arlene Jelani [address] [address] 06/18/2024 Arlene Palomares Assessments Encounter Date Diagnosis (ICD Code) Assessment Notes Treatment Notes Treatment Clinical Notes Section Notes 01/21/2024 Type 2 diabetes mellitus with diabetic polyneuropathy (ICD-10 - E11.42) 04/09/2024 Type 2 diabetes mellitus with diabetic polyneuropathy (ICD-10 - E11.42) 04/09/2024 Tinea unguium (ICD-10 - B35.1) 06/15/2024 Type 2 diabetes mellitus with diabetic polyneuropathy (ICD-10 - E11.42) 06/15/2024 Tinea unguium (ICD-10 - B35.1) 06/29/2024 Type 2 diabetes mellitus with diabetic polyneuropathy (ICD-10 - E11.42) 06/29/2024 Hammertoe of right foot (ICD-10 - M20.41) 09/14/2024 Type 2 diabetes mellitus with diabetic polyneuropathy (ICD-10 - E11.42) 09/14/2024 Tinea unguium (ICD-10 - B35.1) 11/30/2024 Type 2 diabetes mellitus with diabetic polyneuropathy (ICD-10 - E11.42) 11/30/2024 Tinea unguium (ICD-10 - B35.1) 06/29/2024 Cellulitis of toe of right foot (ICD-10 - L03.031) Resolved 06/15/2024 Cellulitis of toe of right foot (ICD-10 - L03.031) 01/21/2024 Pain in left foot (ICD-10 - M79.672) 01/21/2024 Osteoarthritis of midtarsal joint of left foot (ICD-10 - M19.072) 06/15/2024 Cutaneous abscess of right foot (ICD-10 - L02.611) 11/30/2024 Xerosis of skin (ICD-10 - L85.3) 06/29/2024 Cutaneous abscess of right foot (ICD-10 - L02.611) Resolved 06/29/2024 Medial crossover toe, right foot (ICD-10 - M20.5X1) 06/15/2024 Hammertoe of right foot (ICD-10 - M20.41) 01/21/2024 Pain in right foot (ICD-10 - M79.671) 06/15/2024 Medial crossover toe, right foot (ICD-10 - M20.5X1) 01/21/2024 Osteoarthritis of midtarsal joint of right foot (ICD-10 - M19.071) 06/29/2024 Hammer toe of left foot (ICD-10 - M20.42) 06/29/2024 Skin ulcer of toe of right foot, limited to breakdown of skin (ICD-10 - L97.511) 01/21/2024 Osteoarthritis of left ankle and foot (ICD-10 - M19.072) 01/21/2024 Hx of fracture (ICD-10 - Z87.81) 01/21/2024 Neuritis (ICD-10 - M79.2) 01/21/2024 Tinea unguium (ICD-10 - B35.1) Plan Of Treatment Pending Test Test Name Order Date *Wound Culture 06/15/2024 02591-MUCLCPJ NAIL, 6 OR MORE 06/15/2024 92641-PACWHKM NAIL, 6 OR MORE 09/14/2024 85172-TIMUVAS NAIL, 6 OR MORE 11/30/2024 37704-HBNQBBB NAIL, 6 OR MORE 09/02/2023 97116-PGYUBZI NAIL, 6 OR MORE 10/28/2023 19491-GZKMAYL NAIL, 6 OR MORE 01/21/2024 96363-FCRQSHD NAIL, 6 OR MORE 04/09/2024 06230- Debride <25 sq cm 10/28/2023 07641- Debride <25 sq cm 06/29/2024 60320 I&D ABSCESS- SIMPLE,SINGLE 024 19827-WCYA SKIN LESIONS, OVER 4 09/14/20 24 56990-FXBJ SKIN LESIONS, OVER 4 09/02/20 23 49150-LZXT SKIN LESIONS, OVER 4 11/30/19 25 60357-KKQO SKIN LESIONS, OVER 4 10/28/19 24 57026-MLNQ SKIN LESIONS, OVER 4 01/21/20 24 85874-UTSY SKIN LESIONS, OVER 4 06/15/20 24 34060-KZYW SKIN LESIONS, OVER 4 04/09/20 24 Next Appt Details Provider Name:Arlene Palomares , 02/09/2025 09:00:00 AM, [address] [facility], [place], [address], Insurance Providers Payer Name Payer Address Payer Phone Subscriber Number Group Number Insured Name Patient Relationship to Insured Coverage Start Date Coverage End Date [facility] [address] [place] [address] [phone] [id number] Woody Davila Self - patient is the insured Medical (General) History Medical History History ICD Code covid-19 Broken bones CAD (Cholesterol) Chicken pox High blood pressure Numbness Lyme disease ulcer Supraventricular tachycardia type 2 diabetic Surgical History Surgery Date(Month/Year) foot surgery 2018 neck surgery 2019 carpal tunnel surgery 2022 Left/Right Cabital 2022
--- OUTSIDE RECORDS SUMMARY | 2024-12-29 08:55 | XMS_ITS ---
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 Name Role Phone Leonarda Gandhi MD Primary Care Provider Unavaila ble Black, Arlene Unavailable [phone] Allergies Allergen (clinical drug ingredient) Drug/Non Drug Allergy documented on EMR Reaction Allergy Type Onset Date Status acetaminophen Tylenol only liquid form, rash Drug Allergy Active lisinopril Lisinopril Unknown Drug Allergy Activ e REASON FOR VISIT At Risk Footcare, Skin problem(s) Medications Medication SIG (Take, Route, Frequency, Duration) Notes Start Date End Date Status metFORMIN HCl 1000 MG 1 tablet with a me al Orally Once a day Not-Taking Extra Depth Orthopedic Shoes (1 Pair) with Customized Heat Molded Multidensity Innersoles (3 Pair) as directed Dx: NIDDM/Polyneuropathy (E11.42), Hammertoe Foot Deformity (M20.41,M20.42), Preulcerative Skin Lesion(s) (L85.1 06/29/2024 Active Ciprofloxacin HCl 500 MG 1 tablet Orally every 12 hrs for 7 days 06/18/2024 Not-Taking Cephalexin 500 MG 1 capsule Orally tatiana ry 8 hrs for 10 days Not-Taking Olmesartan Medoxomil 20 MG 1 tablet Orally Once a day Active Atorvastatin Calcium 20 MG 1 tablet Orally Once a day Active Social History Tobacco Use: Social History Observation Description Date Details (start date - stop date) Current Smoker NA - NA Tobacco Use/Smoking Question Answer Notes Are you a: current smoker How often do you smoke cigarettes? every day How many cigarettes a day do you smoke? 11-20 Alcohol Screen Question Answer Notes Did you have a drink containing alcohol in the p ast year? Yes Points 0 Interpretation Negative Tobacco use other than smoking: Question Answer Notes Are you an other tobacco user? No Problems Problem Type SNOMED Code ICD Code Onset Dates Problem Status W/U Status Risk Notes Problem [id number] Hammer toe of left foot (M20.42) Active confirmed Vital Signs Height 6ft 5 in in 06/29/2024 Weight 320 lbs 06/29/2024 BMI 37.94 kg/m2 06/29/2024 Procedures Procedure Date Ordered Date Performed Result Body Sit e 33516- Debride <25 sq cm 06/29/2024 N/A Encounters Encounter Location Date Provider Diagnosis [facility] [address] [address] 06/29/2024 Arlene Black Type 2 diabetes helen itus with diabetic polyneuropathy E11.42 ; Hammertoe of right foot M20.41 ; Cellulitis of toe of right foot L03.031 ; Cutaneous abscess of right foot L02.611 ; Medial crossover toe, right foot M20.5X1 ; Hammer toe of left foot M20.42 and Skin ulcer of toe of right foot, limited to breakdown of skin L97.511 Assessments Encounter Date Diagnosis (ICD Code) Assessment Notes Treatment Notes Treatment Clinical Notes Section Notes 06/29/2024 Type 2 diabetes mellitus with diabetic polyneuropathy (ICD-10 - E11.42) 06/29/2024 Hammertoe of right foot (ICD-10 - M20.41) 06/29/2024 Cellulitis of toe of right foot (ICD-10 - L03.031) Resolved 06/29/2024 Cutaneous abscess of right foot (ICD-10 - L02.611) Resolved 06/29/2024 Medial crossover toe, right foot (ICD-10 - M20.5X1) 06/29/2024 Hammer toe of left foot (ICD-10 - M20.42) 06/29/2024 Skin ulcer of toe of right foot, limited to breakdown of skin (ICD-10 - L97.511) Plan Of Treatment Medication Medication Name Sig Start Date Stop Date Notes Extra Depth Orthopedic Shoes (1 Pair) with Customized Heat Molded Multidensity Innersoles (3 Pair) as directed Dx: NIDDM/Polyneuropathy (E11.42), Hammertoe Foot Deformity (M20.41,M20.42), Preulcerative Skin Lesion(s) (L85.1 06/29/2024 Pending Test Test Name Order Date 67004- Debride <25 sq cm 06/29/2024 Next Appt Details Follow Up: 3 Weeks, Reason: Provider Name:Arlene Palomares , 02/09/2025 09:00:00 AM, [address] [facility], [place], [address], Procedure Notes * Category Sub-Category Detail Notes Debride skin< 25 sq cm Open wound NEUROPATH Y: Physician of record performed open wound selective debridement of first 25 sq cm or less, of devitilized necrotic/nonviable soft tissue, fibrin, and exudate extending from the epidermis through the dermis, utilizing sharp dissection with sterile 15 blade, and/or tissue nippers. Hemostasis was controlled through direct pressure. Sterile antibiotic dressing applied, ANESTHESIA was not required due to presence of NEUROPATHY. Post debridement measurements: 4 mm x 3_ mm x 1-2mm Progress Notes * Woody JORDANDOB:1975 (49 yo M)Acc No.[id number]:06/29/2024 Progress Notes Patient:?Woody JORDAN Provider:?Arlene KAREL Palomares :1975???Age:49 Y???Sex:Male Derian e:06/29/2024 Address:[address] [place], [place] [id number] Pcp:Leonarda Gandhi MD Subjective: * Chief Complaints: * ???At Risk FootcareSkin prob heike(s) * HPI: ???At Risk footcare:?Pt States Last PCP Visit:?Date?02/11/2024 ???Skin problems:?Nature:?redness, swelling , tender.?Location:?2nd , Right.?Duration:?, a few weeks.?Onset/Cause:?wearing dress shoes for his fathers .?Course:?, improved.?Treatments:?I&D, wound culture? and woundcare.? * ROS:?General/Constitutional:?Nausea?denies.?Vomiting?denies.?Hunger Thirst?denies.?Loss appetite?denies.?Chills?denies.?Fatigue?denies.?Fever?denies.?Night Sweats?denies.?Unexplained weight loss?denies.?Unexplained weight gain?denies.?HEENTM:?Dentures?denies.?Dizziness?denies.?Glasses/contacts?admits.?Retinopathy?de nies.?Blurred/double vision?denies.?TMJ?denies.?Discharge/drainage?denies.?Implants?denies.?Sore throat?denies.?Dental implants?denies.?Hard of hearing ?denies.?Difficulty chewing/swallowing/speaking?denies.?Nose bleeds?denies.?Sore mouth?denies.?Respiratory:?On Oxygen?denies.?Pneumonia/pleurisy?denies.?Bronchitis?denies.?Emphysema?denies.?C oughing?denies.?Cough blood?denies.?Shortness of breath?denies.?Wheezing?denies.?Cardiovascular:?Pacemaker?denies.?MVP?denies.?WPW?denies.?CHF?denies.?Heart attack?denies.?Septal defect?denies.?Rapid beat?denies.?Chest pain ?denies.?Atrial Fib.?denies.?Murmur/Palpitations?denies.?Gastrointestinal:?Hemorrhoids?denies.?Stomach/Abdominal pain?denies.?Dark blood stool?denies.?Irritable bowel ?denies.?Constipation?denies.?Diarrhea?admits.?Hematology:?Swelling?denies.?Clots?denies.?Varicose Veins?admits.?Bruising?denies.?Bleeding problem?denies.?Genitourinary:?Blood urine?denies.?Frequent/Painfu/urination/bladder control?denies.?Kidney stones?admits.?Infection (UTI)?denies.?Nephropathy?admits.?sex trans dis (STD)?denies.?Prostate?denies.?Musculoskeletal:?Hammertoes?denies.?Bunions?denies.?Back Pain?denies.?Muscle Cramps/ Resting?denies.?Muscle cramps / walking?denies.?Generalized aches and pains?denies.?Weakness?denies.?Integ.:?Molina?denies.?Scars?denies.?Corns/calluses?admits.?Ingrown nails?denies.?Painful nails?denies.?Open Sores?denies.?Rashes?denies.?Neurologic:?Difficulty sleeping?denies.?Brain disorder?denies.?Numbness?admits.?Balance trouble?denies.?Confusion?denies.?Fainting/blackouts?denies.?Tingling?denies.?Tr emors?denies.? * Medical History:? * Surgical History:?foot surge ry 2018neck surgery 2019carpal tunnel surgery 2022Left/Right Cabital 2022 * Hospitalization/Major Diagno stic Procedure:?No Hospitalization History. * Family History:?Mother: aliv e, stroke, heart attack, diagnosed with Family history of arthritis.?Father: alive, cancer.?Paternal Grand Father: cancer.?Maternal Grand Mother: heart attack.?Maternal Grand Father: cancer, heart attack.?Spouse: alive.? * Social History:?Tobacco Use:?Tobacco Use/Smoking?Are you a:?current smoker ?How often do you smoke cigarettes??every day ?How many cigarettes a day do you smoke??11-20 ?Tobacco use other than smoking?Are you an other tobacco user??No ???Drugs/Alcohol:?Drugs?Have you used drugs other than those for medical reasons in the past 12 months??No ?Alcohol Screen?Did you have a drink containing alcohol in the past year??Yes ?Points?0 ?Interpretation?Negative ???Miscellaneous:?Caffeine: yes, 3-5 cups per day. ?Exercise: yes, hunting, fishing, hiking. ?Marital status: . 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 * Medications:?TakingAtorvasta tin Calcium 20 MG Tablet 1 tablet Orally Once a day Olmesartan Medoxomil 20 MG Tablet 1 tablet Orally Once a day Taking Atorvastatin Calcium 20 MG Tablet 1 tablet Orally Once a day Taking Olmesartan Medoxomil 20 MG Tablet 1 tablet Orally Once a day Not-Taking/PRNCephalexin 500 MG Capsule 1 capsule Orally every 8 hrs Ciprofloxacin HCl 500 MG Tablet 1 tablet Orally every 12 hrs metFORMIN HCl 1000 MG Tablet 1 tablet with a meal Orally Once a day Medication List reviewed and reconciled with the patientNot-Taking/PRN Cephalexin 500 MG Capsule 1 capsule Orally every 8 hrs Not-Taking/PRN Ciprofloxacin HCl 500 MG Tablet 1 tablet Orally every 12 hrs Not-Taking/PRN metFORMIN HCl 1000 MG Tablet 1 tablet with a meal Orally Once a day Medication List reviewed and reconciled with the patient * Allergies:?Tylenol: only liq uid form, Chuckyyes[Allergies Verified] Objective: * Vitals:?Ht:6ft 5 in, Wt:320, BMI:37.94, Shoe size:13, BS:Doesn't test, Ht-cm: 195.58 cm, Wt-k.15 kg. * Examination: ???Ophthalmology Referral: ?DIABETES EYE EXAM?Diabetic Retinopathy Screening:?No?General Examination: ?GENERAL APPEARANCE:?Reveals a pleasant, alert, well nourished, well- developed, well hydrated individual, who demonstrates proper attention to hygiene/body habitus, and is in no acute distress, Pt serves as own historian for office visit today , Denies fever, chills, malaise, lymphadenopathy.?ORIENTED:?person, place, and time.?Neurological: ?SENSORY:? Neurological exam demonstrates, reduced light touch sensation, reduced sharp/dull pin prick discrimination , B/L, 5.07 monofilament test performed at plantar aspects of 5 varied sites per foot shows sensation, reduced , B/L.?Vascular: ?DP PULSES (B):?2/4, B/L.?PT PULSES (B):?2/4, B/L.?Dermatologic: ?SKIN FINDINGS:?Skin exam reveals Keratotic lesion(s) located at , Plantar , IPJ , T5 , Midfoot , B/L , SUB MTH (s) , 5 , Left , Skin shows sign(s) of, RESOLVED loccalized cellulitis without lymphangitis extending proximally to the level of the MPJ T6 , Skin shows sign(s) of ,resolved??abscess dorsal PIPJ T6.?ULCER:?Dorsal , T6 , LOCATION, SIZE, 3mm X 3mm X 2mm, BASE, granular, RIM, hyperkeratotic, UNDERMINING, absent, TRACKING, Full thickness breakdown of skin, DRAINAGE, serosanguineous, mild, NECROTIC TISSUE, loosely-adherent, yellow slough, MALODOR, absent, CALOR, absent, ERYTHEMA, absent, PAIN ON PALPATION, absent.?Orthopedic: ?DIGITAL DEFORMITIES:?Digital contracture, PIPJ, 2-right, non-reducible with WB or to push-up test, medial cross over onto T5 , Reveals swelling/redness/enlargement of PIPJ T6,T7,T8.? Assessment: * Assessment: 1.?Type 2 diabetes mellitus with diabetic polyneuropathy - E11.42???2.?Hammertoe of right foot - M20.41 (Primary)???3.?Cellulitis of toe of right foot - L03.031???Notes :Resolved???4.?Cutaneous abscess of right foot - L02.611???Notes :Resolved???5.?Medial crossover toe, right foot - M20.5X1???6.?Hammer toe of left foot - M20.42???7.?Skin ulcer of toe of right foot, limited to breakdown of skin - L97.511??? Plan: * Treatment: 2.?Skin ulcer of toe of righ t foot, limited to breakdown of skin?Procedure: 24194- Debride <25 sq cm * Procedures:?Debride skin< 25 sq cm:?Open wound?NEUROPATHY: Physician of record performed open wound selective debridement of first 25 sq cm or less, of devitilized necrotic/nonviable soft tissue, fibrin, and exudate extending from the epidermis through the dermis, utilizing sharp dissection with sterile 15 blade, and/or tissue nippers. Hemostasis was controlled through direct pressure. Sterile antibiotic dressing applied, ANESTHESIA was not required due to presence of NEUROPATHY. Post debridement measurements: 4 mm x 3_ mm x 1-2mm.? * Procedure Codes:?37876 ACTIV E WOUND CARE/20 CM OR <, Modifiers: XS * Preventive Medicine:? ??Counseling:?Tobacco use:?Type of Tobacco Use Cessation Counseling provided?Smoking cessation education ?Patient counseled on the dangers of smoking and urged to quit:?06/29/2024 ?Discussion:?-14: Office or other outpatient visit for the evaluation and management of an established patient, which required a medically appropriate history and/or examination and MODERATE level of DECISION MAKING for: 1 OR MORE CHRONIC PROBLEM(S) THATS WORSENING, 2 STABLE CHRONIC PROBLEMS, A NEWLY DIAGNOSED PROBLEM WITH UNCERTAIN PROGNOSIS, AN ACUTE COMPLICATED INJURY WITH MULTIPLE TREATMENT OPTIONS, OR AN ACUTE PROBLEM WITH ACCOMPANYING SYSTEMIC SYMPTOMS, THAT POSE(S) A MODERATE RISK OF MORBIDITY. THIS CONDITION MAY ALSO INCLUDE RX DRUG MANAGEMENT, OR A DECISON FOR MINOR SURGERY. The visit on the day of the encounter encompassed interpreting the data and educating the patient as to the nature of their condition, treatment options available according to their individual PMH, meds, allergies, and overall health/living conditions, as well as any potential risks or complications that may occur from a failure to adhere to, and participate in, the recommended course of therapy. The discussion included a complete verbal, and/or written explanation of the examination results, any x-rays taken, the proposed diagnosis, and outline of the treatment plan. A schedule for future care needs was also explained. The patient verbalized an understanding of the instructions at this time and agreed to be an active participant in their treatment. If the patient should think of any questions or concerns after the visit, I have encouraged the patient to call the office.?Cellulitis/Lymphangitis?Given recent successful results to treatment, The patient is to continue the plan as directed.?Digital Surgery:?Digital surgery was discussed with the patient, including the risks of surgery(below), vs not having surgery (persistent pain, deformity, risk for skin ulceration/infection, loss of toe), the potential surg complications, the anesthesia, and the usual post-op course. No guarentees were given. We discussed the potential procedure complications including, but not limited to: pain, swelling, bleeding, scarring, numbness, infection, delayed/non healing, floppy/unstable/shorthened toe, recurrence, failure of the procedure, overcorrection leading to plantarflexed/downward positioned toe, recurrence, need for further surgery, as well as the possibility for loss of the toe itself. We discussed the use of local anesthesia, and the usual post-op course for healing. No guarentees were given. The patient verbally indicated a full understanding of the above conversation, and any other of their questions were answered to their satisfaction. Alternatives to the procedure were also discussed, including conservative care. I also discussed the usual post-operative course and gave no guarantees regarding outcome, We elected to try conservative treatment at the present time.?Digital Treatment:?HT- I explained to the patient the possible etiologies of Hammertoes, including genetics/foot type/shoegear/activity level/exercise routine and the risks/benefits of all the different treatment options for their pain including: No treatment at all, Rest, Ice, New/supportive/wider/deeper Shoegear, Digital Padding/Strapping/Taping/Bracing/Gel protective sleeves, Foot/Ankle AFO Bracing, Stretching exercises, Deep Tissue Massage, Arch support/shoe inserts with splay metatarsal padding, and Custom orthoses. I insisted that any digital devices be removed daily and not worn overnight for safety. The patient is to carefully examine the toes daily for any skin irritation while using any splinting or padding device. The advantages and disadvantages of each option were discussed and the patients questions re: shoegear, padding, custom vs prefabricated inserts, activity level, and consistency in home treatment regimens for optimal success were answered to their verbally confirmed satisfaction, Rx: Extra Depth Diabetic Shoes with 3 pair of custom heat-molded inserts.?Ulcer:?A detailed plan of care was reviewed with the patient. We emphasized the fact that the patient takes on an active participating role in the treatment process and emphasized to them that they are an included, valued, and important member of the wound healing team in order to reach an expedient successful outcome. The patient agreed to follow their medically recommended diet while increasing their protein intake if safely able to do so, maintain proper bodily hydaration, abide by weight-bearing restrictions at all times, quit all current smoking habits if any, and diligently follow any/all dressing change instructions. It was clearly made known to the patient that if they fail to do their part, they will likely extend their course of treatment as well as possibly increase their risk of adverse events including amputation. The patient was instructed on importance of proper wound care consisting of pressure reduction, and proper maintainance of a moist wound environment. The patient is to cleanse the wound with warm soapy water/peroxide/saline, or betadine BID based on product availability. The patient is to apply ( Neosporin, Polysporin, or Triple) Antibiotic to the wound and cover with a DSD as directed. The patient was instructed to change dressings according to orders, or PRN saturation, leaks. The patient was instructed to monitor and report any signs or symptoms of infection or any untoward reactions. Precautions Taken: Offloading/Pressure reduction via rest/ limited activity to essential to daily life only, cane/ crutches/ walker/ knee scooter/ wheel chair, shoe modification, accommodative padding, sharp debridement, and take/apply medication as directed. THE GOALS of wound debridement to remove devitilized tissue, decrease risk for infection, promote wound healing and prevent further complication were discussed/reviewed. Debridement frequency as indicated, Every 3-4 weeks until healed.? * Follow Up:?3 Weeks * Images: * Sign off status: Completed true * Provider:?Arlene Palomares DPM Date:?2023 Generated for Olman jerez/Georgina/Maddie on:?12/29/2024 08:55 AM EST History and Physical Notes * HPI (History of Present Illness) Category Sub-Category Detail Notes Category Not es Skin problems Nature: redness , swelling , tender Location: 2nd , Right Duration: , a few weeks Onset/Cause: wearing dress shoes for his fathers Course: , improved Treatments: I&D, wound culture a nd woundcare At Risk footcare Pt States Last PCP Visit: Date: 4 Examination Category Sub-Category Detail Notes Category Not es Neurological SENSORY: Neurological exa m demonstrates, reduced light touch sensation, reduced sharp/dull pin prick discrimination , B/L, 5.07 monofilament test performed at plantar aspects of 5 varied sites per foot shows sensation, reduced , B/L TINEL'S COMPRESSION: Dermatologic SKIN FINDINGS: Skin exam reveal s Keratotic lesion(s) located at , Plantar , IPJ , T5 , Midfoot , B/L , SUB MTH (s) , 5 , Left , Skin shows sign(s) of, RESOLVED loccalized cellulitis without lymphangitis extending proximally to the level of the MPJ T6 , Skin shows sign(s) of ,resolved abscess dorsal PIPJ T6 ULCER: Dorsal , T6 , LOCATI ON, SIZE, 3mm X 3mm X 2mm, BASE, granular, RIM, hyperkeratotic, UNDERMINING, absent, TRACKING, Full thickness breakdown of skin, DRAINAGE, serosanguineous, mild, NECROTIC TISSUE, loosely- adherent, yellow slough, MALODOR, absent, CALOR, absent, ERYTHEMA, absent, PAIN ON PALPATION, absent Orthopedic DIGITAL DEFORMITIES: Digital con tracture, PIPJ, 2-right, non-reducible with WB or to push-up test, medial cross over onto T5 , Reveals swelling/redness/enlargement of PIPJ T6,T7,T8 General Examination GENERAL APPEARANCE: Reveals a pleasant, alert, well nourished, well-developed, well hydrated individual, who demonstrates proper attention to hygiene/body habitus, and is in no acute distress, Pt serves as own historian for office visit today , Denies fever, chills, malaise, lymphadenopathy ORIENTED: person, place, and t lonnie Ophthalmology Referral DIABETES EYE EXAM Diabetic Retinopa thy Screening:: No Vascular DP PULSES (B): 2/4, B/L PT PULSES (B): 2/4, B/L
--- OUTSIDE RECORDS SUMMARY | 2024-12-29 08:55 | XMS_ITS ---
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 Role Phone Leonarda Gandhi MD Primary Care Provider Unavaila karen Black, Arlene Unavailable [phone] Allergies Allergen (clinical drug ingredient) Drug/Non Drug Allergy documented on EMR Reaction Allergy Type Onset Date Status acetaminophen Tylenol only liquid form, rash Drug Allergy Active lisinopril Lisinopril Unknown Drug Allergy Activ e REASON FOR VISIT At Risk Footcare Medications Medication SIG (Take, Route, Frequency, Duration) Notes Start Date End Date Status Atorvastatin Calcium 20 MG 1 tablet Orally Once a day Active Olmesartan Medoxomil 20 MG 1 tablet Orally Once a day Active Extra Depth Orthopedic Shoes (1 Pair) with Customized Heat Molded Multidensity Innersoles (3 Pair) as directed Dx: NIDDM/Polyneuropathy (E11.42), Hammertoe Foot Deformity (M20.41,M20.42), Preulcerative Skin Lesion(s) (L85.1 06/29/2024 Active Ciprofloxacin HCl 500 MG 1 tablet Orally every 12 hrs for 7 days 06/18/2024 Not-Taking metFORMIN HCl 1000 MG 1 tablet with a me al Orally Once a day Not-Taking Cephalexin 500 MG 1 capsule Orally tatiana ry 8 hrs for 10 days Not-Taking Social History Tobacco Use: Social History Observation [...] year? Yes How often did you have six o r more drinks on one occasion in the past year? Less than monthly (1 point) How many drinks did you have on a typical day when you were drinking in the past year? Declined to specify (0 point) How often did you have a dri nk containing alcohol in the past year? Monthly or less (1 point) Points 2 Interpretation Negative Vital Signs Height 6ft 5in in 09/14/2024 Weight 320 lbs 09/14/2024 BMI 37.94 kg/m2 09/14/2024 Blood pressure systolic 110 mm Hg 09/14/20 24 Blood pressure diastolic 70 mm Hg 024 Procedures Procedure Date Ordered Date Performed Result Body Sit e 51457-UJUGRCD NAIL, 6 OR MORE 09/14/2024 N/A 03457-DHBM SKIN LESIONS, OVER 4 09/14/2024 N/A Encounters Encounter Location Date Provider Diagnosis [facility] [place] [address] [place] [address] 09/14/2024 Arlene Palomares Type 2 diabetes helen itus with diabetic polyneuropathy E11.42 and Tinea unguium B35.1 Assessments Encounter Date Diagnosis (ICD Code) Assessment Notes Treatment Notes Treatment Clinical Notes Section Notes 09/14/2024 Type 2 diabetes mellitus with diabetic polyneuropathy (ICD-10 - E11.42) 09/14/2024 Tinea unguium (ICD-10 - B35.1) Plan Of Treatment Pending Test Test Name Order Date 33790-[id number] NAIL, 6 OR MORE 09/14/2024 82359-XACH SKIN LESIONS, OVER 4 09/14/20 24 Next Appt Details Follow Up: 2 Months, Reason: Provider Name:Arlene Palomares , 02/09/2025 09:00:00 AM, [address], [place], [address], Procedure Notes * Category Sub-Category Detail Notes Debride Nail 6-10 Nail debridement Nail debridem ent performed extensively to reduce/remove overall nail length and girth, subungual debris, and necrotic tissue, by manual and electrical means with use of a nail nipper and/or dremel, to more viable healthy nail plate or bed tissue 6-10. Silver nitrate used for any petechial bleeding as necessary. Patient chooses, no pharmaceutical tx (32061) Keratoma Treatment Parring or Cutting o f Benign Hyperkeratotic Lesion(s) 24516 ( More than 4 Lesions ) - The Benign hyperkeratotic lesions, as described above were pared, and/or cut utilizing a sterile 15 blade, tissue nippers, and/or dremel Progress Notes * NEDA WoodyDOB:1975 (49 yo M)Acc No.[id number]:09/14/2024 Progress Note Patient:?Woody JORDAN Provider:?Arlene Palomares DPM :1975???Age:49 Y???Sex:Male Derian e:09/14/2024 Address:[address] [place], [place] [id number] Pcp:Leonarda Gandhi MD Subjective: * Chief Complaints: * ???At Risk Footcare * HPI: ???At Risk footcare:?Pt States Last PCP Visit:?Date?09/13/2024 * ROS:?General/Constitutional:?Nausea?denies.?Vomiting?denies.?Hunger Thirst?denies.?Loss appetite?denies.?Chills?denies.?Fatigue?denies.?Fever?denies.?Night Sweats?denies.?Unexplained weight loss?denies.?Unexplained [...] Medical History:? * Surgical History:?foot surge ry 2017neck surgery 2019carpal tunnel surgery 2022Left/Right Cabital 2022 * Hospitalization/Major Diagno stic Procedure:?Denies Past Hospitalization * Family History:?Mother: josey e, stroke, heart attack, diagnosed with Family history of arthritis.?Father: , cancer.?Paternal Grand Father: cancer.?Maternal Grand Mother: heart attack. Maternal Grand Father: cancer, heart attack.?Spouse: alive.? * Social History:?Tobacco Use:?Tobacco use other than smoking?Are you an other tobacco user??No ?Tobacco Control (Standard)?Tobacco use:?Current smoker ?How often do you smoke cigarettes??Every day ?How many cigarettes a day do you smoke??6-10 ?How soon after you wake up do you smoke your first cigarette??6-30 minutes ?Are you interested in quitting??Thinking about quitting ???Drugs/Alcohol:?Drugs?Have you used drugs other than those for medical reasons in the past 12 months??No ???Miscellaneous:?Caffeine: yes, 3-5 cups per day. ?Children: no. ?Exercise: yes, hunting, fishing, hiking. ?Marital status: . 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 ???Drug/Alcohol:?AUDIT-C (Standard)?Did you have a drink containing alcohol in the past year??Yes ?How often did you have six or more drinks on one occasion in the past year??Less than monthly (1 point) ?How many drinks did you have on a typical day when you were drinking in the past year??Declined to specify (0 point) ?How often did you have a drink containing alcohol in the past year??Monthly or less (1 point) ?Points?2 ?Interpretation?Negative * Medications:?TakingAtorvasta tin Calcium 20 MG Tablet 1 tablet Orally Once a day Olmesartan Medoxomil 20 MG Tablet 1 tablet Orally Once a day Extra Depth Orthopedic Shoes (1 Pair) with Customized Heat Molded Multidensity Innersoles (3 Pair) as directed Dx: NIDDM/Polyneuropathy (E11.42), Hammertoe Foot Deformity (M20.41,M20.42), Preulcerative Skin Lesion(s) (L85.1 Taking Atorvastatin Calcium 20 MG Tablet 1 tablet Orally Once a day Taking Olmesartan Medoxomil 20 MG Tablet 1 tablet Orally Once a day Taking Extra Depth Orthopedic Shoes (1 Pair) with Customized Heat Molded Multidensity Innersoles (3 Pair) as directed Dx: NIDDM/Polyneuropathy (E11.42), Hammertoe Foot Deformity (M20.41,M20.42), Preulcerative Skin Lesion(s) (L85.1 Not-Taking/PRNCephalexin 500 MG Capsule 1 capsule Orally [...] patient * Allergies:?Tylenol: only liq uid form, rashLisinoprilyes[Allergies Verified] Objective: * Vitals:?Ht: 6ft 5in, Wt:320, BMI:37.94, Shoe size: 13, BP:110/70mm Hg, BS: Doesnt test, Ht-cm: 195.58 cm, Wt-k.15 kg. * ???Past Orders: ???Lab:HEMOGLOBIN A1C (GLYCO HEMOGLOBIN) (Order Date - 09/13/2024) (Collection Date & Time - 09/13/2024 09:32 AM) ? Value Reference Range ?TOTAL HEMOGLOBIN (HGBA1C) 6.2 * Examination: ???Ophthalmology Referral: ?DIABETES EYE EXAM?Procedure Performed:?No ?Findings of Diabetic Eye Exam:?no retinopathy?General Examination: ?GENERAL APPEARANCE:?Reveals a pleasant, alert, well nourished, well- developed, well hydrated individual, who demonstrates proper attention to hygiene/body habitus, and is in no acute distress, Pt serves as own historian for office visit today ,?.?ORIENTED:?person, place, and time.?Neurological: ?SENSORY:? Neurological exam demonstrates, reduced light touch sensation, reduced sharp/dull pin prick discrimination , B/L, 5.07 monofilament test performed at plantar aspects of 5 varied sites per foot shows sensation, reduced , B/L.?Vascular: ?DP PULSES(B):?2/4, B/L.?PT PULSES(B):?2/4, B/L.?Dermatologic: ?SKIN FINDINGS:?Skin exam reveals Keratotic lesion(s) located at , Plantar , IPJ , T5IPJ,TA, , Medial-plantar, Midfoot , B/L , SUB MTH (s) , 5 , , Left, T8, Plantar.?Nails: ?NAILS are:?Elongated, overgrown, dystrophic, lytic, greater than 3mm thick, discolored and friable with crumbly malodorous subungual debris , with dull to no pain on palpation due to neuropathy ,, T1,T2, T3, T4, T6,T7, T9.? Assessment: * Assessment: 1.?Type 2 diabetes mellitus with diabetic polyneuropathy - E11.42 (Primary)???2.?Tinea unguium - B35.1??? Plan: * Treatment: 2.?Tinea unguium?Procedure: 94952-BLUGXCW NAIL, 6 OR MORE * Procedures:?Debride Nail 6-10:?Nail debridement?Nail debridement performed extensively to reduce/remove overall nail length and girth, subungual debris, and necrotic tissue, by manual and electrical means with use of a nail nipper and/or dremel, to more viable healthy nail plate or bed tissue 6-10. Silver nitrate used for any petechial bleeding as necessary. Patient chooses, no pharmaceutical tx (80612).?Keratoma Treatment:?Parring or Cutting of Benign Hyperkeratotic Lesion(s)?66946 ( More than 4 Lesions ) - The Benign hyperkeratotic lesions, as described above were pared, and/or cut utilizing a sterile 15 blade, tissue nippers, and/or dremel.? * Procedure Codes:?71320 DEBRI DE NAIL, 6 OR MORE, Modifiers: XS 25359 TRIM SKIN LESIONS, OVER 4, Modifiers: XS * Follow Up:?2 Months * Images: * Sign off status: Completed true * Provider:?Arlene Palomares DPM Date:?2023 Generated for Olman jerez/Georgina/Maddie on:?12/29/2024 08:55 AM EST History and Physical Notes * HPI (History of Present Illness) Category Sub-Category Detail Notes Category Not es At Risk footcare Pt States Last PCP [...] located at , Plantar , IPJ , T5IPJ,TA, , Medial-plantar, Midfoot , B/L , SUB MTH (s) , 5 , , Left, T8, Plantar ULCER: Orthopedic DIGITAL DEFORMITIES: General Examination GENERAL APPEARANCE: Reveals a pleasant, alert, well nourished, well-developed, well hydrated individual, who demonstrates proper attention to hygiene/body habitus, and is in no acute distress, Pt serves as own historian for office visit today , ORIENTED: person, place, and t lonnie Ophthalmology Referral DIABETES EYE EXAM Procedure Perform ed:: No Findings of Diabetic Eye Exam:: no retin opathy Vascular DP PULSES (B): 2/4, B/L PT PULSES (B): 2/4, B/L Nails NAILS are: Elongated, overg rown, dystrophic, lytic, greater than 3mm thick, discolored and friable with crumbly malodorous subungual debris , with dull to no pain on palpation due to neuropathy ,, T1,T2, T3, T4, T6,T7, T9
--- OUTSIDE RECORDS SUMMARY | 2024-12-29 08:55 | XMS_ITS ---
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 Name Role Phone Leonarda Gandhi MD Primary Care Provider Unavaila ble Black, Arlene Unavailable [phone] Allergies Allergen (clinical drug ingredient) Drug/Non Drug [...] (M20.41,M20.42), Preulcerative Skin Lesion(s) (L85.1 06/29/2024 Active metFORMIN HCl ER 750 MG Oral for 90 Days Active metFORMIN HCl 1000 MG 1 tablet with a me al Orally Once a day Not-Taking Olmesartan Medoxomil 20 MG 1 tablet Orally Once a day Active Ammonium Lactate 12 % 1 application Exte rnally to affected areas of dry skin to feet except for between the toes Twice a day for 30 days Active Atorvastatin Calcium 20 MG 1 tablet [...] monthly (1 point) Points 2 Interpretation Negative Vital Signs Height 6ft 5in in 11/30/2024 Weight 320 lbs 11/30/2024 BMI 37.94 kg/m2 11/30/2024 Blood pressure systolic 110 mm Hg 11/30/19 25 Blood pressure diastolic 71 mm Hg 025 Procedures Procedure Date Ordered Date Performed Result Body Sit e 60332-PWSTGHN NAIL, 6 OR MORE 11/30/2024 N/A 62692-CYMS SKIN LESIONS, OVER 4 11/30/2024 N/A Encounters Encounter Location Date Provider Diagnosis [facility] [address] 11/30/2024 Arlene Black Type 2 diabetes helen itus with diabetic polyneuropathy E11.42 ; Tinea unguium B35.1 and Xerosis of skin L85.3 Assessments Encounter Date Diagnosis (ICD Code) Assessment Notes Treatment Notes Treatment Clinical Notes Section Notes 11/30/2024 Type 2 diabetes mellitus with diabetic polyneuropathy (ICD-10 - E11.42) 11/30/2024 Tinea unguium (ICD-10 - B35.1) 11/30/2024 Xerosis of skin (ICD-10 - L85.3) Plan Of Treatment Medication Medication Name Sig Start Date Stop Date Notes Ammonium Lactate 12 % 1 application Exte rnally to affected areas of dry skin to feet except for between the toes Twice a day for 30 days Pending Test Test Name Order Date 93401-FDNXBQC NAIL, 6 OR MORE 11/30/2024 73327-ISKY SKIN LESIONS, OVER 4 11/30/19 25 Next Appt Details Follow Up: 2 Months, Reason: Provider Name:Arlene Palomares , 02/09/2025 09:00:00 AM, [address] [facility], [place], [address], Procedure Notes * Category Sub-Category Detail Notes Debride Nail 6-10 Nail debridement Due to the cl inical pathology outlined in the exam findings, performance of this nail treatment is medically necessary as its management by an unskilled/untrained nonprofessional would put this patients foot and overall health at risk. Therefore, debridement to affected nail(s), as described in exam ( T1,T2, T3, T4, T6,T7, T9 ), was performed exclusively by the physician of record to reduce/remove overall nail length, girth, thickness, subungual debris, and necrotic tissue, by manual and/or electrical means through the use of a nail nipper and/or dremel-type metal grinder, to a more viable healthy nail plate or bed tissue 6-10 nails in total. Silver nitrate was used for any petechial bleeding as necessary. Definitive antifungal treatment options, both pharmaceutical and surgical, have been reviewed and discussed with the patient. The patient solely prefers the use of intermittent/as needed professional debridement services for their nail condition and understands the need for additional periodic treatments to maintain effectiveness in symptomatic relief - 95877 Keratoma Treatment Parring or Cutting o f Benign Hyperkeratotic Lesion(s) (-57) More than 4 Lesions - Due to the at risk nature of the patients medical condition as documented in the exam findings, performance of this keratoderma treatment is medically necessary as its management by an unskilled/untrained nonprofessional would put this patients foot and overall health at risk. Therefore, the benign hyperkeratotic lesions, ( 6 ) in total, locations as stated and described in the exam ( Plantar , IPJ , T5IPJ,TA, , Medial-plantar, Midfoot , B/L , SUB MTH (s) , 5 , , Left, T8, Plantar ), were pared, and/or cut utilizing a sterile 15 blade, tissue nippers, and/or power dremel instrumentation by the physician of record - 22913 Progress Notes * Woody JORDANDOB:1975 (49 yo M)Acc No.[id number]:11/30/2024 Progress Note Patient:?Woody JORDAN Provider:?Arlene Palomares DPM :1975???Age:49 Y???Sex:Male Derian e:11/30/2024 Address:[address] [place], [place] [id number] Pcp:Leonarda Gandhi MD Subjective: * Chief Complaints: * ???At Risk FootcareSkin prob heike(s) * HPI: ???At Risk footcare:?Pt States Last PCP Visit:?Date?11/02/2024 ???Skin problems:?Nature:?dryness , scaling.?Location:?B/L .?Duration:?several days.?Course:?worse.? * ROS:?General/Constitutional:?Nausea?denies.?Vomiting?denies.?Hunger Thirst?denies.?Loss appetite?denies.?Chills?denies.?Fatigue?denies.?Fever?denies.?Night Sweats?denies.?Unexplained weight loss?denies.?Unexplained weight gain?denies.?HEENTM:?Dentures?denies.?Dizziness?denies.?Glasses/contacts?admits.?Retinopathy?den ies.?Blurred/double vision?denies.?TMJ?denies.?Discharge/drainage?denies.?Implants?denies.?Sore throat?denies.?Dental implants?denies.?Hard of hearing ?denies.?Difficulty chewing/swallowing/speaking?denies.?Nose bleeds?denies.?Sore mouth?denies.?Respiratory:?On O xygen?denies.?Pneumonia/pleurisy?denies.?Bronchitis?denies.?Emphysema?denies.?Co ughing?denies.?Cough blood?denies.?Shortness of breath?denies.?Wheezing?denies.?Cardiovascular:?Pacemaker?denies.?MVP?denies.?WPW?denies.?CHF?denies.?Heart attack?denies.?Septal defect?denies.?Rapid beat?denies.?Chest pain ?denies.?Atrial Fib.?denies.?Murmur/Palpitations?denies.?Gastrointestinal:?Hemorrhoids?denies.?Stomach/Abdominal pain?denies.?Dark blood stool?denies.?Irritable bowel ?denies.?Constipation?denies.?Diarrhea?admits.?Hematology:?Swelling?denies.?Clots?denies.?Varicose Veins?admits.?Bruising?denies.?Bleeding problem?denies.?Genitourinary:?Blood urine?denies.?Frequent/Painfu/urination/bladder control?denies.?Kidney stones?admits.?Infection (UTI)?denies.?Nephropathy?admits.?sex trans dis (STD)?denies.?Prostate?denies.?Musculoskeletal:?Hammertoes?, admits.?Bunions?denies.?Back Pain?denies.?Muscle Cramps/ Resting?denies.?Muscle cramps / walking?denies.?Generalized aches and pains?denies.?Weakness?denies.?Integ.:?Molina?denies.?Scars?denies.?Corns/calluses?admits.?Ingrown nails?denies.?Painful nails?denies.?Open Sores?denies.?Rashes?denies.?Neurologic:?Difficulty sleeping?denies.?Brain disorder?denies.?Numbness?admits.?Balance t rouble?denies.?Confusion?denies.?Fainting/blackouts?denies.?Tingling?denies.?Angel mors?denies.? * Medical History:? * Surgical History:?foot surge ry 2018neck surgery 2019carpal tunnel surgery 2022Left/Right Cabital 2022 * Hospitalization/Major Diagno stic Procedure:?Denies Past Hospitalization * Family History:?Mother: josey reid, stroke, heart attack, diagnosed with Family history [...] fishing, hiking. ?Marital status: . 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 ???Drug/Alcohol:?AUDIT-C (Standard)?Did you have a drink containing alcohol in the past year??Yes ?How often did you have a drink containing alcohol in the past year??Monthly or less (1 point) ?How many drinks did you have on a typical day when you were drinking in the past year??Declined to specify (0 point) ?How often did you have six or more drinks on one occasion in the past year??Less than monthly (1 point) ?Points?2 ?Interpretation?Negative * Medications:?TakingAtorvasta tin Calcium 20 MG Tablet 1 tablet Orally Once a day Olmesartan Medoxomil 20 MG Tablet 1 tablet Orally Once a day Extra Depth Orthopedic Shoes (1 Pair) with Customized Heat Molded Multidensity Innersoles (3 Pair) as directed Dx: NIDDM/Polyneuropathy (E11.42), Hammertoe Foot Deformity (M20.41,M20.42), Preulcerative Skin Lesion(s) (L85.1 metFORMIN HCl ER 750 MG Tablet Extended Release 24 Hour Oral Taking Atorvastatin Calcium 20 MG Tablet 1 tablet Orally Once a day Taking Olmesartan Medoxomil 20 MG Tablet 1 tablet Orally Once a day Taking Extra Depth Orthopedic Shoes (1 Pair) with Customized Heat Molded Multidensity Innersoles (3 Pair) as directed Dx: NIDDM/Polyneuropathy (E11.42), Hammertoe Foot Deformity (M20.41,M20.42), Preulcerative Skin Lesion(s) (L85.1 Taking metFORMIN HCl ER 750 MG Tablet Extended Release 24 Hour Oral Not-Taking/PRNCephalexin 500 MG Capsule 1 capsule Orally [...] 6ft 5in, Wt:320, BMI:37.94, Shoe size: 13, BP:110/71mm Hg, BS: doesnt test, Ht-cm: 195.58 cm, Wt-k.15 kg. * ???Past Orders: ???Lab:HEMOGLOBIN A1C (GLYCO HEMOGLOBIN) (Order Date - 11/03/2024) (Collection Date & Time - 11/03/2024 08:53 AM) ? Value Reference Range ?HEMOGLOBIN A1C % (HH) 5.9 * Examination: ???Ophthalmology Referral: ?DIABETES EYE EXAM?Procedure Performed:?Yes ?Date of Exam Performed?11/01/2024 ?Diabetic Retinopathy Screening:?Yes ?Findings of Diabetic Eye Exam:?no retinopathy?General Examination: [...] , 5 , , Left, T8, Plantar , Skin shows sign(s) of, dryness, scaling, in a stocking fashion, no fissure(s) present, B/L.?Nails: ?NAILS are:?Elongated, overgrown, dystrophic, lytic, greater than 3mm thick, discolored and friable with crumbly malodorous subungual debris , with dull to no pain on palpation due to neuropathy ,, T1,T2, T3, T4, T6,T7, T9.? Assessment: * Assessment: 1.?Type 2 diabetes mellitus with diabetic polyneuropathy - E11.42 (Primary)???2.?Tinea unguium - B35.1???3.?Xerosis of skin - L85.3???Specify :Acute problem, Uncomplicated (3),Rx Management (4)??? Plan: * Treatment: 2.?Tinea unguium?Procedure: 19088-CEZAMRC NAIL, 6 OR MORE 3.?Xerosis of skin? Start Ammonium Lactate Cream, 12 %, 1 application, Externally to affected areas of dry skin to feet except for between the toes, Twice a day, 30 days, 280, Refills 3.?? * Procedures:?Debride Nail 6-10:?Nail debridement?Due to the clinical pathology outlined in the exam findings, performance of this nail treatment is medically necessary as its management by an unskilled/untrained nonprofessional would put this patients foot and overall health at risk. Therefore, debridement to affected nail(s), as described in exam ( T1,T2, T3, T4, T6,T7, T9 ), was performed exclusively by the physician of record to reduce/remove overall nail length, girth, thickness, subungual debris, and necrotic tissue, by manual and/or electrical means through the use of a nail nipper and/or dremel-type metal grinder, to a more viable healthy nail plate or bed tissue 6-10 nails in total. Silver nitrate was used for any petechial bleeding as necessary. Definitive antifungal treatment options, both pharmaceutical and surgical, have been reviewed and discussed with the patient. The patient solely prefers the use of intermittent/as needed professional debridement services for their nail condition and understands the need for additional periodic treatments to maintain effectiveness in symptomatic relief - 11316.?Keratoma Treatment:?Parring or Cutting of Benign Hyperkeratotic Lesion(s)?(-57) More than 4 Lesions - Due to the at risk nature of the patients medical condition as documented in the exam findings, performance of this keratoderma treatment is medically necessary as its management by an unskilled/untrained nonprofessional would put this patients foot and overall health at risk. Therefore, the benign hyperkeratotic lesions, ( 6 ) in total, locations as stated and described in the exam ( Plantar , IPJ , T5IPJ,TA, , Medial-plantar, Midfoot , B/L , SUB MTH (s) , 5 , , Left, T8, Plantar ), were pared, and/or cut utilizing a sterile 15 blade, tissue nippers, and/or power dremel instrumentation by the physician of record - 91431.? * Procedure Codes:?04077 DEBRI DE NAIL, 6 OR MORE, Modifiers: XS 18935 TRIM SKIN LESIONS, OVER 4, Modifiers: XS * Preventive Medicine:? ??Counseling:?Tobacco use:?Type of Tobacco Use Cessation Counseling provided?Smoking effects education ?Patient counseled on the dangers of smoking and urged to quit:?11/30/2024 ?Discussion:?-13: Office or other outpatient visit for the evaluation and management of an established patient, which required a medically appropriate history and/or examination and LOW level of DECISION MAKING for: 1 STABLE ACUTE UNCOMPLICATED PROBLEM, 2 OR MORE MINOR PROBLEMS, OR 1 STABLE CHRONIC PROBLEM, THAT POSE(S) A LOW RISK FOR MORBIDITY/MORTALITY. The visit on the day of the [...] have encouraged the patient to call the office.?Xerosis:?The patient was counseled on the diagnosis, potential etiologies, and treatment options for their skin condition. We discussed the risks and benefits of each option from performing no treatment, to utilizing OTC topical skin creams/ointments, to utilizing prescription topical creams/ointments, to utilizing customized compounded topical medications and use of nocturnal occlusion with any/all previously detailed therapies. We discussed the advantages and disadvantages of each possible treatment and importance for adherence to all the recommended therapies for optimum success and avoid potential complications such as open sore/infection/possible hospitalization. We discussed the potential effectiveness of each topical preparation as well as each ones possible side effects and/or patient medication interactions. Patient questions re: use, dosage, successful outcomes, and application consistency were reviewed and the patient verbalized that all answers were clearly understood. The patient has decided to apply Rx skin creams to their feet save the interspaces while paying special attention to the heels. Such was sent to their pharmacy at the time of visit.? ??Screening/Special Tests:?Fall Risk?Screening:?No falls in the past year ?FALLS: Screening for Future Fall Risk?Have you had any falls with injury in the past year??No * Follow Up:?2 Months * Images: * Sign off status: Completed true * Provider:?Arlene Palomares DPM Date:?2024 Generated for Olman jerez/Georgina/Maddie on:?12/29/2024 08:55 AM EST History and Physical Notes * HPI (History of Present Illness) Category Sub-Category Detail Notes Category Not es Skin problems Nature: dryness , scaling Location: B/L Duration: several days Course: worse At Risk footcare Pt States Last PCP Visit: Date: Examination Category Sub-Category Detail Notes Category Not [...] , 5 , , Left, T8, Plantar , Skin shows sign(s) of, dryness, scaling, in a stocking fashion, no fissure(s) present, B/L ULCER: Orthopedic DIGITAL DEFORMITIES: General Examination GENERAL APPEARANCE: Reveals a pleasant, alert, well nourished, well-developed, well hydrated individual, who demonstrates proper attention to hygiene/body habitus, and is in no acute distress, Pt serves as own historian for office visit today , ORIENTED: person, place, and t lonnie Ophthalmology Referral DIABETES EYE EXAM Procedure Perform ed:: Yes ?Date of Exam Performed: 11/01/2024 Diabetic Retinopathy Screening:: Yes Findings of Diabetic Eye Exam:: no retin opathy Vascular DP PULSES (B): 2/4, B/L PT PULSES (B): 2/4, B/L Nails NAILS are: Elongated, overg rown, dystrophic, lytic, greater than 3mm thick, discolored and friable with crumbly malodorous subungual debris , with dull to no pain on palpation due to neuropathy ,, T1,T2, T3, T4, T6,T7, T9
== END 2024-12-29 09:02 | disposition home or self-care (01) ==
PROVIDERS: PCP Internal Medicine; Visit Provider Urology
DX: E11.69 Type 2 diabetes mellitus with other specified complication (principal); N52.1 Erectile dysfunction due to diseases classified elsewhere; N40.1 Benign prostatic hyperplasia with lower urinary tract symptoms; R35.1 Nocturia; Z13.9 Encounter for screening, unspecified
CPT/HCPCS: 99214

== ENCOUNTER → 2024-12-29 08:24 | Outpatient (BNVA) | payer OTHER, SELFPAY | PROVIDERS: PCP Internal Medicine; Visit Provider Urology | DX: E11.69 Type 2 diabetes mellitus with other specified complication (principal); N52.1 Erectile dysfunction due to diseases classified elsewhere; N40.1 Benign prostatic hyperplasia with lower urinary tract symptoms; R35.1 Nocturia | CPT/HCPCS: 81003 ==

== ENCOUNTER 2025-03-14 07:21 | Outpatient (REF) | payer OTHER, SELFPAY ==
--- OUTSIDE RECORDS SUMMARY | 2025-03-14 07:23 | XMS_ITS ---
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 Role Phone Leonarda Gandhi MD Primary Care Provider Unavaila ble Black, Arlene Unavailable [phone] Allergies Allergen (clinical drug ingredient) Drug/Non Drug Allergy documented on EMR Reaction Allergy Type Onset Date Status acetaminophen Tylenol only liquid form, rash Drug Allergy Active lisinopril Lisinopril Unknown Drug Allergy Activ e REASON FOR VISIT At Risk Footcare, Skin problem(s) Medications Medication SIG (Take, Route, Frequency, Duration) Notes Start Date End Date Status Extra Depth Orthopedic Shoes (1 Pair) with Customized Heat Molded Multidensity Innersoles (3 Pair) as directed Dx: NIDDM/Polyneuropathy (E11.42), Hammertoe Foot Deformity (M20.41,M20.42), Preulcerative Skin Lesion(s) (L85.1 06/29/2024 Active metFORMIN HCl ER 750 MG Oral for 90 Days Active Ammonium Lactate 12 % 1 application Exte rnally Twice a day for 30 days Active Atorvastatin Calcium 20 MG 1 tablet Orally Once a day Active Olmesartan Medoxomil 20 MG 1 tablet Orally Once a day Active Ciprofloxacin HCl 500 MG 1 tablet Orally every 12 hrs for 7 days 06/18/2024 Not-Taking metFORMIN HCl 1000 MG 1 tablet with a me al Orally Once a day Not-Taking Sildenafil Citrate 100 MG Oral for 30 Days Active Cephalexin 500 MG 1 capsule Orally tatiana [...] Negative Vital Signs Height 6ft 5in in 02/09/2025 Weight 320 lbs 02/09/2025 BMI 37.94 kg/m2 02/09/2025 Blood pressure systolic 110 mm Hg 02/10/20 25 Blood pressure diastolic 77 mm Hg 025 Procedures Procedure Date Ordered Date Performed Result Body Sit e 92154-OTISPLB NAIL, 6 OR MORE 02/09/2025 N/A 98581-XASC SKIN LESIONS, OVER 4 02/09/2025 N/A Encounters Encounter Location Date Provider Diagnosis [facility] [address] 02/09/2025 Arlene Black Type 2 diabetes helen itus with diabetic polyneuropathy E11.42 ; Tinea unguium B35.1 and Xerosis of skin L85.3 Assessments Encounter Date Diagnosis (ICD Code) Assessment Notes Treatment Notes Treatment Clinical Notes Section Notes 02/09/2025 Type 2 diabetes mellitus with diabetic polyneuropathy (ICD-10 - E11.42) 02/09/2025 Tinea unguium (ICD-10 - B35.1) 02/09/2025 Xerosis of skin (ICD-10 - L85.3) Plan Of Treatment Pending Test Test Name Order Date 73172-GMLEFHL NAIL, 6 OR MORE 02/09/2025 60371-OKNL SKIN LESIONS, OVER 4 02/10/20 25 Next Appt Details Follow Up: 2 Months, Reason: Provider Name:Arlene Palomares , 04/19/2025 09:00:00 AM, [address] [facility], [place], [address], Procedure Notes * Category Sub-Category Detail Notes [...] use of a nail nipper and/or dremel-type lens grinder rough, to a more viable healthy nail plate [...] to maintain effectiveness in symptomatic relief - 48653 Keratoma Treatment Parring or Cutting o f [...] instrumentation by the physician of record - 52363 Progress Notes * Woody JORDANDOB:1975 (50 yo M)Acc No.[id number]:02/09/2025 Progress Note Patient:?Woody JORDAN Provider:?Arlene Palomares DPM :1975???Age:50 Y???Sex:Male Derian e:02/09/2025 Address:[address] [place] [address] [facility] Pcp:Leonarda Gandhi MD Subjective: * Chief Complaints: * ???At Risk FootcareSkin prob heike(s) * HPI: ???At Risk footcare:?Pt States Last PCP Visit:?Date?11/02/2024 ???Skin problems:?Nature:?dryness , scaling.?Location:?B/L .?Duration:?, several months.?Course:?, improved, at 85 %.?Treatments:?Topical OTC moisturizing lotion/cream has not relieved condition, medication ( AM Lactin ), has been successful?.? * ROS:?General/Constitutional:?Nausea?denies.?Vomiting?denies.?Hunger Thirst?denies.?Loss appetite?denies.?Chills?denies.?Fatigue?denies.?Fever?denies.?Night Sweats?denies.?Unexplained weight loss?denies.?Unexplained [...] fishing, hiking. ?Marital status: . 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 ???Drug/Alcohol:?AUDIT-C (Standard)?Did you have a drink containing [...] MG Tablet Extended Release 24 Hour Oral Ammonium Lactate 12 % Lotion 1 application Externally Twice a day Sildenafil Citrate 100 MG Tablet Oral Taking Atorvastatin Calcium 20 MG Tablet [...] Tablet Extended Release 24 Hour Oral Taking Ammonium Lactate 12 % Lotion 1 application Externally Twice a day Taking Sildenafil Citrate 100 MG Tablet Oral Not-Taking/PRNCephalexin 500 MG Capsule 1 capsule [...] Vitals:?Ht: 6ft 5in, Wt:320, BMI:37.94, Shoe size: 12, BP:110/77mm Hg, BS: doesnt test, Ht-cm: 195.58 cm, Wt-k.15 kg. * ???Past Orders: ???Lab:HEMOGLOBIN A1C (GLYCO HEMOGLOBIN) (Order Date - 11/03/2024) (Collection Date & Time - 11/03/2024 08:53 AM) ? Value Reference Range ?HEMOGLOBIN A1C % (HH) 5.9 * Examination: ???Ophthalmology Referral: ?DIABETES EYE EXAM?Procedure Performed:?Yes ?Date of Exam Performed?11/08/2024 ?Diabetic Retinopathy Screening:?Yes ?Findings of Diabetic Eye [...] in a stocking fashion, no fissure(s) present, B/L, approximately 85? percent LESS.?Nails: ?NAILS are:?Elongated, overgrown, dystrophic, lytic, greater than [...] Management (4)??? Plan: * Treatment: 2.?Tinea unguium?Procedure: 14443-JODZTOB NAIL, 6 OR MORE * Procedures:?Debride Nail 6-10:?Nail debridement?Due to the [...] use of a nail nipper and/or dremel-type lens grinder rough, to a more viable healthy nail plate [...] to maintain effectiveness in symptomatic relief - 25417.?Keratoma Treatment:?Parring or Cutting of Benign Hyperkeratotic Lesion(s)?(-57) [...] instrumentation by the physician of record - 82354.? * Procedure Codes:?97627 DEBRI DE NAIL, 6 OR MORE, Modifiers: XS 97452 TRIM SKIN LESIONS, OVER 4, Modifiers: XS * Preventive Medicine:? ??Counseling:?Discussion:?-12: Office or other outpatient visit for the evaluation and management of an established patient, which required a medically appropriate history and/or examination and STRAIGHTFORWARD level of MEDICAL DECISION MAKING, 1 SELF-LIMITED OR MINOR PROBLEM, MINIMAL- NO AMOUNT/COMPLEXITY OF DATA TO BE REVIEWED/ANALYZED, AND MINIMAL RISK OF COMPLICATION/MORBIDITY. The visit on the day of the [...] have encouraged the patient to call the office.?Xerosis:?Given recent successful results to treatment, The patient is to cont the rx cream as directed, with use of plastic bags and socks at night can also help to improve hydration.? * Follow Up:?2 Months * Images: * Sign off status: Completed true * Provider:?Arlene Palomares DPM Date:?2024 Generated for Davidi mrei/Georgina/eTransmitting on:?03/14/2025 07:23 AM EDT History and Physical Notes * HPI (History of Present Illness) Category Sub-Category Detail Notes Category Not es Skin problems Nature: dryness , scaling Location: B/L Duration: , several months Course: , improved, at 85 % Treatments: Topical OTC moisturi zing lotion/cream has not relieved condition, medication ( AM Lactin ), has been successful At Risk footcare Pt States Last PCP [...] in a stocking fashion, no fissure(s) present, B/L, approximately 85 percent LESS ULCER: Orthopedic DIGITAL DEFORMITIES: General Examination GENERAL APPEARANCE: Reveals a pleasant, alert, well nourished, well-developed, well hydrated individual, who demonstrates proper attention to hygiene/body habitus, and is in no acute distress, Pt serves as own historian for office visit today , ORIENTED: person, place, and t lonnie Ophthalmology Referral DIABETES EYE EXAM Procedure Perform ed:: Yes ?Date of Exam Performed: 11/08/2024 Diabetic Retinopathy Screening:: Yes Findings of Diabetic [...]
--- OUTSIDE RECORDS SUMMARY | 2025-03-14 07:24 | XMS_ITS | Patient Health Record ---
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 Name Role Phone Leonarda Gandhi MD Primary Care Provider Unavaila karen Black Arlene Unavailable [phone] Allergies Allergen (clinical drug ingredient) Drug/Non Drug Allergy documented on EMR Reaction Allergy Type Onset Date Status acetaminophen Tylenol only liquid form, rash Drug Allergy Active lisinopril Lisinopril Unknown Drug Allergy Activ e Results Component Value Reference Range Notes HEMOGLOBIN A1C (GLYCOHEMOGLO BIN) Reviewed date:11/30/2024 08:54:12 AM Interpretation: Performing Lab: Notes/Report: HEMOGLOBIN A1C % (HH) 5.9 HEMOGLOBIN A1C (GLYCOHEMOGLO BIN) Reviewed date:09/14/2024 09:32:56 AM Interpretation: Performing Lab: Notes/Report: TOTAL HEMOGLOBIN (HGBA1C) 6.2 Reason For Referral No Information Medications Medication SIG (Take, Route, Frequency, Duration) Notes Start Date End Date Status Ciprofloxacin HCl 500 MG 1 tablet Orally every 12 hrs for 7 days 06/18/2024 Not-Taking metFORMIN HCl 1000 MG 1 tablet with a me al Orally Once a day Not-Taking Sildenafil Citrate 100 MG Oral for 30 Days Active Extra Depth Orthopedic Shoes (1 Pair) with Customized Heat Molded Multidensity Innersoles (3 Pair) as directed Dx: NIDDM/Polyneuropathy (E11.42), Hammertoe Foot Deformity (M20.41,M20.42), Preulcerative Skin Lesion(s) (L85.1 06/29/2024 Active metFORMIN HCl ER 750 MG Oral for 90 Days Active Ammonium Lactate 12 % 1 application Exte rnally Twice a day for 30 days Active Cephalexin 500 MG 1 capsule Orally tatiana ry 8 hrs for 10 days Not-Taking Atorvastatin Calcium 20 MG 1 tablet [...] Polyneuropathy due to type 2 diabetes mellitus (274868509) Type 2 diabetes mellitus with diabetic polyneuropathy (E11.42) Active confirmed Problem 256128930 Hammer toe of left foot (M20.42) Active confirmed Problem Localized, primary osteoarthritis of the ankle and/or foot (457500911) Osteoarthritis of left ankle and foot (M19.072) Active confirmed Problem 627579885 Hammertoe of right foot (M20.41) Active confirmed Problem 90581026613889130 Skin ulcer of toe of right foot, limited to breakdown of skin (L97.511) Active confirmed Problem Osteoarthritis of midtarsal joint of right foot (3355491345547157) Osteoarthritis of midtarsal joint of right foot (M19.071) Active confirmed Problem Neuropathic ulcer of left heel, limited to breakdown of skin (L97.421) Active confirmed Response to treatment Problem 12589702069092366 Neuropathic ulcer of left foot, limited to breakdown of skin (L97.521) Active confirmed Response to treatment, Nonapplica ble Vital Signs Blood pressure diastolic 77 mm Hg 02/09/2025 Height 6ft 5in in 02/09/2025 Blood pressure systolic 110 mm Hg 02/09/2025 Weight 320 lbs 02/09/2025 BMI 37.94 kg/m2 02/09/2025 Procedures Procedure Date Ordered Date Performed Result Body Sit e 64169-XRSKVUV NAIL, 6 OR MORE 04/09/2024 N/A 91295-PFRK SKIN LESIONS, OVER 4 04/09/2024 N/A 87660-RKNIQWP NAIL, 6 OR MORE 06/15/2024 N/A 51608 I&D ABSCESS- SIMPLE,SINGLE 06/15/2024 N/A 75305-LVZR SKIN LESIONS, OVER 4 06/15/2024 N/A 48134- Debride <25 sq cm 06/29/2024 N/A 37927-OXORHIW NAIL, 6 OR MORE 09/14/2024 N/A 02402-EARL SKIN LESIONS, OVER 4 09/14/2024 N/A 66505-IMWVNQY NAIL, 6 OR MORE 11/30/2024 N/A 77333-YOLR SKIN LESIONS, OVER 4 11/30/2024 N/A 85524-VQLQCPE NAIL, 6 OR MORE 02/09/2025 N/A 34114-DXDF SKIN LESIONS, OVER 4 02/09/2025 N/A Encounters Encounter Location Date Provider Diagnosis [address] [place] [address] 04/09/2024 Arlene Black Type 2 diabetes mellitus with diabetic polyneuropathy E11.42 and Tinea unguium B35.[address] [place] [address] 06/15/2024 Arlene Black Type 2 diabetes mellitus with diabetic polyneuropathy E11.42 ; Tinea unguium B35.1 ; Cellulitis of toe of right foot L03.031 ; Cutaneous abscess of right foot L02.611 ; Hammertoe of right foot M20.41 and Medial crossover toe, right foot M20.5X1 [address] [place] [address] 06/29/2024 Arlene Palomares Type 2 diabetes mellitus with diabetic polyneuropathy E11.42 ; Hammertoe of right foot M20.41 ; Cellulitis of toe of right foot L03.031 ; Cutaneous abscess of right foot L02.611 ; Medial crossover toe, right foot M20.5X1 ; Hammer toe of left foot M20.42 and Skin ulcer of toe of right foot, limited to breakdown of skin L97.[address] [address] 09/14/2024 Arlene Palomares Type 2 diabetes mellitus with diabetic polyneuropathy E11.42 and Tinea unguium B35.[address] [address] 11/30/2024 Arlene Palomares Type 2 diabetes mellitus with diabetic polyneuropathy E11.42 ; Tinea unguium B35.1 and Xerosis of skin L85.[address] [address] 02/09/2025 Arlene Palomares Type 2 diabetes mellitus with diabetic polyneuropathy E11.42 ; Tinea unguium B35.1 and Xerosis of skin L85.3 [facility] [address] [place] [address] 06/15/[address] [address] 06/15/[address] [address] 06/18/2024 Arlene Palomares Assessments Encounter Date Diagnosis (ICD Code) Assessment Notes Treatment Notes Treatment Clinical Notes Section Notes 04/09/2024 Type 2 diabetes mellitus with diabetic [...] with diabetic polyneuropathy (ICD-10 - E11.42) 02/09/2025 Type 2 diabetes mellitus with diabetic polyneuropathy (ICD-10 - E11.42) 02/09/2025 Tinea unguium (ICD-10 - B35.1) 06/29/2024 Cellulitis of toe of right foot (ICD-10 - L03.031) Resolved 11/30/2024 Tinea unguium (ICD-10 - B35.1) 06/15/2024 Cellulitis of toe of right foot (ICD-10 - L03.031) 06/15/2024 Cutaneous abscess of right foot (ICD-10 - L02.611) 11/30/2024 Xerosis of skin (ICD-10 - L85.3) 06/29/2024 Cutaneous abscess of right foot (ICD-10 - L02.611) Resolved 02/09/2025 Xerosis of skin (ICD-10 - L85.3) 06/29/2024 Medial crossover toe, right foot (ICD-10 - M20.5X1) 06/15/2024 Hammertoe of right foot (ICD-10 - M20.41) 06/15/2024 Medial crossover toe, right foot (ICD-10 - M20.5X1) 06/29/2024 Hammer toe of left foot (ICD-10 - M20.42) 06/29/2024 Skin ulcer of toe of right foot, limited to breakdown of skin (ICD-10 - L97.511) Plan Of Treatment Pending Test Test Name Order Date *Wound Culture 06/15/2024 44410-QCRYZCL NAIL, 6 OR MORE 06/15/2024 01498-NPYWMXZ NAIL, 6 OR MORE 09/14/2024 04353-XKTOCVU NAIL, 6 OR MORE 11/30/2024 34854-NWBUUPJ NAIL, 6 OR MORE 09/02/2023 55774-QIYMCTV NAIL, 6 OR MORE 10/28/2023 27642-DECHLHF NAIL, 6 OR MORE 01/21/2024 79844-BIBELWP NAIL, 6 OR MORE 04/09/2024 12528-UNAIMDG NAIL, 6 OR MORE 02/09/2025 76526- Debride <25 sq cm 10/28/2023 99542- Debride <25 sq cm 06/29/2024 86797 I&D ABSCESS- SIMPLE,SINGLE 024 90043-AFZA SKIN LESIONS, OVER 4 09/14/20 24 61997-NCWX SKIN LESIONS, OVER 4 02/10/20 25 67937-ZONM SKIN LESIONS, OVER 4 11/30/19 89366-CNKU SKIN LESIONS, OVER 4 10/28/19 24 95522-BDXL SKIN LESIONS, OVER 4 01/21/20 24 00290-SUCS SKIN LESIONS, OVER 4 06/15/20 24 01480-YDNJ SKIN LESIONS, OVER 4 04/09/20 24 48342-RYWM SKIN LESIONS, OVER 4 09/02/20 Next Appt Details Provider Name:Arlene Eduardo Jelani , 04/19/2025 09:00:00 AM, [address] [facility], [place], [address], Insurance Providers Payer Name Payer Address Payer Phone Subscriber Number Group Number Insured Name Patient Relationship to Insured Coverage Start Date Coverage End Date [facility] [address] [place] [address] [id number] Woody Davila Self - patient is the insured Medical (General) History Medical History History ICD Code covid-19 Broken bones CAD (Cholesterol) Chicken pox High blood pressure Numbness Lyme disease ulcer Supraventricular tachycardia type 2 diabetic Surgical History Surgery Date(Month/Year) foot surgery 2018 neck surgery 2020 carpal tunnel surgery 2022 Left/Right Cabital 2022
--- OUTSIDE RECORDS SUMMARY | 2025-03-14 07:24 | XMS_ITS ---
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 Name Role Phone Leonarda Gandhi MD Primary Care Provider Unavaila karen Black, Arlene Unavailable [phone] Allergies Allergen (clinical drug ingredient) Drug/Non Drug [...] Blood pressure systolic 110 mm Hg 09/14/20 Blood pressure diastolic 70 mm Hg 024 Procedures Procedure Date Ordered Date Performed Result Body Sit e 88148-YHQKFLQ NAIL, 6 OR MORE 09/14/2024 N/A 52630-PMVP SKIN LESIONS, OVER 4 09/14/2024 N/A Encounters Encounter Location Date Provider Diagnosis [facility] [address] [place] [address] 09/14/2024 Arlene Palomares Type 2 diabetes helen itus with diabetic polyneuropathy E11.42 and Tinea unguium B35.1 Assessments Encounter Date Diagnosis (ICD Code) Assessment Notes Treatment Notes Treatment Clinical Notes Section Notes 09/14/2024 Type 2 diabetes mellitus with diabetic polyneuropathy (ICD-10 - E11.42) 09/14/2024 Tinea unguium (ICD-10 - B35.1) Plan Of Treatment Pending Test Test Name Order Date 16086-FGKYCPS NAIL, 6 OR MORE 09/14/2024 14315-LPYV SKIN LESIONS, OVER 4 09/14/20 24 Next Appt Details Follow Up: 2 Months, Reason: Provider Name:Arlene Eduardo Jelani , 04/19/2025 09:00:00 AM, [address], [place], [address], Procedure Notes * Category Sub-Category Detail Notes [...] as necessary. Patient chooses, no pharmaceutical tx (72385) Keratoma Treatment Parring or Cutting o f Benign Hyperkeratotic Lesion(s) 83171 ( More than 4 Lesions ) - The Benign hyperkeratotic lesions, as described above were pared, and/or cut utilizing a sterile 15 blade, tissue nippers, and/or dremel Progress Notes * NEDA WoodyDOB:1975 (49 yo M)Acc No.[id number]:09/14/2024 Progress Note Patient:?Woody JORDAN Provider:?Arlene Palomares DPM :1975???Age:49 Y???Sex:Male Derian e:09/14/2024 Address:[address] [place], [place] [id number] Pcp:Leonarda Gandhi MD Subjective: * Chief Complaints: [...] fishing, hiking. ?Marital status: . 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 ???Drug/Alcohol:?AUDIT-C (Standard)?Did you have a drink containing [...] - B35.1??? Plan: * Treatment: 2.?Tinea unguium?Procedure: 05879-UHQFWDU NAIL, 6 OR MORE * Procedures:?Debride Nail 6-10:?Nail debridement?Nail debridement performed extensively to reduce/remove overall nail length and girth, subungual debris, and necrotic tissue, by manual and electrical means with use of a nail nipper and/or dremel, to more viable healthy nail plate or bed tissue 6-10. Silver nitrate used for any petechial bleeding as necessary. Patient chooses, no pharmaceutical tx (51641).?Keratoma Treatment:?Parring or Cutting of Benign Hyperkeratotic Lesion(s)?44152 ( More than 4 Lesions ) - The Benign hyperkeratotic lesions, as described above were pared, and/or cut utilizing a sterile 15 blade, tissue nippers, and/or dremel.? * Procedure Codes:?25724 DEBRI DE NAIL, 6 OR MORE, Modifiers: XS 81648 TRIM SKIN LESIONS, OVER 4, Modifiers: XS * Follow Up:?2 Months * Images: * Sign off status: Completed true * Provider:?Arlene Palomares DPM Date:?2023 Generated for Olman jerez/Georgina/Maddie on:?03/14/2025 07:23 AM EDT History and Physical [...]
--- OUTSIDE RECORDS SUMMARY | 2025-03-14 07:24 | XMS_ITS ---
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 Name Role Phone Leonarda Gandhi MD Primary Care Provider Unavaila ble Black, Arlene Unavailable [phone] Allergies Allergen (clinical drug ingredient) Drug/Non Drug [...] Ordered Date Performed Result Body Sit e 68993-XZLNEBT NAIL, 6 OR MORE 11/30/2024 N/A 02108-HWPO SKIN LESIONS, OVER 4 11/30/2024 N/A Encounters Encounter Location Date Provider Diagnosis [facility] [address] 11/30/2024 Arlene Black Type 2 diabetes helen [...] days Pending Test Test Name Order Date 38814-BQLOYQA NAIL, 6 OR MORE 11/30/2024 26944-XDTB SKIN LESIONS, OVER 4 11/30/19 25 Next Appt Details Follow Up: 2 Months, Reason: Provider Name:Arlene Palomares , 04/19/2025 09:00:00 AM, [address] [facility], [place], [address], Procedure Notes * Category Sub-Category Detail Notes [...] use of a nail nipper and/or dremel-type beef grinder, to a more viable healthy nail [...] to maintain effectiveness in symptomatic relief - 30038 Keratoma Treatment Parring or Cutting o f [...] instrumentation by the physician of record - 51798 Progress Notes * Woody JORDANDOB:1975 (49 yo M)Acc No.[id number]:11/30/2024 Progress Note Patient:?Woody JORDAN Provider:?Arlene Palomares DPM :1975???Age:49 Y???Sex:Male Derian e:11/30/2024 Address:[address] [place], [place] [id number] Pcp:Leonarda Gandhi MD Subjective: * Chief Complaints: [...] fishing, hiking. ?Marital status: . 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 ???Drug/Alcohol:?AUDIT-C (Standard)?Did you have a drink containing [...] Management (4)??? Plan: * Treatment: 2.?Tinea unguium?Procedure: 99567-FACRKTR NAIL, 6 OR MORE 3.?Xerosis of skin? [...] use of a nail nipper and/or dremel-type beef grinder, to a more viable healthy nail [...] to maintain effectiveness in symptomatic relief - 55416.?Keratoma Treatment:?Parring or Cutting of Benign Hyperkeratotic Lesion(s)?(-57) [...] instrumentation by the physician of record - 22726.? * Procedure Codes:?15388 DEBRI DE NAIL, 6 OR MORE, Modifiers: XS 55791 TRIM SKIN LESIONS, OVER 4, Modifiers: XS [...] Palomares DPM Date:?2024 Generated for Olman jerez/Georgina/Maddie on:?03/14/2025 07:24 AM EDT History and Physical Notes * HPI (History of Present Illness) Category Sub-Category Detail Notes Category Not es Skin problems Nature: dryness , scaling Location: B/L Duration: several days Course: worse At Risk footcare Pt States Last PCP Visit: Date: 5 Examination Category Sub-Category Detail Notes Category Not [...]
[2025-03-14 10:14] LABS: MANUAL DIFF FLAG NO
[2025-03-14 10:37] LABS: Basophils Percent Auto 0.4 % (0-2); Eosinophils Absolute Auto 0.3 X10*3/uL (0.0-0.4); Eosinophils Percent Auto 3.2 % (0-4); Hematocrit 49.6 % (42.0-52.0); Hemoglobin 17.1 g/dl (14.0-18.0); Imm Gran Abs Auto 0.02 X10*3/uL (0.00-0.03); Imm Gran Pct Auto 0.2 % (0.0-0.4); Lymphocytes Absolute Auto 2.1 X10*3/uL (1.2-4.9); Lymphocytes Percent Auto 25.7 % (20-40); Mean Corpuscular HGB Conc 34.5 g/dl (31.0-36.0); Mean Corpuscular Hemoglobin 30.3 pg (27.0-33.0); Mean Corpuscular Volume 87.9 fL (80.0-98.0); Mean Platelet Volume 9.3 fL (9.4-12.4); Monocytes Absolute Auto 0.5 X10*3/uL (0.1-1.2); Monocytes Percent Auto 6.1 % (2-11); Neutrophils Absolute Auto 5.2 x10*3/uL (2.0-8.3); Neutrophils Percent Auto 64.4 % (45-73); Platelet Count 292 X10*3/uL (160-400); Red Blood Count 5.64 X10*6/uL (4.60-5.80); Red Cell Distribution Width 13.4 % (11.0-16.0); White Blood Count 8.1 X10*3/uL (4.8-10.8)
[2025-03-14 10:39] LABS: Estimated Average Glucose 131 mg/dL; Hemoglobin A1C 192.5601 umol/L; Hemoglobin A1c % 6.2 % (<6.0)
[2025-03-14 10:44] LABS: Alanine Aminotransferase 37 U/L (0-40); Albumin Level 4.1 g/dL (3.5-5.0); Alkaline Phosphatase 75 U/L (39-117); Anion Gap 12 (12-20); Aspartate Amino Transferase 31 U/L (5-37); Bilirubin Total 0.4 mg/dL (0.0-1.0); Blood Urea Nitrogen 11 mg/dL (9-16); Calcium 9.2 mg/dL (8.4-10.2); Carbon Dioxide 26 mmol/L (22-29); Chloride 106 mmol/L (96-108); Cholesterol 104 mg/dL (<200); Estimated Glomerular Filt Rate > 60; Glucose Fasting 130 mg/dL (60-99); HDL Cholesterol 27 mg/dL (>40); LDL Cholesterol Calculated 58 mg/dL (<100); Potassium 4.8 mmol/L (3.3-5.1); Sodium 139 mmol/L (135-145); Total Protein 7.1 g/dL (6.5-8.0); Triglycerides 96 mg/dL (<150)
[2025-03-14 11:20] LABS: Creatinine Urine 93.42 mg/dL; Microalbumin Urine < 5.0 mg/L
== END 2025-03-14 07:22 | disposition home or self-care (01) ==
LOC: HO.HMGCLDS 07:21
PROVIDERS: PCP Internal Medicine; Visit Provider Internal Medicine
DX: Z00.00 Encounter for general adult medical examination without abnormal findings (principal); E11.9 Type 2 diabetes mellitus without complications; I10 Essential (primary) hypertension; E78.5 Hyperlipidemia, unspecified
CPT/HCPCS: 36415; 80053; 80061; 82043; 82570; 83036; 85025; 96127

== ENCOUNTER 2025-03-14 07:44 | Outpatient (AMB) | payer OTHER, SELFPAY ==
[2025-03-14 08:11] VITALS: BP 124/80; PULSE 75; RESP 20; TEMP 36.7; O2SAT 98; BMI 40.0
--- NOTE | 2025-03-14 08:11 | MHC.PC.OV ---
Vital Signs 03/14/25 08:11 Height 6 ft 5 in Weight 337 lb BMI 40.0 BP 124/80 Blood Pressure Location Lt brachial Position Sitting Respiration 20 Pulse 75 Pulse Source Pulse Oximeter Temp 98.1 F Temp Source Oral Pulse Oximetry (%) 98 Oxygen Delivery Method Room Air Intake Visit Reasons: Annual PE Intake Note: Pt is here today for PE. Allergies acetaminophen [Acetaminophen] Allergy (Intermediate, Verified 03/14/25 08:13) rash from liquid form after prolonged use lisinopril Adverse Reaction (Intermediate, Verified 03/14/25 08:13) Cough Medication List - Last Reconciled 03/14/25 by Leonarda Gandhi MD atorvastatin 20 mg PO DAILY metformin ER 750 mg PO DAILY olmesartan 20 mg PO DAILY sildenafil 100 mg PO ONCE PRN 30 days tadalafil 5 mg PO DAILY 90 days Tobacco use date assessed: 03/14/25 Dental Screening Dental Screen Date: 03/14/25 Did you have a dental visit in the last 12 months?: Yes Did you have a dental problem in the last 6 months where you did not have access to dental care?: No Was dental information given to patient?: Patient has dentist HPI Annual PE HPI Details Pt presents for PE. Patient has been decreasing caloric intake increasing physical activity for the last 6 months in order to lose weight. He is interested in starting GLP 1 agonist in order to facilitate weight loss and improve glycemic control of diabetes. [facility] Medical History (Updated 03/14/25 @ 08:46 by Leonarda Gandhi MD) History of snoring Hematuria Hyperkalemia BPH (benign prostatic hyperplasia) Carpal tunnel syndrome Annual physical exam Type 2 diabetes mellitus Cervical spine degeneration Hyperlipidemia Overweight Ankle fracture, left SVT (supraventricular tachycardia) Peripheral neuropathy Chronic foot ulcer Surgical History Hx of colonoscopy History of carpal tunnel surgery of right wrist H/O cardiac radiofrequency ablation H/O foot surgery [place] teeth extracted Family History Father Lung cancer Mother No problems noted. 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 1. Little interest or pleasure in doing things: not at all 2. Feeling down, depressed, or hopeless: not at all 3. Trouble falling or staying asleep, or sleeping too much: not at all 4. Feeling tired or having little energy: not at all 5. Poor appetite or overeating: not at all 6. Feeling bad about yourself - or that you are a failure or have let yourself or your family down: not at all 7. Trouble concentrating on things, such as reading the newspaper or watching television: not at all 8. Moving or speaking so slowly that other people could have noticed. Or the opposite - being so fidgety or restless that you have been moving around a lot more than usual: not at all 9. Thoughts that you would be better off or of hurting yourself in some way: not at all Total score: 0 Depression Screening Interpretation: Negative Depression Screening Done: Yes 31023 - PHQ-9 Billing: Yes Source: Developed by Drs. Woody Rocha, Franny Pruitt, Luis Christianson and colleagues, with an educational cathleen from [employer]. Thrive Questionnaire Date Thrive assessed: 03/14/25 I am a: Patient What is your living situation today?: I have a steady place to live Within the past 12 months, did the food you bought not last and you didn't have the money to get more?: Never true Within the past 12 months, did you worry whether your food would run out before you got money to buy more?: Never true Do you have trouble paying for medicines?: No Do you have trouble getting transportation to medical appointments?: No Do you have trouble paying your heating and electricity bill?: No Do you have trouble taking care of your child, family member or friend?: No Do you have trouble with day-to-day activities such as bathing, preparing meals, shopping, managing finances, etc.?: No Are you currently unemployed and looking for a job?: No Are you interested in more education?: No Please select the resources that you would like help with: None Currently or been in a relationship where the following occur: No concerns reported THRIVE Score: 0 AUDIT C Alcohol Use Questionnaire (AUDIT-C) 1. How often do you have a drink containing alcohol?: Monthly or less 2. How many drinks containing alcohol do you have on a typical day when you are drinking?: 1 or 2 3. How often do you have six or more drinks on one occasion?: Never Total Score: 1 HAIDER-7 AMB Questionnaire HAIDER-7 Date HAIDER - 7 assessed: 03/14/25 Feeling nervous, anxious, or on edge: 0 = Not at all Not being able to stop or control worryin = Not at all Worrying too much about different things: 0 = Not at all Trouble relaxin = Not at all Being so restless that it is hard to sit still: 0 = Not at all Becoming easily annoyed or irritable: 0 = Not at all Feeling afraid as if something awful might happen: 0 = Not at all Total HAIDER-7 score (0-4 normal; 5-9 mild; 10-14 moderate; 15-21 severe): 0 Source: Developed by Drs. Woody Rocha, Franny Pruitt, Luis Christianson and colleagues, with an educational cathleen from [employer]. HAIDER-7 Assessment Billing HAIDER-7 Assessment Tool: HAIDER-7 Assessment 05440 Review of Systems Const All systems reviewed & are unremarkable except as noted in HPI and below Eyes Reports no additional complaints ENT Reports no additional complaints Card Reports no additional complaints Resp Reports no additional complaints GI Reports no additional complaints Reports no additional complaints Physical exam (Primary Care) Vital Signs: Last Vital Signs Temp 98.1 F 03/14/25 08:11 Pulse 75 03/14/25 08:11 Resp 20 03/14/25 08:11 BP 124/80 03/14/25 08:11 Pulse Ox 98 03/14/25 08:11 Oxygen Delivery Method Room Air 03/14/25 08:11 BMI result Body Mass Index 40.0 Tobacco/Smoking Status: Tobacco use Status Tobacco use date assessed 03/14/25 03/14/25 08:16 Patient Tobacco Use Status Current everyday Tobacco 03/14/25 08:16 Tobacco use type Cigarette 03/14/25 08:16 e-Cigarette/Vaping Use Never Used 03/14/25 08:16 PHQ-9: PHQ-9 Score PHQ-9: Total score 0 03/14/25 08:16 Depression Screening Interpretation: Negative Thrive Assessment: Date of Thrive Assessment Date Thrive assessed 03/14/25 03/14/25 08:16 Currently or been in a relationship where the following occur: No concerns reported Const General: no acute distress HENMT Head: Yes normal to inspection General nose exam: Normal external nose present Face and sinus: Yes normal facial exam Mouth: Normal oral and palatal mucosa present Eyes General: appearance normal, both eyes and all related structures Neck Neck: Yes no lymphadenopathy and Yes supple Resp Effort & Inspection: normal respiratory effort Auscultation: clear to auscultation bilaterally Cardio Rate: regular rate Rhythm: regular rhythm Heart sounds: S1 normal heart sound present and S2 normal heart sound present GI Inspection: Yes normal to inspection Palpation (GI): Soft to palpation Percussion: Yes normal to percussion Auscultation: normal bowel sounds Extrem Other: Absent sensation to monofilament at a high socks level bilaterally, skin is intact General: Yes no clubbing, cyanosis or edema Coding Level of Care Code Est Pt Prev Care 40-64y(48317) Diagnoses Annual physical exam Z00.00 Type 2 diabetes mellitus E11.9 HTN (hypertension) I10 Additional Codes HAIDER-7 Assessment Billing - HAIDER-7 Assessment Tool: HAIDER-7 Assessment 86783 ([id number]) PHQ-9 - 74284 - PHQ-9 Billing: Yes ([id number]) Assessment & Plan Assessment & Plan (1) Annual physical exam: Comment: Negative colonoscopy 2023 Code(s): Z00.00 - Encounter for general adult medical examination without abnormal findings Category: Medical Plan: Well-balanced diet regular physical activity weight loss discussed with the patient. He declined Pneumovax (2) Type 2 diabetes mellitus: Code(s): E11.9 - Type 2 diabetes mellitus without complications Category: Medical Plan: Caloric intake ADA diet discussed with the patient he had a blood work this morning and results are still pending. Mounjaro 2.5 mg weekly will be added and side effects discussed with the patient. He will follow-up in 3 months with fasting labs (3) HTN (hypertension): Code(s): I10 - Essential (primary) hypertension Category: Medical Plan: Continue current medication Orders: Orders Comprehensive [place]. Panel Fast 3 Months E11.9 - Type 2 diabetes mellitus without complications, E78.5 - Hyperlipidemia, unspecified, I10 - Essential (primary) hypertension, Z00.00 - Encounter for general adult medical examination without abnormal findings Complete Blood Count Auto Diff 3 Months E11.9 - Type 2 diabetes mellitus without complications, E78.5 - Hyperlipidemia, unspecified, I10 - Essential (primary) hypertension, Z00.00 - Encounter for general adult medical examination without abnormal findings PSA,Total (Free>4and<10) 3 Months E11.9 - Type 2 diabetes mellitus without complications, E78.5 - Hyperlipidemia, unspecified, I10 - Essential (primary) hypertension, Z00.00 - Encounter for general adult medical examination without abnormal findings Hemoglobin A1c 3 Months E11.9 - Type 2 diabetes mellitus without complications, E78.5 - Hyperlipidemia, unspecified, I10 - Essential (primary) hypertension, Z00.00 - Encounter for general adult medical examination without abnormal findings Microalbumin, Random (w Creat) 3 Months E11.9 - Type 2 diabetes mellitus without complications, E78.5 - Hyperlipidemia, unspecified, I10 - Essential (primary) hypertension, Z00.00 - Encounter for general adult medical examination without abnormal findings Medications: New Mounjaro (tirzepatide) 2.5 mg (0.5 mL) subcut QWEEK 2 mL 1RF NS
== END 2025-03-14 08:42 | disposition home or self-care (01) ==
LOC: HO.HMCC 07:45
PROVIDERS: PCP Internal Medicine; Visit Provider Internal Medicine
DX: Z00.00 Encounter for general adult medical examination without abnormal findings (principal); E11.9 Type 2 diabetes mellitus without complications; I10 Essential (primary) hypertension

== ENCOUNTER 2025-03-29 08:46 | Outpatient (AMB) | payer OTHER, SELFPAY ==
--- NOTE | 2025-03-29 08:46 | A.OFFVIS_ITS ---
Intake Visit Reasons: 3m follow up Intake Note: Patient is present for 3M F/U Urology Medication:SILDENAFIL,TADALAFIL Antibiotic Allergy:NONE Blood Thinner:NONE Nurse'S Aides Teacher Required: No Allergies acetaminophen [Acetaminophen] Allergy (Intermediate, Verified 03/29/25 08:47) rash from liquid form after prolonged use lisinopril Adverse Reaction (Intermediate, Verified 03/29/25 08:47) Cough HPI Comments Details: Woody is a pleasant male. He is a patient of Dr. Gandhi. He is seen for the following urologic conditions - erectile dysfunction in setting of diabetes - lower urinary tract symptoms Telemedicine Evaluation 15 min Consultation [employer] Hui Video Follow-up from use of tadalafil 5 mg daily Still had heartburn Responding well to sildenafil Check testosterone and PSA Discussed Testosterone oriental orthodox in male diabetic Current HbA1c 6.2 Diabetes managed with metformin Discussed weight loss and use of Tirzepatide Urinary Symptoms Review - Nocturia with frequent nighttime urination, occurring sometimes several times in succession. - No significant issues with the force of the urinary stream reported. - Symptoms have been persistent for an unspecified duration. Previous treatment with Tamsulosin was ineffective Erectile dysfunction related diabetes Has some urgency frequency Nocturia progressive Erectile dysfunction Has heartburn with high-dose tadalafil PFSH Medical History History of snoring Hematuria Hyperkalemia BPH (benign prostatic hyperplasia) Carpal tunnel syndrome Annual physical exam Type 2 diabetes mellitus Cervical spine degeneration Hyperlipidemia Overweight Ankle fracture, left SVT (supraventricular tachycardia) Peripheral neuropathy Chronic foot ulcer Surgical History Hx of colonoscopy History of carpal tunnel surgery of right wrist H/O cardiac radiofrequency ablation H/O foot surgery [place] teeth extracted Family History Father Lung cancer Mother No problems noted. 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 Cognitive needs: No Hearing needs: No Vision needs: No Review of Systems Const All systems reviewed & are unremarkable except as noted in HPI and below Reports no additional complaints Resp Reports no additional complaints GI Reports no additional complaints Reports as per HPI Musc Reports no additional complaints Physical Exam Telemedicine evaluation Appropriate responses Regular breathing rate and rhythm HEENT Head: Yes normal to inspection Ears: hearing grossly normal bilaterally Eyes General: appearance normal, both eyes and all related structures Neck Neck: Yes normal visual inspection Chest Chest palpation & inspection: normal inspection of the chest Resp Effort & Inspection: normal respiratory effort and able to speak in complete sentences Telehealth Telehealth Telehealth Platform: [employer] Location of provider rendering services: practice address Location of patient: address on file Patient Identification confirmed using: Name, : Yes Telehealth method: video Patient verbally consented to treatment: Yes Patient verbally consented to billing insurance company: Yes Patient informed of any privacy concerns related to visit: Yes Minutes spent on Phone/Video with Pt.: 15 Assessment & Plan Assessment & Plan (1) Erectile dysfunction associated with type 2 diabetes mellitus: Code(s): E11.69 - Type 2 diabetes mellitus with other specified complication; N52.1 - Erectile dysfunction due to diseases classified elsewhere Category: Medical (2) BPH (benign prostatic hyperplasia): Code(s): N40.0 - Benign prostatic hyperplasia without lower urinary tract symptoms Category: Medical Plan Lab work Four week follow-up tele Orders: Orders Prostate Specific Antigen Today E11.69 - Type 2 diabetes mellitus with other specified complication, N52.1 - Erectile dysfunction due to diseases classified elsewhere Testosterone, Total Today C61 - Malignant neoplasm of prostate, E11.69 - Type 2 diabetes mellitus with other specified complication, N52.1 - Erectile dysfunction due to diseases classified elsewhere Follicle Stimulating Hormone Today E11.69 - Type 2 diabetes mellitus with other specified complication, N52.1 - Erectile dysfunction due to diseases classified elsewhere, R68.82 - Decreased libido Patient Instructions: This note is constructed using voice recognition software. While every effort has been made to ensure accuracy rock drill operator errors may have been included. Imaging studies, laboratory and physical exam results were discussed and reviewed in detail. No major barriers to patient understanding were identified. An opportunity to ask questions regarding the treatment plan was provided. All questions were answered. The patient expressed understanding and agreement with the above treatment plan. The patient is aware they should contact our office by phone for worsening of their current condition or the appearance of new urologic symptoms. Compliance is encouraged with any medications and followup testing that is ordered. It is a privilege to participate in the urologic care of your patient. If you have any questions or concerns regarding treatment for the above conditions, or other urologic issues, please do not hesitate to contact me. The office telephone contact is [phone]. Sincerely, Dr Rahul Hemphill MD, AN[facility] - Urology Compassionate Specialist Care for the Genitourinary System Coding Level of Care Code Tele Est Pt Level 3 (66964) Complex EM visit Add On G2211 Diagnoses Erectile dysfunction associated with type 2 diabetes mellitus E11.69; N52.1 BPH (benign prostatic hyperplasia) N40.0
--- OUTSIDE RECORDS SUMMARY | 2025-03-29 09:16 | XMS_ITS | Patient Health Record ---
Author [facility] Address [address] [place] [address] Care Team Providers Care Casino Gaming Worker Name Role Phone Leonarda Gandhi MD Primary Care Provider Unavaila karen Palomares Arlene Unavailable [phone] Allergies Allergen (clinical drug ingredient) Drug/Non Drug Allergy documented on EMR Reaction Allergy Type Onset Date Status acetaminophen Tylenol only liquid form, rash Drug Allergy Active lisinopril Lisinopril Unknown Drug Allergy Activ e Results Component Value Reference Range Notes HEMOGLOBIN A1C (GLYCOHEMOGLO BIN) Reviewed date:09/14/2024 09:32:56 [...] Polyneuropathy due to type 2 diabetes mellitus (934940557) Type 2 diabetes mellitus with diabetic polyneuropathy (E11.42) Active confirmed Problem 621075733 Hammer toe of left foot (M20.42) Active confirmed Problem Localized, primary osteoarthritis of the ankle and/or foot (452486989) Osteoarthritis of left ankle and foot (M19.072) Active confirmed Problem 654494935 Hammertoe of right foot (M20.41) Active confirmed Problem 25505489546969959 Skin ulcer of toe of right foot, limited to breakdown of skin (L97.511) Active confirmed Problem Osteoarthritis of midtarsal joint of right foot (4824518386997078) Osteoarthritis of midtarsal joint of right foot (M19.071) Active confirmed Problem Neuropathic ulcer of left heel, limited to breakdown of skin (L97.421) Active confirmed Response to treatment Problem 02971324645432755 Neuropathic ulcer of left foot, limited to breakdown of skin (L97.521) Active confirmed Response to treatment, Nonapplica ble Vital Signs Blood pressure diastolic 77 mm Hg 02/09/2025 Height 6ft 5in in 02/09/2025 Blood pressure systolic 110 mm Hg 02/09/2025 Weight 320 lbs 02/09/2025 BMI 37.94 kg/m2 02/09/2025 Procedures Procedure Date Ordered Date Performed Result Body Sit e 51390-BPYZSKE NAIL, 6 OR MORE 04/09/2024 N/A 90967-MHGT SKIN LESIONS, OVER 4 04/09/2024 N/A 97271-FUHIDLX NAIL, 6 OR MORE 06/15/2024 N/A 63688 I&D ABSCESS- SIMPLE,SINGLE 06/15/2024 N/A 03749-LHCR SKIN LESIONS, OVER 4 06/15/2024 N/A 29088- Debride <25 sq cm 06/29/2024 N/A 06800-YDLRUED NAIL, 6 OR MORE 09/14/2024 N/A 83048-YHTC SKIN LESIONS, OVER 4 09/14/2024 N/A 01092-VTIOSPQ NAIL, 6 OR MORE 11/30/2024 N/A 51186-VKPR SKIN LESIONS, OVER 4 11/30/2024 N/A 78913-WLOJMQF NAIL, 6 OR MORE 02/09/2025 N/A 49114-DFDR SKIN LESIONS, OVER 4 02/09/2025 N/A Encounters Encounter Location Date Provider Diagnosis [address] [place] [address] 04/09/2024 Arlene Black Type 2 diabetes mellitus with diabetic polyneuropathy E11.42 and Tinea unguium B35.[address] [place] [address] 06/15/2024 Arlene Black Type 2 diabetes mellitus with diabetic polyneuropathy E11.42 ; Tinea unguium B35.1 ; Cellulitis of toe of right foot L03.031 ; Cutaneous abscess of right foot L02.611 ; Hammertoe of right foot M20.41 and Medial crossover toe, right foot M20.5X1 [address] [place] [address] 06/29/2024 Arlene Palomares Type 2 diabetes mellitus with diabetic polyneuropathy E11.42 ; Hammertoe of right foot M20.41 ; Cellulitis of toe of right foot L03.031 ; Cutaneous abscess of right foot L02.611 ; Medial crossover toe, right foot M20.5X1 ; Hammer toe of left foot M20.42 and Skin ulcer of toe of right foot, limited to breakdown of skin L97.[address] [address] 09/14/2024 Arlene Palomares Type 2 diabetes mellitus with diabetic polyneuropathy E11.42 and Tinea unguium B35.[address] [address] 11/30/2024 Arlene Palomares Type 2 diabetes mellitus with diabetic polyneuropathy E11.42 ; Tinea unguium B35.1 and Xerosis of skin L85.[address] [address] 02/09/2025 Arlene Palomares Type 2 diabetes mellitus with diabetic polyneuropathy E11.42 ; Tinea unguium B35.1 and Xerosis of skin L85.3 [facility] [address] [place] [address] 06/15/[address] [address] 06/15/[address] [address] 06/18/2024 Arlene Palomares Assessments Encounter Date Diagnosis [...] Test Name Order Date *Wound Culture 06/15/2024 98651-IFAWMGS NAIL, 6 OR MORE 06/15/2024 97601-SEKPYWC NAIL, 6 OR MORE 09/14/2024 40493-ZRWGNGC NAIL, 6 OR MORE 11/30/2024 50046-NEUJIWT NAIL, 6 OR MORE 09/02/2023 77799-TOEDNYZ NAIL, 6 OR MORE 10/28/2023 56101-RWYVAKH NAIL, 6 OR MORE 01/21/2024 21345-ABFOEQC NAIL, 6 OR MORE 04/09/2024 71195-PYOTJEY NAIL, 6 OR MORE 02/09/2025 32775- Debride <25 sq cm 10/28/2023 21119- Debride <25 sq cm 06/29/2024 11745 I&D ABSCESS- SIMPLE,SINGLE 024 50237-NKFP SKIN LESIONS, OVER 4 09/14/20 24 51633-DFCA SKIN LESIONS, OVER 4 02/10/20 25 17770-MYTA SKIN LESIONS, OVER 4 11/30/19 11548-IWGA SKIN LESIONS, OVER 4 10/28/19 24 92104-KWCZ SKIN LESIONS, OVER 4 01/21/20 24 24324-ZHSI SKIN LESIONS, OVER 4 06/15/20 24 86927-KRYW SKIN LESIONS, OVER 4 04/09/20 24 62509-JSWR SKIN LESIONS, OVER 4 09/02/20 Next Appt Details Provider Name:Arlene Eduardo Jelani , 04/19/2025 09:00:00 AM, [address] [facility], [place], [address], Insurance Providers Payer Name Payer Address Payer Phone Subscriber Number Group Number Insured Name Patient Relationship to Insured Coverage Start Date Coverage End Date [facility] [address] [facility] [place] [address] [phone] [id number] Woody Davila Self - patient is the insured Medical (General) History Medical History History ICD Code covid-19 Broken bones CAD (Cholesterol) Chicken pox High blood pressure Numbness Lyme disease ulcer Supraventricular tachycardia type 2 diabetic Surgical History Surgery Date(Month/Year) foot surgery 2018 neck surgery 2020 carpal tunnel surgery 2022 Left/Right Cabital 2022
== END 2025-03-29 09:57 | disposition home or self-care (01) ==
LOC: HO.HUSH 08:46
PROVIDERS: PCP Internal Medicine; Visit Provider Urology
DX: E11.69 Type 2 diabetes mellitus with other specified complication (principal); N52.1 Erectile dysfunction due to diseases classified elsewhere; N40.0 Benign prostatic hyperplasia without lower urinary tract symptoms
CPT/HCPCS: 99213

== ENCOUNTER 2025-04-04 06:02 | Outpatient (REF) | payer OTHER, SELFPAY ==
--- OUTSIDE RECORDS SUMMARY | 2025-04-04 06:04 | XMS_ITS | Patient Health Record ---
[facility] Organization [facility] Address [address] [place] [address] Care Team Providers Care Bee Rancher Name Role Phone Leonarda Gandhi MD Primary Care Provider Unavaila karen Palomares Arlene Unavailable [phone] Allergies Allergen (clinical drug ingredient) Drug/Non Drug [...] Polyneuropathy due to type 2 diabetes mellitus (236106494) Type 2 diabetes mellitus with diabetic polyneuropathy (E11.42) Active confirmed Problem 201526939 Hammer toe of left foot (M20.42) Active confirmed Problem Localized, primary osteoarthritis of the ankle and/or foot (354982980) Osteoarthritis of left ankle and foot (M19.072) Active confirmed Problem 483910113 Hammertoe of right foot (M20.41) Active confirmed Problem 81253470844795342 Skin ulcer of toe of right foot, limited to breakdown of skin (L97.511) Active confirmed Problem Osteoarthritis of midtarsal joint of right foot (8217807335046039) Osteoarthritis of midtarsal joint of right foot (M19.071) Active confirmed Problem Neuropathic ulcer of left heel, limited to breakdown of skin (L97.421) Active confirmed Response to treatment Problem 09642467651191511 Neuropathic ulcer of left foot, limited to breakdown of skin (L97.521) Active confirmed Response to treatment, Nonapplica ble Vital Signs Blood pressure diastolic 77 mm Hg 02/09/2025 Height 6ft 5in in 02/09/2025 Blood pressure systolic 110 mm Hg 02/09/2025 Weight 320 lbs 02/09/2025 BMI 37.94 kg/m2 02/09/2025 Procedures Procedure Date Ordered Date Performed Result Body Sit e 38802-SGILZUJ NAIL, 6 OR MORE 04/09/2024 N/A 92497-JNHI SKIN LESIONS, OVER 4 04/09/2024 N/A 97936-WJLVLBK NAIL, 6 OR MORE 06/15/2024 N/A 10550 I&D ABSCESS- SIMPLE,SINGLE 06/15/2024 N/A 71464-TOKK SKIN LESIONS, OVER 4 06/15/2024 N/A 28918- Debride <25 sq cm 06/29/2024 N/A 96877-AIFOEBH NAIL, 6 OR MORE 09/14/2024 N/A 16777-XOJO SKIN LESIONS, OVER 4 09/14/2024 N/A 65291-WCHRSEP NAIL, 6 OR MORE 11/30/2024 N/A 86545-GXFT SKIN LESIONS, OVER 4 11/30/2024 N/A 99588-RWPPLLP NAIL, 6 OR MORE 02/09/2025 N/A 08355-TUIF SKIN LESIONS, OVER 4 02/09/2025 N/A Encounters Encounter Location Date Provider Diagnosis [address] [place] [address] 04/09/2024 Arlene Black Type 2 diabetes mellitus with diabetic polyneuropathy E11.42 and Tinea unguium B35.[address] [place] [address] 06/15/2024 Arlene Black Type 2 diabetes mellitus with diabetic polyneuropathy E11.42 ; Tinea unguium B35.1 ; Cellulitis of toe of right foot L03.031 ; Cutaneous abscess of right foot L02.611 ; Hammertoe of right foot M20.41 and Medial crossover toe, right foot M20.5X1 [address] [place] [address] 06/29/2024 Arlene Palomares Type 2 diabetes mellitus with diabetic polyneuropathy E11.42 ; Hammertoe of right foot M20.41 ; Cellulitis of toe of right foot L03.031 ; Cutaneous abscess of right foot L02.611 ; Medial crossover toe, right foot M20.5X1 ; Hammer toe of left foot M20.42 and Skin ulcer of toe of right foot, limited to breakdown of skin L97.[address] [address] 09/14/2024 Arlene Palomares Type 2 diabetes mellitus with diabetic polyneuropathy E11.42 and Tinea unguium B35.[address] [address] 11/30/2024 Arlene Palomares Type 2 diabetes mellitus with diabetic polyneuropathy E11.42 ; Tinea unguium B35.1 and Xerosis of skin L85.[address] [address] 02/09/2025 Arlene Palomares Type 2 diabetes mellitus with diabetic polyneuropathy E11.42 ; Tinea unguium B35.1 and Xerosis of skin L85.3 [facility] [address] [place] [address] 06/15/[address] [address] 06/15/[address] [address] 06/18/2024 Arlene Palomares Assessments Encounter Date Diagnosis [...] Test Name Order Date *Wound Culture 06/15/2024 09312-CXBFDOJ NAIL, 6 OR MORE 06/15/2024 84941-AMRNEIS NAIL, 6 OR MORE 09/14/2024 67671-HLVDHYH NAIL, 6 OR MORE 11/30/2024 50403-JUCBBUA NAIL, 6 OR MORE 09/02/2023 98648-KTZRAVW NAIL, 6 OR MORE 10/28/2023 23444-HNPQIDR NAIL, 6 OR MORE 01/21/2024 83826-ISEJADV NAIL, 6 OR MORE 04/09/2024 03743-AUIJDAC NAIL, 6 OR MORE 02/09/2025 27417- Debride <25 sq cm 10/28/2023 65786- Debride <25 sq cm 06/29/2024 35408 I&D ABSCESS- SIMPLE,SINGLE 024 05397-TGAC SKIN LESIONS, OVER 4 09/14/20 24 73436-QJEL SKIN LESIONS, OVER 4 02/10/20 25 77937-QMHK SKIN LESIONS, OVER 4 11/30/19 31069-PZRE SKIN LESIONS, OVER 4 10/28/19 24 76600-RUSU SKIN LESIONS, OVER 4 01/21/20 24 07218-FIIB SKIN LESIONS, OVER 4 06/15/20 24 46769-WTHF SKIN LESIONS, OVER 4 04/09/20 24 40743-VQGH SKIN LESIONS, OVER 4 09/02/20 Next Appt Details Provider Name:Arlene Eduardo Jelani , 04/19/2025 09:00:00 AM, [address] [facility], [place], [address], Insurance Providers Payer Name Payer Address Payer Phone Subscriber Number Group Number Insured Name Patient Relationship to Insured Coverage Start Date Coverage End Date [facility] [address] [place] [address] [id number] Woody Davila Self - patient is the insured Medical (General) History Medical History History ICD Code covid-19 Broken bones CAD (Cholesterol) Chicken pox High blood pressure Numbness Lyme disease ulcer Supraventricular tachycardia type 2 diabetic Surgical History Surgery Date(Month/Year) foot surgery 2018 neck surgery 2020 carpal tunnel surgery 2022 Left/Right Cabital 2022
[2025-04-06 17:38] LABS: Follicle Stimulating Hormone 5.7 mIU/mL (1.4-12.8)
[2025-04-08 20:28] LABS: Testosterone, Total 212 ng/dL (250-1100)
== END 2025-04-04 06:03 | disposition home or self-care (01) ==
LOC: HO.HMGCLDS 06:02
PROVIDERS: PCP Internal Medicine; Visit Provider Urology
DX: R68.82 Decreased libido (principal); C61 Malignant neoplasm of prostate; N52.1 Erectile dysfunction due to diseases classified elsewhere; E11.69 Type 2 diabetes mellitus with other specified complication; Z12.5 Encounter for screening for malignant neoplasm of prostate
CPT/HCPCS: 36415; 83001; 84153; 84403

== ENCOUNTER 2025-04-26 09:23 | Outpatient (AMB) | payer OTHER, SELFPAY ==
--- NOTE | 2025-04-26 09:24 | A.OFFVIS_ITS ---
Intake Visit Reasons: 4w/Labs Intake Note: Patient is present for 4 WK F/U TELEHEALTH Urology Medication:SILDENAFIL, Antibiotic Allergy:NONE Blood Thinner:NONE Instructional Support Services Director Required: No Accompanied by: Self / Same As Patient Allergies acetaminophen (Acetaminophen) Allergy (Intermediate, Verified 04/26/25 09:25) rash from liquid form after prolonged use lisinopril Adverse Reaction (Intermediate, Verified 04/26/25 09:25) Cough HPI Comments Details: Woody is a pleasant male. He is a patient of Dr. Gandhi. He is seen for the following urologic conditions - erectile dysfunction in setting of diabetes - lower urinary tract symptoms Telemedicine Evaluation 15 min Consultation [email or web address] Hui Video Follow-up from use of tadalafil 5 mg daily Still had heartburn Responding well to sildenafil Discussed Testosterone mu-ism in male diabetic Will start 12.5 mg enclomiphene Labs 2 months Current HbA1c 6.2 Diabetes managed with metformin Discussed weight loss and use of Tirzepatide Urinary Symptoms Review - Nocturia with frequent nighttime urination, occurring sometimes several times in succession. - No significant issues with the force of the urinary stream reported. - Symptoms have been persistent for an unspecified duration. Previous treatment with Tamsulosin was ineffective Erectile dysfunction related diabetes Has some urgency frequency Nocturia progressive Erectile dysfunction Has heartburn with high-dose tadalafil Labs - 04/20 T 212 PSA 0.3 PFSH Medical History History of snoring Hematuria Hyperkalemia BPH (benign prostatic hyperplasia) Carpal tunnel syndrome Annual physical exam Type 2 diabetes mellitus Cervical spine degeneration Hyperlipidemia Overweight Ankle fracture, left SVT (supraventricular tachycardia) Peripheral neuropathy Chronic foot ulcer Surgical History Hx of colonoscopy History of carpal tunnel surgery of right wrist H/O cardiac radiofrequency ablation H/O foot surgery [place] teeth extracted Family History Father Lung cancer Mother No problems noted. 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 Cognitive needs: No Hearing needs: No Vision needs: No Review of Systems Const All systems reviewed & are unremarkable except as noted in HPI and below Reports no additional complaints Resp Reports no additional complaints GI Reports no additional complaints Reports as per HPI Musc Reports no additional complaints Physical Exam Telemedicine evaluation Appropriate responses Regular breathing rate and rhythm HEENT Head: Yes normal to inspection Ears: hearing grossly normal bilaterally Eyes General: appearance normal, both eyes and all related structures Neck Neck: Yes normal visual inspection Chest Chest palpation & inspection: normal inspection of the chest Resp Effort & Inspection: normal respiratory effort and able to speak in complete sentences Telehealth Telehealth Telehealth Platform: [email or web address] Location of provider rendering services: practice address Location of patient: address on file Patient Identification confirmed using: Name, : Yes Telehealth method: video Patient verbally consented to treatment: Yes Patient verbally consented to billing insurance company: Yes Patient informed of any privacy concerns related to visit: Yes Minutes spent on Phone/Video with Pt.: 15 Assessment & Plan Assessment & Plan (1) Hypogonadism in male: Code(s): E29.1 - Testicular hypofunction Category: Medical Plan Three-month follow-up Orders: Orders Lutenizing Hormone 2 Months E11.69 - Type 2 diabetes mellitus with other specified complication, E29.1 - Testicular hypofunction, N52.1 - Erectile dysfunction due to diseases classified elsewhere Testosterone, Total 2 Months E29.1 - Testicular hypofunction Medications: New [enclomiphene] Daily - Fax to [facility] 1 tab PO DAILY 90 tabs 0RF 90 days E29.1 - Testicular hypofunction Patient Instructions: This note is constructed using voice recognition software. While every effort has been made to ensure accuracy equal employment opportunity officer errors may have been included. Imaging studies, laboratory and physical exam results were discussed and reviewed in detail. No major barriers to patient understanding were identified. An opportunity to ask questions regarding the treatment plan was provided. All questions were answered. The patient expressed understanding and agreement with the above treatment plan. The patient is aware they should contact our office by phone for worsening of their current condition or the appearance of new urologic symptoms. Compliance is encouraged with any medications and followup testing that is ordered. It is a privilege to participate in the urologic care of your patient. If you have any questions or concerns regarding treatment for the above conditions, or other urologic issues, please do not hesitate to contact me. The office telephone contact is [phone]. Sincerely, Dr Rahul Hemphill MD, [facility] - Urology Compassionate Specialist Care for the Genitourinary System Coding Level of Care Code Tele Est Pt Level 4 (59010) Diagnoses Hypogonadism in male E29.1
--- OUTSIDE RECORDS SUMMARY | 2025-04-26 10:01 | XMS_ITS | Patient Health Record ---
Author Organization [facility] Address [address] [place] [address] Care Team Providers Care Superintendent Pressure Name Role Phone Leonarda Gandhi MD Primary Care Provider Unavaila karen Palomares Arlene Unavailable [phone] Allergies Allergen (clinical drug ingredient) Drug/Non Drug [...] me al Orally Once a day Not-Taking Ciprofloxacin HCl 500 MG 1 tablet Orally every 12 hrs; Duration: 7 days 06/18/2024 Not-Taking Cephalexin 500 MG 1 capsule Orally tatiana ry 8 hrs; Duration: 10 days Not-Takin g Sildenafil Citrate 100 MG Oral; Duration: 30 Days Acti ve Ammonium Lactate 12 % 1 application Exte rnally Twice a day; Duration: 30 days Active metFORMIN HCl ER 750 MG Oral; Duration: 90 Days Active Extra Depth Orthopedic Shoes (1 Pair) with Customized Heat Molded Multidensity Innersoles (3 Pair) as directed Dx: NIDDM/Polyneuropathy (E11.42), Hammertoe Foot Deformity (M20.41,M20.42), Preulcerative Skin Lesion(s) (L85.1 06/29/2024 Active Olmesartan Medoxomil 20 MG 1 tablet Orally Once a day Active Atorvastatin Calcium 20 MG 1 tablet Orally Once a day Active Mounjaro 2.5 MG/0.5ML as directed Subcutaneous Active Immunizations Vaccine Route Administration Date Status Comme nts Influenza Unknown 01/21/2024 Refused Influenza Unknown 04/19/2025 Refused Social History Tobacco Use: Social History [...] Problem Status W/U Status Risk Notes Problem Type 2 diabetes mellitus with diabetic polyneuropathy (E11.42) Active confirmed Vital Signs Blood pressure diastolic 77 mm Hg 04/19/2025 Height 6ft 5in in 04/19/2025 Blood pressure systolic 110 mm Hg 04/19/2025 Weight 320 lbs 04/19/2025 BMI 37.94 kg/m2 04/19/2025 Procedures Procedure Date Ordered Date Performed Result Body Sit e 06735-ULQEFDP NAIL, 6 OR MORE 06/15/2024 N/A 94062 I&D ABSCESS- SIMPLE,SINGLE 06/15/2024 N/A 12309-OVUT SKIN LESIONS, OVER 4 06/15/2024 N/A 58554- Debride <25 sq cm 06/29/2024 N/A 93241-GCRLNJY NAIL, 6 OR MORE 09/14/2024 N/A 70914-YNCL SKIN LESIONS, OVER 4 09/14/2024 N/A 20194-BVQHCYF NAIL, 6 OR MORE 11/30/2024 N/A 35807-UXBJ SKIN LESIONS, OVER 4 11/30/2024 N/A 29844-HYDSXGO NAIL, 6 OR MORE 02/09/2025 N/A 62525-LUUA SKIN LESIONS, OVER 4 02/09/2025 N/A 51390-DBCCGEZ NAIL, 6 OR MORE 04/19/2025 N/A 75998-ZHDO SKIN LESIONS, OVER 4 04/19/2025 N/A Encounters Encounter Location Date Provider Diagnosis [address] [address] 06/15/2024 Arlene Black Type 2 diabetes mellitus with diabetic polyneuropathy E11.42 ; Tinea unguium B35.1 ; Cellulitis of toe of right foot L03.031 ; Cutaneous abscess of right foot L02.611 ; Hammertoe of right foot M20.41 and Medial crossover toe, right foot M20.5X1 [address] [address] 06/29/2024 Arlene Black Type 2 diabetes mellitus with diabetic polyneuropathy E11.42 ; Hammertoe of right foot M20.41 ; Cellulitis of toe of right foot L03.031 ; Cutaneous abscess of right foot L02.611 ; Medial crossover toe, right foot M20.5X1 ; Hammer toe of left foot M20.42 and Skin ulcer of toe of right foot, limited to breakdown of skin L97.[address] [address] 09/14/2024 Arlene Black Type 2 diabetes mellitus with diabetic polyneuropathy E11.42 and Tinea unguium B35.[address] [address] 11/30/2024 Arlene Black Type 2 diabetes mellitus with diabetic polyneuropathy E11.42 ; Tinea unguium B35.1 and Xerosis of skin L85.[address] [place] [address] 02/09/2025 Arlene Black Type 2 diabetes mellitus with diabetic polyneuropathy E11.42 ; Tinea unguium B35.1 and Xerosis of skin L85.[address] [address] 04/19/2025 Arlene Black Type 2 diabetes mellitus with diabetic polyneuropathy E11.42 and Tinea unguium B35.1 [facility] [place] [address] [facility] [address] [place] [address] 06/15/2024 Arlene Black [facility] [place] [address] [place] [address] 06/15/2024 Arlene Jelani [facility] [address] [address] 06/18/2024 Arlene Palomares Assessments Encounter Date Diagnosis (ICD Code) Assessment Notes Treatment Notes Treatment Clinical Notes Section Notes 06/15/2024 Type 2 diabetes mellitus with diabetic [...] mellitus with diabetic polyneuropathy (ICD-10 - E11.42) 04/19/2025 Type 2 diabetes mellitus with diabetic polyneuropathy (ICD-10 - E11.42) 04/19/2025 Tinea unguium (ICD-10 - B35.1) 02/09/2025 Tinea unguium (ICD-10 - B35.1) 06/29/2024 [...] Test Name Order Date *Wound Culture 06/15/2024 30513-RSJFDGA NAIL, 6 OR MORE 06/15/2024 13483-WAPQWXO NAIL, 6 OR MORE 09/14/2024 25433-SWFPEPN NAIL, 6 OR MORE 11/30/2024 07798-VSVYKQF NAIL, 6 OR MORE 09/02/2023 95562-DOSPCUP NAIL, 6 OR MORE 10/28/2023 73099-CNGIAJJ NAIL, 6 OR MORE 01/21/2024 51027-ELXYWYD NAIL, 6 OR MORE 04/09/2024 89459-GRZUYSC NAIL, 6 OR MORE 02/09/2025 93779-NJZNVCI NAIL, 6 OR MORE 04/19/2025 15605- Debride <25 sq cm 10/28/2023 57461- Debride <25 sq cm 06/29/2024 25846 I&D ABSCESS- SIMPLE,SINGLE 024 85860-PWNZ SKIN LESIONS, OVER 4 09/14/20 24 49727-DRQR SKIN LESIONS, OVER 4 02/10/20 25 80305-BWYB SKIN LESIONS, OVER 4 11/30/19 25 14283-XFGG SKIN LESIONS, OVER 4 10/28/19 24 78303-LIXE SKIN LESIONS, OVER 4 01/21/20 24 13849-CNUF SKIN LESIONS, OVER 4 06/15/20 24 15524-KSUA SKIN LESIONS, OVER 4 04/09/20 24 31699-YIMI SKIN LESIONS, OVER 4 09/02/20 23 62776-XOJH SKIN LESIONS, OVER 4 04/19/20 Next Appt Details Provider Name:Arlene Palomares , 06/22/2025 08:30:00 AM, [address] [facility], [place], [address], Insurance Providers Payer Name Payer Address Payer Phone Subscriber Number Group Number Insured Name Patient Relationship to Insured Coverage Start Date Coverage End Date [employer] [address] [place] [address] [id number] Woody Davila Self - patient is the insured Medical (General) History Medical History History ICD Code covid-19 Broken bones CAD (Cholesterol) Chicken pox High blood pressure Numbness Lyme disease ulcer Supraventricular tachycardia type 2 diabetic Osteoarthritis of left ankle and foot M1 9.072 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
== END 2025-04-26 10:01 | disposition home or self-care (01) ==
LOC: HO.HUSH 09:23
PROVIDERS: PCP Internal Medicine; Visit Provider Urology
DX: E29.1 Testicular hypofunction (principal)
CPT/HCPCS: 99214

== ENCOUNTER 2025-07-08 06:23 | Outpatient (REF) | payer OTHER, SELFPAY ==
--- OUTSIDE RECORDS SUMMARY | 2025-07-08 06:25 | XMS_ITS | Patient Health Record ---
[facility] Address [address] [place] [address] Care Team Providers Care Administrative Tech Name Role Phone Leonarda Gandhi MD Primary Care Provider Unavaila karen Palomares Arlene Unavailable [phone] Allergies Allergen (clinical drug ingredient) Drug/Non Drug [...] 12 hrs; Duration: 7 days 06/18/2024 Not-Taking metFORMIN HCl 1000 MG 1 tablet with a me al Orally Once a day Not-Taking Olmesartan Medoxomil 20 MG 1 tablet Orally Once a day Active Extra Depth Orthopedic Shoes (1 Pair) with Customized Heat Molded Multidensity Innersoles (3 Pair) as directed Dx: NIDDM/Polyneuropathy (E11.42), Hammertoe Foot Deformity (M20.41,M20.42), Preulcerative Skin Lesion(s) (L85.1 06/29/2024 Active Mounjaro 2.5 MG/0.5ML as directed Subcutaneous Active Extra Depth Orthopedic Shoes (1 Pair) with Customized Heat Molded Multidensity Innersoles (3 Pair) Dx: NIDDM/Polyneuropathy (E11.42), Hammertoe Foot Deformity (M20.41,M20.42), Preulcerative Skin Lesion(s) (L85.1); Duration: 365 days 06/22/2025 Active Atorvastatin Calcium 20 MG 1 tablet Orally Once a day Active Sildenafil Citrate 100 MG Oral; Duration: 30 Days Not- Taking Cephalexin 500 MG 1 capsule Orally tatiana ry 8 hrs; Duration: 10 days Not-Takin g metFORMIN HCl ER 750 MG Oral; Duration: 90 Days Active Ammonium Lactate 12 % 1 application Exte rnally Twice a day; Duration: 30 days Active Immunizations Vaccine Route Administration Date Status [...] you were drinking in the past year? 1 or 2 drinks (0 point) How often did you have six o r more drinks on one occasion in the past year? Less than monthly (1 point) Points 2 Interpretation Negative Problems Problem Type SNOMED Code ICD Code Onset Dates Problem Status W/U Status Risk Notes Problem Acquired hammer toe of right foot (5480140194472272 ) Other hammer toe(s) (acquired), right foot (M20.41) Active confirmed Problem Acquired hammer toe of left foot (1259590332026233 ) Other hammer toe(s) (acquired), left foot (M20.42) Active confirmed Problem Polyneuropathy due to type 2 diabetes mellitus (274614333) Type 2 diabetes mellitus with diabetic polyneuropathy (E11.42) Active confirmed Vital Signs Blood pressure diastolic 77 mm Hg 06/22/2025 Height 6ft 5in in 06/22/2025 Blood pressure systolic 110 mm Hg 06/22/2025 Weight 316 lbs 06/22/2025 BMI 37.47 kg/m2 06/22/2025 Procedures Procedure Date Ordered Date Performed Result Body Sit e 82360-BOKBPIE NAIL, 6 OR MORE 09/14/2024 N/A 47482-KQPV SKIN LESIONS, OVER 4 09/14/2024 N/A 31604-WRFDCDX NAIL, 6 OR MORE 11/30/2024 N/A 80360-SVQK SKIN LESIONS, OVER 4 11/30/2024 N/A 34712-BZJLFEE NAIL, 6 OR MORE 02/09/2025 N/A 03291-SREG SKIN LESIONS, OVER 4 02/09/2025 N/A 17988-ASUQMFY NAIL, 6 OR MORE 04/19/2025 N/A 78538-KPCH SKIN LESIONS, OVER 4 04/19/2025 N/A 61209-KRRKMYA NAIL, 6 OR MORE 06/22/2025 N/A 28136-KRKB SKIN LESIONS, OVER 4 06/22/2025 N/A Encounters Encounter Location Date Provider Diagnosis [facility] [address] [address] 09/14/2024 Arlene Black Type 2 diabetes helen itus with diabetic polyneuropathy E11.42 and Tinea unguium B35.[address] [address] 11/30/2024 Arlene Black Type 2 diabetes helen itus with diabetic polyneuropathy E11.42 ; Tinea unguium B35.1 and Xerosis of skin L85.[address] [address] 02/09/2025 Arlene Black Type 2 diabetes helen itus with diabetic polyneuropathy E11.42 ; Tinea unguium B35.1 and Xerosis of skin L85.[address] [address] 04/19/2025 Arlene Palomares Type 2 diabetes helen itus with diabetic polyneuropathy E11.42 and Tinea unguium B35.1 [facility] [address] [address] 06/22/2025 Arlene Black Type 2 diabetes helen itus with diabetic polyneuropathy E11.42 ; Other hammer toe(s) (acquired), right foot M20.41 ; Tinea unguium B35.1 and Other hammer toe(s) (acquired), left foot M20.42 Assessments Encounter Date Diagnosis (ICD Code) Assessment [...] E11.42) 04/19/2025 Tinea unguium (ICD-10 - B35.1) 06/22/2025 Other hammer toe(s) (acquired), right foot (ICD-10 - M20.41) Patient Educated with: DIABETIC FOOT CARE INSTRUCTIONS. pdf (DIABETIC FOOT CARE INSTRUCTIONS. pdf) 06/22/2025 Type 2 diabetes mellitus with diabetic polyneuropathy (ICD-10 - E11.42) 06/22/2025 Tinea unguium (ICD-10 - B35.1) 02/09/2025 Tinea unguium (ICD-10 - B35.1) 11/30/2024 Tinea unguium (ICD-10 - B35.1) 11/30/2024 Xerosis of skin (ICD-10 - L85.3) 02/09/2025 Xerosis of skin (ICD-10 - L85.3) 06/22/2025 Other hammer toe(s) (acquired), left foot (ICD-10 - M20.42) Plan Of Treatment Pending Test Test Name Order Date *Wound Culture 06/15/2024 06440-IQNIRBQ NAIL, 6 OR MORE 06/15/2024 66885-LYPEYRV NAIL, 6 OR MORE 09/14/2024 54273-ZJAYLRW NAIL, 6 OR MORE 11/30/2024 26730-AQONEXN NAIL, 6 OR MORE 09/02/2023 76324-RMMEAIT NAIL, 6 OR MORE 10/28/2023 24374-FYKMWUM NAIL, 6 OR MORE 01/21/2024 22606-CCEYZDN NAIL, 6 OR MORE 04/09/2024 40393-KMQIUIX NAIL, 6 OR MORE 02/09/2025 04241-FBBKXOM NAIL, 6 OR MORE 04/19/2025 79905-ECDSZIN NAIL, 6 OR MORE 06/22/2025 75218- Debride <25 sq cm 10/28/2023 84787- Debride <25 sq cm 06/29/2024 90092 I&D ABSCESS- SIMPLE,SINGLE 024 61281-PIZM SKIN LESIONS, OVER 4 09/14/20 24 23346-SRNQ SKIN LESIONS, OVER 4 02/10/20 25 05314-SIRF SKIN LESIONS, OVER 4 11/30/19 25 05333-AIFH SKIN LESIONS, OVER 4 10/28/19 24 88130-KFPD SKIN LESIONS, OVER 4 01/21/20 24 52524-CLNB SKIN LESIONS, OVER 4 06/15/20 24 26477-SSHV SKIN LESIONS, OVER 4 04/09/20 24 95959-XAMH SKIN LESIONS, OVER 4 09/02/20 23 84805-HVWH SKIN LESIONS, OVER 4 06/22/20 25 25208-QHRV SKIN LESIONS, OVER 4 04/19/20 25 Next Appt Details Provider Name:Arlene Palomares , 09/07/2025 08:15:00 AM, [address] [facility], [place], [address], Insurance Providers Payer Name Payer Address Payer Phone Subscriber Number Group Number Insured Name Patient Relationship to Insured Coverage Start Date Coverage End Date [facility] [address] [place] [address] [id number] Woody Davila Self - patient is [...]
[2025-07-08 10:36] LABS: MANUAL DIFF FLAG NO
[2025-07-08 10:41] LABS: Hematocrit 49.0 % (42.0-52.0); Hemoglobin 16.7 g/dl (14.0-18.0); Imm Gran Abs Auto 0.05 X10*3/uL (0.00-0.03); Imm Gran Pct Auto 0.4 % (0.0-0.4); Lymphocytes Absolute Auto 2.7 X10*3/uL (1.2-4.9); Mean Corpuscular HGB Conc 34.1 g/dl (31.0-36.0); Mean Corpuscular Hemoglobin 30.0 pg (27.0-33.0); Mean Corpuscular Volume 88.0 fL (80.0-98.0); NRBC Abs Auto 0.000 X10*3/uL (0.0-0.012); NRBC Pct Auto 0.0 /100WBC (0.0-0.2); Platelet Count 298 X10*3/uL (160-400); Red Blood Count 5.57 X10*6/uL (4.60-5.80); White Blood Count 11.6 X10*3/uL (4.8-10.8)
[2025-07-08 11:00] LABS: Alanine Aminotransferase 17 U/L (0-40); Albumin Level 4.4 g/dL (3.5-5.0); Alkaline Phosphatase 61 U/L (39-117); Anion Gap 13 (12-20); Aspartate Amino Transferase 26 U/L (5-37); Blood Urea Nitrogen 10 mg/dL (9-16); Calcium 9.1 mg/dL (8.4-10.2); Carbon Dioxide 25 mmol/L (22-29); Chloride 107 mmol/L (96-108); Estimated Glomerular Filt Rate > 60; Potassium 5.0 mmol/L (3.3-5.1); Sodium 140 mmol/L (135-145); Total Protein 7.2 g/dL (6.5-8.0)
[2025-07-08 11:15] LABS: Hemoglobin A1C 161.8083 umol/L; Total Hemoglobin (HGBA1C) 4318.1301 umol/L
== END 2025-07-08 06:24 | disposition home or self-care (01) ==
LOC: HO.HMGCLDS 06:23
PROVIDERS: PCP Internal Medicine; Referring Provider Urology; Visit Provider Internal Medicine
DX: Z00.00 Encounter for general adult medical examination without abnormal findings (principal); I10 Essential (primary) hypertension; E11.69 Type 2 diabetes mellitus with other specified complication; N52.1 Erectile dysfunction due to diseases classified elsewhere; E29.1 Testicular hypofunction
CPT/HCPCS: 36415; 80053; 82043; 82570; 83002; 83036; 84403; 85025

== ENCOUNTER 2025-07-13 12:17 | Outpatient (AMB) | payer OTHER, SELFPAY ==
[2025-07-13 12:26] VITALS: BP 118/76; PULSE 81; O2SAT 97; BMI 37.5
--- NOTE | 2025-07-13 12:26 | A.OFFPC_ITS ---
Vital Signs 07/13/25 12:26 Height 6 ft 5 in Weight 316 lb BMI 37.5 BP 118/76 Blood Pressure Location Lt brachial Position Sitting Pulse 81 Pulse Source Pulse Oximeter Pulse Oximetry (%) 97 Intake Visit Reasons: Follow up [place] Required: No Accompanied by: Spouse Allergies acetaminophen (Acetaminophen) Allergy (Intermediate, Verified 07/13/25 12:30) rash from liquid form after prolonged use lisinopril Adverse Reaction (Intermediate, Verified 07/13/25 12:30) Cough Medication List - Last Reconciled 07/13/25 by Leonarda Gandhi MD atorvastatin 20 mg PO DAILY [enclomiphene 1 tab PO DAILY 90 days] metformin ER 750 mg PO DAILY Mounjaro (tirzepatide) 2.5 mg (0.5 mL) subcut QWEEK NS olmesartan 20 mg PO DAILY Tobacco use date assessed: 03/14/25 Dental Screening Dental Screen Date: 03/14/25 HPI Follow up HPI Details Patient presents for the follow-up of type 2 diabetes hypertension and hyperlipidemia. He lost 20 lb on Mounjaro and reports intermittent constipation that he has been managing with stool softener. [facility] Medical History History of snoring Hematuria Hyperkalemia BPH (benign prostatic hyperplasia) Carpal tunnel syndrome Annual physical exam Type 2 diabetes mellitus Cervical spine degeneration Hyperlipidemia Overweight Ankle fracture, left SVT (supraventricular tachycardia) Peripheral neuropathy Chronic foot ulcer Surgical History Hx of colonoscopy History of carpal tunnel surgery of right wrist H/O cardiac radiofrequency ablation H/O foot surgery [place] teeth extracted Family History Father Lung cancer Mother No problems noted. 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 1. Little interest or pleasure in doing things: not at all 2. Feeling down, depressed, or hopeless: not at all 3. Trouble falling or staying asleep, or sleeping too much: not at all 4. Feeling tired or having little energy: not at all 5. Poor appetite or overeating: not at all 6. Feeling bad about yourself - or that you are a failure or have let yourself or your family down: not at all 7. Trouble concentrating on things, such as reading the newspaper or watching television: not at all 8. Moving or speaking so slowly that other people could have noticed. Or the opposite - being so fidgety or restless that you have been moving around a lot more than usual: not at all 9. Thoughts that you would be better off or of hurting yourself in some way: not at all Total score: 0 Depression Screening Interpretation: Negative Depression Screening Done: Yes Source: Developed by Drs. Woody Rocha, Franny Pruitt, Luis Christianson and colleagues, with an educational cathleen from [employer]. Thrive Questionnaire Date Thrive assessed: 03/07/25 I am a: Patient What is your living situation today?: I have a steady place to live Within the past 12 months, did the food you bought not last and you didn't have the money to get more?: Never true Within the past 12 months, did you worry whether your food would run out before you got money to buy more?: Never true Do you have trouble paying for medicines?: No Do you have trouble getting transportation to medical appointments?: No Do you have trouble paying your heating and electricity bill?: No Do you have trouble taking care of your child, family member or friend?: No Do you have trouble with day-to-day activities such as bathing, preparing meals, shopping, managing finances, etc.?: No Are you currently unemployed and looking for a job?: No Are you interested in more education?: No Please select the resources that you would like help with: None Currently or been in a relationship where the following occur: No concerns reported THRIVE Score: 0 AUDIT C Alcohol Use Questionnaire (AUDIT-C) 1. How often do you have a drink containing alcohol?: Monthly or less 2. How many drinks containing alcohol do you have on a typical day when you are drinking?: 1 or 2 3. How often do you have six or more drinks on one occasion?: Never Total Score: 1 HAIDER-7 AMB Questionnaire HAIDER-7 Date HAIDER - 7 assessed: 03/14/25 Feeling nervous, anxious, or on edge: 0 = Not at all Not being able to stop or control worryin = Not at all Worrying too much about different things: 0 = Not at all Trouble relaxin = Not at all Being so restless that it is hard to sit still: 0 = Not at all Becoming easily annoyed or irritable: 0 = Not at all Feeling afraid as if something awful might happen: 0 = Not at all Total HAIDER-7 score (0-4 normal; 5-9 mild; 10-14 moderate; 15-21 severe): 0 Source: Developed by Drs. Woody Rocha, Franny Pruitt, Luis Christianson and colleagues, with an educational cathleen from [employer]. Review of Systems Const All systems reviewed & are unremarkable except as noted in HPI and below Eyes Reports no additional complaints ENT Reports no additional complaints Card Reports no additional complaints Resp Reports no additional complaints GI Reports no additional complaints Reports no additional complaints Physical exam (Primary Care) Vital Signs: Last Vital Signs Pulse 81 07/13/25 12:26 BP 118/76 07/13/25 12:26 Pulse Ox 97 07/13/25 12:26 BMI result Body Mass Index 37.5 Tobacco/Smoking Status: Tobacco use Status Tobacco use date assessed 03/14/25 07/13/25 12:27 Patient Tobacco Use Status Current everyday Tobacco 07/13/25 12:27 Tobacco use type Cigarette 07/13/25 12:27 e-Cigarette/Vaping Use Never Used 07/13/25 12:27 PHQ-9: PHQ-9 Score PHQ-9: Total score 0 07/13/25 12:32 Depression Screening Interpretation: Negative Thrive Assessment: Date of Thrive Assessment Date Thrive assessed 03/07/25 07/13/25 12:27 Currently or been in a relationship where the following occur: No concerns reported Const General: no acute distress HENMT Head: Yes normal to inspection Mouth: Normal oral and palatal mucosa present Eyes General: appearance normal, both eyes and all related structures Resp Effort & Inspection: normal respiratory effort Auscultation: clear to auscultation bilaterally Cardio Rhythm: regular rhythm Heart sounds: S1 normal heart sound present and S2 normal heart sound present GI Inspection: Yes normal to inspection Palpation (GI): Soft to palpation Percussion: Yes normal to percussion Auscultation: normal bowel sounds Coding Level of Care Code Est Pt Level 4 (78425) Diagnoses HTN (hypertension) I10 Hyperlipidemia E78.5 Type 2 diabetes mellitus E11.9 Overweight E66.3 Assessment & Plan Assessment & Plan (1) HTN (hypertension): Code(s): I10 - Essential (primary) hypertension Category: Medical Plan: Continue olmesartan (2) Hyperlipidemia: Code(s): E78.5 - Hyperlipidemia, unspecified Category: Medical Plan: Continue statin (3) Type 2 diabetes mellitus: Code(s): E11.9 - Type 2 diabetes mellitus without complications Category: Medical Plan: A1c is 5.6, continue ADA diet regular exercise weight loss continue current medications. He was advised to add fiber and fluids intake and continue stool softener for constipation. Follow-up in 3 months with a fasting labs before (4) Overweight: Code(s): E66.3 - Overweight Category: Medical Plan: Increase physical activity decreasing caloric intake discussed with the patient. He will be referred to weight management program Orders: Orders Microalbumin, Random (w Creat) 3 Months E11.9 - Type 2 diabetes mellitus without complications, E78.5 - Hyperlipidemia, unspecified, I10 - Essential (primary) hypertension Comprehensive Salters. Panel Fast 3 Months E11.9 - Type 2 diabetes mellitus without complications, E78.5 - Hyperlipidemia, unspecified, I10 - Essential (primary) hypertension Hemoglobin A1c 3 Months E11.9 - Type 2 diabetes mellitus without complications, E78.5 - Hyperlipidemia, unspecified, I10 - Essential (primary) hypertension Complete Blood Count Auto Diff 3 Months E11.9 - Type 2 diabetes mellitus without complications, E78.5 - Hyperlipidemia, unspecified, I10 - Essential (primary) hypertension Lipid Panel 3 Months E11.9 - Type 2 diabetes mellitus without complications, E78.5 - Hyperlipidemia, unspecified, I10 - Essential (primary) hypertension Referrals Medical Weight Management Referral E66.3 - Overweight Medications: Refilled atorvastatin 20 mg PO DAILY 90 tabs 3RF metformin ER 750 mg PO DAILY 90 tabs 3RF olmesartan 20 mg PO DAILY 90 tabs 3RF I10 - Essential (primary) hypertension Mounjaro (tirzepatide) 2.5 mg (0.5 mL) subcut QWEEK 6 mL 1RF NS
--- OUTSIDE RECORDS SUMMARY | 2025-07-13 15:46 | XMS_ITS | Patient Health Record ---
Author Organization [facility] Address [address] [place] [address] Care Team Providers Care Volcanology Teacher Name Role Phone Leonarda Gandhi MD Primary Care Provider Unavaila karen Palomares Arlene Unavailable [phone] Allergies Allergen (clinical drug ingredient) Drug/Non Drug [...] Problem Acquired hammer toe of right foot ([id number] ) Other hammer toe(s) (acquired), right foot (M20.41) Active confirmed Problem Acquired hammer toe of left foot (3943079011576476 ) Other hammer toe(s) (acquired), left foot (M20.42) Active confirmed Problem Polyneuropathy due to type 2 diabetes mellitus (401667189) Type 2 diabetes mellitus with diabetic polyneuropathy (E11.42) Active confirmed Vital Signs Blood pressure diastolic 77 mm Hg 06/22/2025 Height 6ft 5in in 06/22/2025 Blood pressure systolic 110 mm Hg 06/22/2025 Weight 316 lbs 06/22/2025 BMI 37.47 kg/m2 06/22/2025 Procedures Procedure Date Ordered Date Performed Result Body Sit e 97633-ETTLFAE NAIL, 6 OR MORE 09/14/2024 N/A 24663-TUHG SKIN LESIONS, OVER 4 09/14/2024 N/A 14883-PZKQNMO NAIL, 6 OR MORE 11/30/2024 N/A 88094-WSHU SKIN LESIONS, OVER 4 11/30/2024 N/A 98808-RIJSZIP NAIL, 6 OR MORE 02/09/2025 N/A 68867-WBHX SKIN LESIONS, OVER 4 02/09/2025 N/A 53646-RNGQCHQ NAIL, 6 OR MORE 04/19/2025 N/A 13387-LAIY SKIN LESIONS, OVER 4 04/19/2025 N/A 59717-KDFOATH NAIL, 6 OR MORE 06/22/2025 N/A 80700-SQHU SKIN LESIONS, OVER 4 06/22/2025 N/A Encounters Encounter [facility] [address] [address] [facility]/14/[facility]24 Arlene Black Type 2 diabetes helen itus with diabetic polyneuropathy E11.42 and Tinea unguium B35.[address] [address] 11/30/2024 Arlene Black Type 2 diabetes helen itus with diabetic polyneuropathy E11.42 ; Tinea unguium B35.1 and Xerosis of skin L85.[address] [address] 02/09/2025 Arlene Black Type 2 diabetes helen itus with diabetic polyneuropathy E11.42 ; Tinea unguium B35.1 and Xerosis of skin L85.[address] [address] 04/19/2025 Arlene Palomares Type 2 diabetes helen itus with diabetic polyneuropathy E11.42 and Tinea unguium B35.1 [facility] [address] [address] 06/22/2025 Arlene Black Type 2 diabetes helen [...] E11.42) 02/09/2025 Tinea unguium (ICD-10 - B35.1) 06/22/2025 Tinea unguium (ICD-10 - B35.1) 11/30/2024 Tinea unguium (ICD-10 - B35.1) 11/30/2024 Xerosis of skin (ICD-10 - L85.3) 06/22/2025 Other hammer toe(s) (acquired), left foot (ICD-10 - M20.42) 02/09/2025 Xerosis of skin (ICD-10 - L85.3) Plan Of Treatment Pending Test Test Name Order Date *Wound Culture 06/15/2024 85047-LKPTZUU NAIL, 6 OR MORE 06/15/2024 08246-LGNWZVP NAIL, 6 OR MORE 09/14/2024 10086-JCGTTOD NAIL, 6 OR MORE 11/30/2024 37314-RLFUPGW NAIL, 6 OR MORE 09/02/2023 40532-OTJYJFX NAIL, 6 OR MORE 10/28/2023 05676-MDDDIEX NAIL, 6 OR MORE 01/21/2024 91685-NECJIHP NAIL, 6 OR MORE 04/09/2024 71873-EMSLDMQ NAIL, 6 OR MORE 02/09/2025 64603-HOJTANN NAIL, 6 OR MORE 04/19/2025 42029-FLYUIOD NAIL, 6 OR MORE 06/22/2025 25995- Debride <25 sq cm 10/28/2023 63432- Debride <25 sq cm 06/29/2024 15411 I&D ABSCESS- SIMPLE,SINGLE 024 34740-FKRI SKIN LESIONS, OVER 4 09/14/20 24 74865-BLPL SKIN LESIONS, OVER 4 02/10/20 25 45864-UWEF SKIN LESIONS, OVER 4 11/30/19 25 95911-ITTL SKIN LESIONS, OVER 4 10/28/19 24 54205-DFYG SKIN LESIONS, OVER 4 01/21/20 24 88583-SXAW SKIN LESIONS, OVER 4 06/15/20 24 46195-MUTB SKIN LESIONS, OVER 4 04/09/20 24 65988-OTGN SKIN LESIONS, OVER 4 09/02/20 23 86457-YSJD SKIN LESIONS, OVER 4 06/22/20 25 41059-SMAR SKIN LESIONS, OVER 4 04/19/20 25 Next Appt Details Provider Name:Arlene Palomares , 09/07/2025 08:15:00 AM, 1983 [facility], [place], [address], Insurance Providers Payer Name Payer Address Payer Phone Subscriber Number Group Number Insured Name Patient Relationship to Insured Coverage Start Date Coverage End Date [facility] [address] [place] [address] [phone] [id number] Woody Davila Self - patient is [...]
== END 2025-07-13 13:37 | disposition home or self-care (01) ==
LOC: HO.HMCC 12:19
PROVIDERS: PCP Internal Medicine; Visit Provider Internal Medicine
DX: I10 Essential (primary) hypertension (principal); E78.5 Hyperlipidemia, unspecified; E11.9 Type 2 diabetes mellitus without complications; E66.3 Overweight

== ENCOUNTER 2025-07-28 09:58 | Outpatient (AMB) | payer OTHER, SELFPAY ==
--- NOTE | 2025-07-28 09:58 | MHC.OFFVIS ---
Intake Visit Reasons: 3m/labs Intake Note: Patient is present for 3 MO F/U TELEHEALTH Urology Medication:SILDENAFIL,ENCLOMEPHINE Antibiotic Allergy:NONE Blood Thinner:NONE Bunk Assembler Required: No Accompanied by: Self / Same As Patient Allergies acetaminophen (Acetaminophen) Allergy (Intermediate, Verified 07/28/25 09:59) rash from liquid form after prolonged use lisinopril Adverse Reaction (Intermediate, Verified 07/28/25 09:59) Cough HPI Comments Details: Woody is a pleasant male. He is a patient of Dr. Gandhi. He is seen for the following urologic conditions - erectile dysfunction in setting of diabetes - lower urinary tract symptoms Telemedicine Evaluation 15 min Consultation Zank Hui Video Two month follow-up Effective response to 12.5 mg enclomiphene Was able to hike 10 miles for deer hunting. Could not have manage that last year. Encouraged him to participate in resistance exercise 2 times a week whilst on GLP ones Are associated with muscle mass loss Discussed weight loss and use of Tirzepatide with loss of muscle mass Labs - 07/21 570 5.7 HBA1c 5.6 Urinary Symptoms Review - Nocturia with frequent night time urination, occurring sometimes several times in succession. - No significant issues with the force of the urinary stream reported. - Symptoms have been persistent for an unspecified duration. Previous treatment with Tamsulosin was ineffective Erectile dysfunction related diabetes Has some urgency frequency Nocturia progressive Erectile dysfunction Has heartburn with high-dose tadalafil Labs - 04/20 T 212 PSA 0.3 PFSH Medical History History of snoring Hematuria Hyperkalemia BPH (benign prostatic hyperplasia) Carpal tunnel syndrome Annual physical exam Type 2 diabetes mellitus Cervical spine degeneration Hyperlipidemia Overweight Ankle fracture, left SVT (supraventricular tachycardia) Peripheral neuropathy Chronic foot ulcer Surgical History Hx of colonoscopy History of carpal tunnel surgery of right wrist H/O cardiac radiofrequency ablation H/O foot surgery [place] teeth extracted Family History Father Lung cancer Mother No problems noted. 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 [employer] Cognitive needs: No Hearing needs: No Vision needs: No Review of Systems Const All systems reviewed & are unremarkable except as noted in HPI and below Reports no additional complaints Resp Reports no additional complaints GI Reports no additional complaints Reports as per HPI Musc Reports no additional complaints Physical Exam Telemedicine evaluation Appropriate responses Regular breathing rate and rhythm HEENT Head: Yes normal to inspection Ears: hearing grossly normal bilaterally Eyes General: appearance normal, both eyes and all related structures Neck Neck: Yes normal visual inspection Chest Chest palpation & inspection: normal inspection of the chest Resp Effort & Inspection: normal respiratory effort and able to speak in complete sentences Telehealth Telehealth Telehealth Platform: Zank Location of provider rendering services: practice address Location of patient: address on file Patient Identification confirmed using: Name, : Yes Telehealth method: video Patient verbally consented to treatment: Yes Patient verbally consented to billing insurance company: Yes Patient informed of any privacy concerns related to visit: Yes Minutes spent on Phone/Video with Pt.: 15 Assessment & Plan Assessment & Plan (1) Erectile dysfunction associated with type 2 diabetes mellitus: Code(s): E11.69 - Type 2 diabetes mellitus with other specified complication; N52.1 - Erectile dysfunction due to diseases classified elsewhere Category: Medical (2) Nocturia associated with benign prostatic hyperplasia: Code(s): N40.1 - Benign prostatic hyperplasia with lower urinary tract symptoms; R35.1 - Nocturia Category: Medical Plan Six-month follow-up lab work Refill prescription Orders: Orders Testosterone, Total 5 Months E29.1 - Testicular hypofunction Lutenizing Hormone 5 Months E29.1 - Testicular hypofunction Medications: Refilled [enclomiphene] Daily - Fax to [facility] 1 tab PO DAILY 90 tabs 1RF 90 days E29.1 - Testicular hypofunction Patient Instructions: This note is constructed using voice recognition software. While every effort has been made to ensure accuracy construction sales manager errors may have been included. Imaging studies, laboratory and physical exam results were discussed and reviewed in detail. No major barriers to patient understanding were identified. An opportunity to ask questions regarding the treatment plan was provided. All questions were answered. The patient expressed understanding and agreement with the above treatment plan. The patient is aware they should contact our office by phone for worsening of their current condition or the appearance of new urologic symptoms. Compliance is encouraged with any medications and followup testing that is ordered. It is a privilege to participate in the urologic care of your patient. If you have any questions or concerns regarding treatment for the above conditions, or other urologic issues, please do not hesitate to contact me. The office telephone contact is [phone]. Sincerely, Dr Rahul Hemphill MD, AN[facility] Urology Compassionate Specialist Care for the Genitourinary System Coding Level of Care Code Tele Est Pt Level 3 (12307) Complex EM visit Add On G2211 Diagnoses Erectile dysfunction associated with type 2 diabetes mellitus E11.69; N52.1 Nocturia associated with benign prostatic hyperplasia N40.1; R35.1
--- OUTSIDE RECORDS SUMMARY | 2025-07-28 11:11 | XMS_ITS | Patient Health Record ---
Author Organization [facility] Address [address] [place] [address] Care Team Providers Care Junior Designer Name Role Phone Leonarda Gandhi MD Primary Care Provider Unavaila karen Palomares Arlene Unavailable [phone] Allergies Allergen (clinical drug ingredient) Drug/Non Drug [...] Problem Acquired hammer toe of right foot ([id number] ) Other hammer toe(s) (acquired), right foot (M20.41) Active confirmed Problem Acquired hammer toe of left foot (8233845535807566 ) Other hammer toe(s) (acquired), left foot (M20.42) Active confirmed Problem Polyneuropathy due to type 2 diabetes mellitus (944930193) Type 2 diabetes mellitus with diabetic polyneuropathy (E11.42) Active confirmed Vital Signs Blood pressure diastolic 77 mm Hg 06/22/2025 Height 6ft 5in in 06/22/2025 Blood pressure systolic 110 mm Hg 06/22/2025 Weight 316 lbs 06/22/2025 BMI 37.47 kg/m2 06/22/2025 Procedures Procedure Date Ordered Date Performed Result Body Sit e 50307-ACOMQNF NAIL, 6 OR MORE 09/14/2024 N/A 52833-VOGR SKIN LESIONS, OVER 4 09/14/2024 N/A 39156-YBZZHQU NAIL, 6 OR MORE 11/30/2024 N/A 85731-FDIZ SKIN LESIONS, OVER 4 11/30/2024 N/A 81849-ZIOTTBG NAIL, 6 OR MORE 02/09/2025 N/A 28308-PSBO SKIN LESIONS, OVER 4 02/09/2025 N/A 02796-WPJOEZX NAIL, 6 OR MORE 04/19/2025 N/A 31135-PERS SKIN LESIONS, OVER 4 04/19/2025 N/A 70923-GUCCMVQ NAIL, 6 OR MORE 06/22/2025 N/A 28233-ARZV SKIN LESIONS, OVER 4 06/22/2025 N/A Encounters Encounter Location Date [facility] [address] [address] [facility]/14/2024 Arlene Black Type 2 diabetes helen itus with diabetic polyneuropathy E11.42 and Tinea unguium B35.[address] [address] 11/30/2024 Arlene Black Type 2 diabetes helen itus with diabetic polyneuropathy E11.42 ; Tinea unguium B35.1 and Xerosis of skin L85.[address] [address] 02/09/2025 Arlene Black Type 2 diabetes helen itus with diabetic polyneuropathy E11.42 ; Tinea unguium B35.1 and Xerosis of skin L85.[address] [address] 04/19/2025 Arlene Palomares Type 2 diabetes helen itus with diabetic polyneuropathy E11.42 and Tinea unguium B35.1 [facility] [address] [address] 06/22/2025 Arlene Black Type 2 diabetes helen [...] Test Name Order Date *Wound Culture 06/15/2024 66926-PMFSBKT NAIL, 6 OR MORE 06/15/2024 34717-OHRZRHD NAIL, 6 OR MORE 09/14/2024 63227-LVZQBKO NAIL, 6 OR MORE 11/30/2024 31701-GKXVVCF NAIL, 6 OR MORE 09/02/2023 24104-STRIWMU NAIL, 6 OR MORE 10/28/2023 96265-DAPZAAK NAIL, 6 OR MORE 01/21/2024 46836-ICEWZIY NAIL, 6 OR MORE 04/09/2024 04490-TPMANVK NAIL, 6 OR MORE 02/09/2025 45365-IKKWTME NAIL, 6 OR MORE 04/19/2025 75222-PVQNURY NAIL, 6 OR MORE 06/22/2025 77577- Debride <25 sq cm 10/28/2023 42669- Debride <25 sq cm 06/29/2024 72639 I&D ABSCESS- SIMPLE,SINGLE 024 98482-UFPM SKIN LESIONS, OVER 4 09/14/20 24 35480-OXVI SKIN LESIONS, OVER 4 02/10/20 25 38968-AVAW SKIN LESIONS, OVER 4 11/30/19 25 36484-FIER SKIN LESIONS, OVER 4 10/28/19 24 89113-DSZI SKIN LESIONS, OVER 4 01/21/20 24 14216-VFZM SKIN LESIONS, OVER 4 06/15/20 24 09747-BSPN SKIN LESIONS, OVER 4 04/09/20 24 12624-WMHC SKIN LESIONS, OVER 4 09/02/20 23 58378-CQWA SKIN LESIONS, OVER 4 06/22/20 25 46604-FSNV SKIN LESIONS, OVER 4 04/19/20 25 Next Appt Details Provider Name:Arlene Palomares , 09/07/2025 08:15:00 AM, 1983 [facility], [place], [address], Insurance Providers Payer Name Payer Address Payer Phone Subscriber Number Group Number Insured Name Patient Relationship to Insured Coverage Start Date Coverage End Date [facility] [address] [place] [address] [id number] Woody Davila Self - patient is [...]
== END 2025-07-28 10:56 | disposition home or self-care (01) ==
LOC: HO.HUSH 09:58
PROVIDERS: PCP Internal Medicine; Visit Provider Urology
DX: E11.69 Type 2 diabetes mellitus with other specified complication (principal); N52.1 Erectile dysfunction due to diseases classified elsewhere; N40.1 Benign prostatic hyperplasia with lower urinary tract symptoms; R35.1 Nocturia
CPT/HCPCS: 99213; G2211

== ENCOUNTER 2025-10-15 06:57 | Outpatient (REF) | payer OTHER, SELFPAY ==
--- OUTSIDE RECORDS SUMMARY | 2025-10-15 07:00 | XMS_ITS | Patient Health Record ---
Author Organization [facility] Address [address] [place] [address] Care Team Providers Care Transaction Coordinator Name Role Phone Leonarda Gandhi MD Primary Care Provider Unavaila karen Palomares Arlene Unavailable [phone] Allergies Allergen (clinical drug ingredient) Drug/Non Drug Allergy documented on EMR Reaction Allergy Type Onset Date Status acetaminophen Tylenol only liquid form, rash Drug Allergy Active lisinopril Lisinopril Unknown Drug Allergy Activ e Results Component Value Reference Range Notes HEMOGLOBIN A1C (GLYCOHEMOGLO BIN) Reviewed date:11/30/2024 08:54:12 AM Interpretation: Performing Lab: Notes/Report: HEMOGLOBIN A1C % (HH) 5.9 HEMOGLOBIN A1C (GLYCOHEMOGLO BIN) Reviewed date:09/07/2025 08:10:41 AM Interpretation: Performing Lab: Notes/Report: HEMOGLOBIN A1C % (HH) 5.9 Reason For Referral No Information Medications Medication SIG (Take, Route, Frequency, Duration) Notes Start Date End Date Status metFORMIN HCl ER 750 MG Oral; Duration: 90 Days Active Cephalexin 500 MG 1 capsule Orally tatiana ry 8 hrs; Duration: 10 days Not-Takin g Sildenafil Citrate 100 MG Oral; Duration: 30 Days Not- Taking Extra Depth Orthopedic Shoes (1 Pair) with Customized Heat Molded Multidensity Innersoles (3 Pair) Dx: NIDDM/Polyneuropathy (E11.42), Hammertoe Foot Deformity (M20.41,M20.42), Preulcerative Skin Lesion(s) (L85.1); Duration: 365 days 06/22/2025 Active Ammonium Lactate 12 % 1 application Exte rnally Twice a day; Duration: 30 days Active Atorvastatin Calcium 20 MG 1 tablet Orally Once a day Active Mounjaro 2.5 MG/0.5ML as directed Subcutaneous Active metFORMIN HCl 1000 MG 1 tablet with a me al Orally Once a day Not-Taking Ciprofloxacin HCl 500 MG 1 tablet Orally every 12 hrs; Duration: 7 days 06/18/2024 Not-Taking Extra Depth Orthopedic Shoes (1 Pair) [...] Polyneuropathy due to type 2 diabetes mellitus (534275708) Type 2 diabetes mellitus with diabetic polyneuropathy (E11.42) Active confirmed Vital Signs Blood pressure diastolic 70 mm Hg 09/07/2025 Height 6ft 5in in 09/07/2025 Blood pressure systolic 120 mm Hg 09/07/2025 Weight 316 lbs 09/07/2025 BMI 37.47 kg/m2 09/07/2025 Procedures Procedure Date Ordered Date Performed Result Body Sit e 36705-CDUFYPM NAIL, 6 OR MORE 11/30/2024 N/A 44338-FNTV SKIN LESIONS, OVER 4 11/30/2024 N/A 02443-IRGGWPW NAIL, 6 OR MORE 02/09/2025 N/A 00595-YCPE SKIN LESIONS, OVER 4 02/09/2025 N/A 85198-XFRZCOU NAIL, 6 OR MORE 04/19/2025 N/A 94025-VNHM SKIN LESIONS, OVER 4 04/19/2025 N/A 31672-LMXHMMC NAIL, 6 OR MORE 06/22/2025 N/A 94401-SIOJ SKIN LESIONS, OVER 4 06/22/2025 N/A 45875-EDQNXDK NAIL, 6 OR MORE 09/07/2025 N/A 03202-Guzvrpws Plate 09/07/2025 N/A 42013-GKGZ SKIN LESIONS, OVER 4 09/07/2025 N/A Encounters Encounter Location Date Provider Diagnosis [address] [address] 11/30/2024 Arlene Black Type 2 diabetes helen itus with diabetic polyneuropathy E11.42 ; Tinea unguium B35.1 and Xerosis of skin L85.[address] [address] 02/09/2025 Arlene Black Type 2 diabetes helen itus with diabetic polyneuropathy E11.42 ; Tinea unguium B35.1 and Xerosis of skin L85.[address] [address] 04/19/2025 Arlene Black Type 2 diabetes helen itus with diabetic polyneuropathy E11.42 and Tinea unguium B35.[address] [address] 06/22/2025 Arlene Black Type 2 diabetes helen itus with diabetic polyneuropathy E11.42 ; Other hammer toe(s) (acquired), right foot M20.41 ; Tinea unguium B35.1 and Other hammer toe(s) (acquired), left foot M20.42 [facility] [address] [address] 09/07/2025 Arlene Black Type 2 diabetes helen itus with diabetic polyneuropathy E11.42 ; Tinea unguium B35.1 and Ingrown nail L60.0 Assessments Encounter Date Diagnosis (ICD Code) Assessment [...] mellitus with diabetic polyneuropathy (ICD-10 - E11.42) 09/07/2025 Type 2 diabetes mellitus with diabetic polyneuropathy (ICD-10 - E11.42) 09/07/2025 Tinea unguium (ICD-10 - B35.1) 09/07/2025 Ingrown nail (ICD-10 - L60.0) 06/22/2025 Tinea unguium (ICD-10 - B35.1) 02/09/2025 Tinea unguium (ICD-10 - B35.1) 11/30/2024 Tinea unguium (ICD-10 - B35.1) 11/30/2024 Xerosis of skin (ICD-10 - L85.3) 02/09/2025 Xerosis of skin (ICD-10 - L85.3) 06/22/2025 Other hammer toe(s) (acquired), left foot (ICD-10 - M20.42) 09/07/2025 Other Plan Of Treatment Pending Test Test Name Order Date *Wound Culture 06/15/2024 08610-BAUTNIM NAIL, 6 OR MORE 06/15/2024 11604-ZZVUGHG NAIL, 6 OR MORE 09/14/2024 74939-OKMCMSI NAIL, 6 OR MORE 11/30/2024 05949-NJNVNMY NAIL, 6 OR MORE 09/02/2023 57445-OXGOUMG NAIL, 6 OR MORE 10/28/2023 06573-GRJVXQT NAIL, 6 OR MORE 01/21/2024 25554-JVUFQAJ NAIL, 6 OR MORE 04/09/2024 55382-GAITBFB NAIL, 6 OR MORE 02/09/2025 43808-XRDPKFC NAIL, 6 OR MORE 04/19/2025 85488-VUQQMUB NAIL, 6 OR MORE 06/22/2025 29641-YZQKASO NAIL, 6 OR MORE 09/07/2025 98126-Tzxyjjox Plate 09/07/2025 67706- Debride <25 sq cm 10/28/2023 31015- Debride <25 sq cm 06/29/2024 93289 I&D ABSCESS- SIMPLE,SINGLE 024 76741-JFBZ SKIN LESIONS, OVER 4 09/14/20 24 06814-AYMI SKIN LESIONS, OVER 4 02/10/20 25 33803-IMMJ SKIN LESIONS, OVER 4 11/30/19 25 05657-CXFC SKIN LESIONS, OVER 4 10/28/19 24 01344-CLEJ SKIN LESIONS, OVER 4 01/21/20 24 98700-FILT SKIN LESIONS, OVER 4 06/15/20 24 79356-LOIM SKIN LESIONS, OVER 4 04/09/20 24 41970-FTIQ SKIN LESIONS, OVER 4 09/07/20 25 09011-RAAO SKIN LESIONS, OVER 4 06/22/20 25 36842-SGIX SKIN LESIONS, OVER 4 04/19/20 25 29578-HGFR SKIN LESIONS, OVER 4 09/02/20 23 Next Appt Details Provider Name:Arlene Palomares , 12/16/2025 09:15:00 AM, 1983 [facility], [place], [address], Insurance Providers Payer Name Payer Address Payer Phone Subscriber Number Group Number Insured Name Patient Relationship to Insured Coverage Start Date Coverage End Date [facility] [address] [place] [address] [id number] Woody Davila Self - patient is [...]
[2025-10-15 11:49] LABS: MANUAL DIFF FLAG NO
[2025-10-15 11:52] LABS: Hematocrit 50.3 % (42.0-52.0); Hemoglobin 17.3 g/dl (14.0-18.0); Imm Gran Abs Auto 0.03 X10*3/uL (0.00-0.03); Imm Gran Pct Auto 0.4 % (0.0-0.4); Lymphocytes Absolute Auto 2.1 X10*3/uL (1.2-4.9); Mean Corpuscular HGB Conc 34.4 g/dl (31.0-36.0); Mean Corpuscular Hemoglobin 30.1 pg (27.0-33.0); Mean Corpuscular Volume 87.6 fL (80.0-98.0); NRBC Abs Auto 0.000 X10*3/uL (0.0-0.012); NRBC Pct Auto 0.0 /100WBC (0.0-0.2); Platelet Count 283 X10*3/uL (160-400); Red Blood Count 5.74 X10*6/uL (4.60-5.80); White Blood Count 8.4 X10*3/uL (4.8-10.8)
[2025-10-15 12:18] LABS: Alanine Aminotransferase 25 U/L (0-40); Albumin Level 4.3 g/dL (3.5-5.0); Alkaline Phosphatase 77 U/L (39-117); Anion Gap 12 (12-20); Aspartate Amino Transferase 29 U/L (5-37); Blood Urea Nitrogen 11 mg/dL (9-16); Calcium 9.2 mg/dL (8.4-10.2); Carbon Dioxide 25 mmol/L (22-29); Chloride 107 mmol/L (96-108); Cholesterol 112 mg/dL (<200); Estimated Glomerular Filt Rate > 60; HDL Cholesterol 33 mg/dL (>40); Potassium 4.4 mmol/L (3.3-5.1); Sodium 140 mmol/L (135-145); Total Protein 6.9 g/dL (6.5-8.0); Triglycerides 95 mg/dL (<150)
== END 2025-10-15 06:58 | disposition home or self-care (01) ==
LOC: HO.HMGCLDS 06:57
PROVIDERS: PCP Internal Medicine; Visit Provider Internal Medicine
DX: I10 Essential (primary) hypertension (principal); E78.5 Hyperlipidemia, unspecified; E11.9 Type 2 diabetes mellitus without complications
CPT/HCPCS: 36415; 80053; 80061; 82043; 82570; 83036; 85025

== ENCOUNTER 2025-10-17 11:04 | Outpatient (AMB) | payer OTHER, SELFPAY ==
--- NOTE | 2025-10-17 11:44 | MHC.PC.OV ---
Vital Signs 10/17/25 11:47 Height 6 ft 5 in Weight 309 lb BMI 36.6 BP 128/78 Blood Pressure Location Rt brachial Position Sitting Respiration 18 Pulse 80 Pulse Source Pulse Oximeter Pulse Oximetry (%) 97 Oxygen Delivery Method Room Air Intake Visit Reasons: 3 mo follow up Intake Note: Pt is here today for 3 months follow up visit. Allergies acetaminophen (Acetaminophen) Allergy (Intermediate, Verified 10/17/25 11:50) rash from liquid form after prolonged use lisinopril Adverse Reaction (Intermediate, Verified 10/17/25 11:50) Cough Medication List - Last Reconciled 10/17/25 by Leonarda Gandhi MD atorvastatin 20 mg PO DAILY [enclomiphene 1 tab PO DAILY 90 days] metformin ER 750 mg PO DAILY Mounjaro (tirzepatide) 2.5 mg (0.5 mL) subcut QWEEK NS olmesartan 20 mg PO DAILY Tobacco use date assessed: 10/17/25 Dental Screening Dental Screen Date: 03/14/25 HPI 3 mo follow up HPI Details Patient presents for the follow-up on hypertension hyperlipidemia and type 2 diabetes stable on current medications. He complains of chronic lower back pain worse at the end of the day after wearing heavy vest at work. Patient denies pain numbness or weakness in the lower extremities. [facility] Medical History (Updated 10/17/25 @ 12:52 by Leonarda Gandhi MD) History of snoring Hematuria Hyperkalemia BPH (benign prostatic hyperplasia) Carpal tunnel syndrome Annual physical exam Type 2 diabetes mellitus Cervical spine degeneration Hyperlipidemia Overweight Ankle fracture, left SVT (supraventricular tachycardia) Peripheral neuropathy Chronic foot ulcer Surgical History Hx of colonoscopy History of carpal tunnel surgery of right wrist H/O cardiac radiofrequency ablation H/O foot surgery Llewellyn teeth extracted Family History Father Lung cancer Mother No problems noted. 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 Cognitive needs: No Hearing needs: No Vision needs: No Questionnaire Thrive Questionnaire Date Thrive assessed: 03/07/25 I am a: Patient What is your living situation today?: I have a steady place to live Within the past 12 months, did the food you bought not last and you didn't have the money to get more?: Never true Within the past 12 months, did you worry whether your food would run out before you got money to buy more?: Never true Do you have trouble paying for medicines?: No Do you have trouble getting transportation to medical appointments?: No Do you have trouble paying your heating and electricity bill?: No Do you have trouble taking care of your child, family member or friend?: No Do you have trouble with day-to-day activities such as bathing, preparing meals, shopping, managing finances, etc.?: No Are you currently unemployed and looking for a job?: No Are you interested in more education?: No Currently or been in a relationship where the following occur: No concerns reported THRIVE Score: 0 HAIDER-7 AMB Questionnaire HAIDER-7 Date HAIDER - 7 assessed: 03/14/25 Source: Developed by Drs. Woody Rocha, Franny Pruitt, Luis Christianson and colleagues, with an educational cathleen from [employer]. Review of Systems Const All systems reviewed & are unremarkable except as noted in HPI and below Eyes Reports no additional complaints ENT Reports no additional complaints Card Reports no additional complaints Resp Reports no additional complaints GI Reports no additional complaints Physical exam (Primary Care) Vital Signs: Last Vital Signs Pulse 80 10/17/25 11:47 Resp 18 10/17/25 11:47 BP 128/78 10/17/25 11:47 Pulse Ox 97 10/17/25 11:47 Oxygen Delivery Method Room Air 10/17/25 11:47 BMI result Body Mass Index 36.6 Tobacco/Smoking Status: Tobacco use Status Tobacco use date assessed 10/17/25 10/17/25 11:53 Patient Tobacco Use Status Current everyday Tobacco 10/17/25 11:44 Tobacco use type Cigarette 10/17/25 11:44 e-Cigarette/Vaping Use Never Used 10/17/25 11:44 Thrive Assessment: Date of Thrive Assessment Date Thrive assessed 03/07/25 10/17/25 11:44 Currently or been in a relationship where the following occur: No concerns reported Const General: no acute distress HENMT Head: Yes normal to inspection Mouth: Normal oral and palatal mucosa present Eyes General: appearance normal, both eyes and all related structures Neck Neck: Yes no lymphadenopathy and Yes supple Resp Effort & Inspection: normal respiratory effort Auscultation: clear to auscultation bilaterally Cardio Rhythm: regular rhythm Heart sounds: S1 normal heart sound present and S2 normal heart sound present GI Palpation (GI): Soft to palpation Back/Spine/Pelvis Other: Decrease range of motion in lower lumbar region straight leg rising 90 degrees bilaterally, deep tendon reflexes 2+ bilaterally Extrem General: Yes no clubbing, cyanosis or edema Coding Level of Care Code Est Pt Level 4 (13287) Diagnoses HTN (hypertension) I10 Hyperlipidemia E78.5 Type 2 diabetes mellitus E11.9 Lumbar back pain M54.50 Assessment & Plan Assessment & Plan (1) HTN (hypertension): Code(s): I10 - Essential (primary) hypertension Category: Medical Plan: Continue olmesartan (2) Hyperlipidemia: Code(s): E78.5 - Hyperlipidemia, unspecified Category: Medical Plan: Continue statin (3) Type 2 diabetes mellitus: Code(s): E11.9 - Type 2 diabetes mellitus without complications Category: Medical Plan: A1c is 5.6 but patient reports craving more sweets and is interested in increasing Mounjaro to 5 mg weekly. ADA diet regular exercise weight loss discussed with the patient. He will continue metformin and increase Mounjaro to 5 mg weekly. He will follow-up in 4 months with a fasting labs before (4) Lumbar back pain: Code(s): M54.50 - Low back pain, unspecified Category: Medical Plan: Obtain x-ray of lumbar spine and refer to physical therapy Orders: Orders Comprehensive [place]. Panel Fast 5 Months E11.9 - Type 2 diabetes mellitus without complications, E78.5 - Hyperlipidemia, unspecified, I10 - Essential (primary) hypertension Complete Blood Count Auto Diff 5 Months E11.9 - Type 2 diabetes mellitus without complications, E78.5 - Hyperlipidemia, unspecified, I10 - Essential (primary) hypertension Hemoglobin A1c 5 Months E11.9 - Type 2 diabetes mellitus without complications, E78.5 - Hyperlipidemia, unspecified, I10 - Essential (primary) hypertension PT Evaluation and Treatment Today E11.9 - Type 2 diabetes mellitus without complications, E78.5 - Hyperlipidemia, unspecified, I10 - Essential (primary) hypertension Lipid Panel 5 Months E11.9 - Type 2 diabetes mellitus without complications, E78.5 - Hyperlipidemia, unspecified, I10 - Essential (primary) hypertension Microalbumin, Random (w Creat) 5 Months E11.9 - Type 2 diabetes mellitus without complications, E78.5 - Hyperlipidemia, unspecified, I10 - Essential (primary) hypertension XR lumbar spine 2-3V Today E11.9 - Type 2 diabetes mellitus without complications, E78.5 - Hyperlipidemia, unspecified, I10 - Essential (primary) hypertension Medications: New Mounjaro (tirzepatide) 5 mg (0.5 mL) subcut QWEEK 2 mL 4RF NS Discontinued Mounjaro (tirzepatide) Discontinued Reason: Doctor's Order 2.5 mg (0.5 mL) subcut QWEEK 6 mL 1RF NS
[2025-10-17 11:47] VITALS: BP 128/78; PULSE 80; RESP 18; O2SAT 97; BMI 36.6
--- OUTSIDE RECORDS SUMMARY | 2025-10-17 14:02 | XMS_ITS | Patient Health Record ---
[facility] Address [address] [place] [address] Care Team Providers Care Executive Housekeeper Name Role Phone Leonarda Gandhi MD Primary Care Provider Unavaila karen Palomares Arlene Unavailable [phone] Allergies Allergen (clinical drug ingredient) Drug/Non Drug [...] Polyneuropathy due to type 2 diabetes mellitus ([id number]) Type 2 diabetes mellitus with diabetic polyneuropathy (E11.42) Active confirmed Vital Signs Blood pressure diastolic 70 mm Hg 09/07/2025 Height 6ft 5in in 09/07/2025 Blood pressure systolic 120 mm Hg 09/07/2025 Weight 316 lbs 09/07/2025 BMI 37.47 kg/m2 09/07/2025 Procedures Procedure Date Ordered Date Performed Result Body Sit e 73794-FWNZRSX NAIL, 6 OR MORE 11/30/2024 N/A 39505-XWCS SKIN LESIONS, OVER 4 11/30/2024 N/A 88653-WFTAOVI NAIL, 6 OR MORE 02/09/2025 N/A 10737-CRQS SKIN LESIONS, OVER 4 02/09/2025 N/A 51630-WQPILAF NAIL, 6 OR MORE 04/19/2025 N/A 21028-PKFI SKIN LESIONS, OVER 4 04/19/2025 N/A 47768-GXDHBZZ NAIL, 6 OR MORE 06/22/2025 N/A 28916-BCCR SKIN LESIONS, OVER 4 06/22/2025 N/A 93426-VPPSUET NAIL, 6 OR MORE 09/07/2025 N/A 81463-Srtjanbw Plate 09/07/2025 N/A 31312-VWCS SKIN LESIONS, OVER 4 09/07/2025 N/A Encounters Encounter Location Date Provider Diagnosis [address] [address] 11/30/2024 Arlene Black Type 2 diabetes helen itus with diabetic polyneuropathy E11.42 ; Tinea unguium B35.1 and Xerosis of skin L85.[address] [address] 02/09/2025 Arlnee Black Type 2 diabetes helen itus with diabetic polyneuropathy E11.42 ; Tinea unguium B35.1 and Xerosis of skin L85.[address] [address] 04/19/2025 Arlene Black Type 2 diabetes helen itus with diabetic polyneuropathy E11.42 and Tinea unguium B35.[address] [address] 06/22/2025 Arlene Black Type 2 diabetes helen itus with diabetic polyneuropathy E11.42 ; Other hammer toe(s) (acquired), right foot M20.41 ; Tinea unguium B35.1 and Other hammer toe(s) (acquired), left foot M20.42 [facility] [address] [address] 09/07/2025 Arlene Black Type 2 diabetes helen [...] Test Name Order Date *Wound Culture 06/15/2024 41152-RYQEHYA NAIL, 6 OR MORE 06/15/2024 20273-ADBMTML NAIL, 6 OR MORE 09/14/2024 72684-ZAUBBIO NAIL, 6 OR MORE 11/30/2024 09859-NXJUDKA NAIL, 6 OR MORE 09/02/2023 51864-YAHUBXL NAIL, 6 OR MORE 10/28/2023 28768-XYOWEDY NAIL, 6 OR MORE 01/21/2024 94284-KYRRVKS NAIL, 6 OR MORE 04/09/2024 01499-CJTTNUF NAIL, 6 OR MORE 02/09/2025 16578-JJWGRRP NAIL, 6 OR MORE 04/19/2025 35977-ZVHSJUF NAIL, 6 OR MORE 06/22/2025 56862-UHSOJSJ NAIL, 6 OR MORE 09/07/2025 89618-Qdjvxblk Plate 09/07/2025 57549- Debride <25 sq cm 10/28/2023 95386- Debride <25 sq cm 06/29/2024 30790 I&D ABSCESS- SIMPLE,SINGLE 024 08428-CHFH SKIN LESIONS, OVER 4 09/14/20 24 86992-OPIV SKIN LESIONS, OVER 4 02/10/20 25 01093-OKZZ SKIN LESIONS, OVER 4 11/30/19 25 26978-CDGT SKIN LESIONS, OVER 4 10/28/19 24 03379-WPNP SKIN LESIONS, OVER 4 01/21/20 24 25519-JLHO SKIN LESIONS, OVER 4 06/15/20 24 67667-HHLI SKIN LESIONS, OVER 4 04/09/20 24 62805-SGTD SKIN LESIONS, OVER 4 09/07/20 25 73551-BRNJ SKIN LESIONS, OVER 4 06/22/20 25 51245-XCGQ SKIN LESIONS, OVER 4 04/19/20 25 04163-TRQO SKIN LESIONS, OVER 4 09/02/20 23 Next Appt Details Provider Name:Arlene Palomares , 12/16/2025 09:15:00 AM, [address] [facility], [place], [address], Insurance Providers Payer Name Payer Address Payer Phone Subscriber Number Group Number Insured Name Patient Relationship to Insured Coverage Start Date Coverage End Date [facility] [address] [facility] [place] [address] [id number] Woody Davila Self - patient is [...]
== END 2025-10-17 12:54 | disposition home or self-care (01) ==
LOC: HO.HMCC 11:05
PROVIDERS: PCP Internal Medicine; Visit Provider Internal Medicine
DX: I10 Essential (primary) hypertension (principal); E78.5 Hyperlipidemia, unspecified; E11.9 Type 2 diabetes mellitus without complications; M54.50 Low back pain, unspecified